=== PATIENT | female | born 1995 | race Caucasian/White ===

== ENCOUNTER 2019-12-06 18:25 | Inpatient (IN) | payer MEDICAID, SELFPAY ==
[2019-12-06 19:00] VITALS: BP 135/100; PULSE 113; RESP 19; TEMP 36.4; O2SAT 96
[2019-12-06 19:10] VITALS: BP 135/100; PULSE 113; RESP 18; TEMP 36.4; O2SAT 96
[2019-12-06] MEDS: LORazepam 1 MG TABLET 2 MG PO (19:42)
--- NOTE | 2019-12-06 19:42 | ED_ITS ---
HPI - Psych General Chief Complaint: Psychiatric Symptoms Stated Complaint: DEPRESSION,SECTION 12 Time Seen by Provider: 12/06/19 19:32 Source: patient Mode of arrival: ambulatory Limitations: no limitations History of Present Illness HPI Narrative: 24-year-old female presents via EMS on section 12 for ETOH abuse and depression. She reports that she has been using alcohol on a daily basis drinking at least 6 nips per day, possibly even more. She has been punching herself and states to have multiple bruises all over body. States that punching herself and feeling physical pain helps alleviate her motion all pain. She does not report any suicidal or homicidal ideation, and does not r eport thoughts of hurting her children or her family. She is unable to maintain her own well-being, and states to feel desperate for help at this time. She states that her fiance is really supportive, and helps her with the children. She feels like she is a bad mother. She does not report any physical complaints, denies chest pain or pressure, palpitations, shortness of breath, fevers, chills, abdominal pain, abdominal distention, dysuria, hematuria, edema, dizziness, lightheadedness, abnormal vaginal bleeding, and swelling to the hands and feet. MD complaint: feels depressed and alcohol abuse Onset (ago): month(s) Duration: constant History of same: No Relieving factors: none Exacerbating factors: alcohol Context: recent alcohol abuse Associated psychiatric symptoms: depression Associated symptoms: denies other symptoms If self harm: self-inflicted trauma Related Data Allergies Allergy/AdvReac Type Severity Reaction Status Date / Time No Known Allergies Allergy Unverified 11/02/19 16:25 Review of Systems Review of Systems: Constitutional: No Fever, No Chills ENT/Mouth: No Ear Pain, No Nasal Congestion, No sore throat Eyes: No Eye Pain, No Swelling, No Redness Cardiovascular: No Chest Pain, No SOB Respiratory: No Cough, No Sputum, No Dyspnea Gastrointestinal: No Nausea, No Vomiting, No Diarrhea, No Hematochezia, No Melena Genitourinary: No Dysuria, No Urinary Frequency, No Hematuria Musculoskeletal: No Myalgias Skin: positive bruises in various stages of healing secondary to self-harm, No Skin Lesions, No rash Neuro: No Weakness, No Numbness, No Paresthesias, No Dizziness, No Headache Psych: positive Anxiety, positive Depression, positive alcohol abuse, positive marijuana use No SI/HI Heme/Lymph: No Lymphadenopathy Endocrine: No Polyuria, No Polydipsia Yes all other systems are reviewed and are negative [facility] Past Medical History Attestation statement: The following information was validated with the patient. Medical History (Updated 12/07/19 @ 01:57 by Minda Lucia NP) Anxiety Post depression : 2 Para: 2 Total number of abortions (spontaneous and elective): 0 Date of Last Menstrual Period: 12/05/19 Social History Social History Alcohol intake: current Alcohol intake frequency: 3 or more drinks per day Alcohol type: hard liquor Smoking Status: Smoker, status unknown Smoked in Last 30 Days: No Use of substances other than those prescribed or required for medical reasons: No Advance Directives: No Advance Directives Information Provided: Yes Physical Exam Vital Signs: Vital Signs: Vital Signs Temp Pulse Resp BP Pulse Ox 12/06/19 22:17 97.7 F 96 18 139/85 98 12/06/19 19:10 97.5 F 113 H 18 135/100 H 96 12/06/19 19:00 97.5 F 113 H 19 135/100 H 96 Body Mass Index 30.0 Appearance: Alert. Oriented X3. moderate distress, depressed. Head: Normal external exam. Normocephalic. Atraumatic. No Harris signs noted. No raccoon eyes noted Eyes: PERRLA. EOMI. Conjunctiva and sclera normal. Eyelids normal. ENT: TM's Normal. Pharynx normal. Uvula midline. Moist mucous membranes. No trismus noted. No drooling noted. No muffled voice noted. Neck: Normal inspection. Neck supple. No adenopathy. Thyroid Normal. No meningeal signs. No neck mass noted. CVS: Normal heart rate and rhythm. Heart sound normal. No murmurs noted. Pulses equal to all extremities. Respiratory: No respiratory distress. Painless inspiration. Breath sounds normal. No wheezes/rales/rhonchi noted. Chest nontender. No accessory muscle usage noted or decreased air movement noted. Abdomen: Soft and nontender. Bowel sounds normal in all 4 quadrants. No distention noted. No organomegaly noted. No visible injury noted. Back: No CVA tenderness. Full range of motion noted. Skin: multiple bruises in various stages of healing from self-harm to arms and legs. Skin warm and dry. Normal skin color. Normal skin turgor. No rashes/lesions/lacerations noted. Extremities: No lower extremity edema. Extremities exhibit normal range of motion. Extremities nontender. Neuro: cranial nerves 2-12 intact, no focal neural deficits, strength 5/5 to all extremities, No motor deficit. No sensory deficit. Reflexes normal. Course Course Course Narrative: patient presents via EMS seeking help for alcohol abuse and depression. She has been drinking large amounts of alcohol on a daily basis as well as intentionally hurting herself. She is on a Section 12, we will order and consult and clear medically with CBC, Chem 7, urine pregna ncy test, and drugs of abuse screen. Reevaluation(s) Reevaluation #1: N Consult pending. Sign out to Dr. Toledo. Time: 01:56 MDM - Psych Differential Diagnosis Differential diagnosis: Likely acute psychosis, depression, acute anxiety, post- traumatic stress disorder, substance abuse, alcohol intoxication and mood disorder Restraints Face to Face Assessment: Face to Face Assessment: Current Situation: After assessment of the patient, a review of the pertinent medical record and a discussion with nursing staff, I feel the patient requires a restrain intervention. Reaction To: [] Medical Condition: [] Behavioral State: [] Continued Need: [] Medical Records Attestation: I reviewed the patient's medical records. Lab Data Attestation: I reviewed the patient's lab results. Result diagrams: 12/06/19 19:49 Labs: Lab Results 12/06/19 12/06/19 12/06/19 Range/Units 19:45 19:45 19:49 WBC 5.0 (4.8-10.8) X10*3/uL RBC 5.29 (4.20-5.50) X10*6/uL Hgb 17.2 H (12.0-16.0) g/dl Hct 49.9 H (37-47) % MCV 94.3 (80-98) fL MCH 32.5 (27.0-33.0) pg MCHC 34.5 (31.0-35.0) g/dl RDW 11.9 (11.0-16.0) % Plt Count 251 (160-400) X10*3/uL MPV 8.8 L (9.4-12.3) fL Immature Gran % (Auto) 0.2 (0.0-0.4) % Neut % (Auto) 57.9 (45-73) % Lymph % (Auto) 31.7 (20-40) % [place] % (Auto) 7.2 (2-11) % Eos % (Auto) 1.8 (0-4) % Baso % (Auto) 1.2 (0-2) % Lymph # (Auto) 1.6 (1.2-4.9) X10*3/uL [place] # (Auto) 0.4 (0.1-1.2) X10*3/uL Eos # (Auto) 0.1 (0.0-0.4) X10*3/uL Baso # (Auto) 0.1 (0.0-0.2) X10*3/uL Abs Immat Gran (auto) 0.01 (0.00-0.03) X10*3/uL Absolute Neuts (auto) 2.9 (2.0-8.3) X10*3/uL Absolute Nucleated RBC 0.000 (0.0-0.012) X10*3/uL Nucleated RBC % (auto) 0.0 (0.0-0.2) /100WBC Urine Test NEGATIVE (NEGATIVE) Urine Opiates Screen Not Detected (Not Detect) Ur Barbiturates Screen Not Detected (Not Detect) Ur Phencyclidine Scrn Not Detected (Not Detect) Ur Amphetamines Screen Not Detected (Not Detect) U Benzodiazepines Scrn Not Detected (Not Detect) Urine Cocaine Screen Not Detected (Not Detect) U Marijuana (THC) Screen POSITIVE H (Not Detect) Ethyl Alcohol mg/dL 12/06/19 Range/Units 19:49 WBC (4.8-10.8) X10*3/uL RBC (4.20-5.50) X10*6/uL Hgb (12.0-16.0) g/dl Hct (37-47) % MCV (80-98) fL MCH (27.0-33.0) pg MCHC (31.0-35.0) g/dl RDW (11.0-16.0) % Plt Count (160-400) X10*3/uL MPV (9.4-12.3) fL Immature Gran % (Auto) (0.0-0.4) % Neut % (Auto) (45-73) % Lymph % (Auto) (20-40) % [place] % (Auto) (2-11) % Eos % (Auto) (0-4) % Baso % (Auto) (0-2) % Lymph # (Auto) (1.2-4.9) X10*3/uL [place] # (Auto) (0.1-1.2) X10*3/uL Eos # (Auto) (0.0-0.4) X10*3/uL Baso # (Auto) (0.0-0.2) X10*3/uL Abs Immat Gran (auto) (0.00-0.03) X10*3/uL Absolute Neuts (auto) (2.0-8.3) X10*3/uL Absolute Nucleated RBC (0.0-0.012) X10*3/uL Nucleated RBC % (auto) (0.0-0.2) /100WBC Urine Test (NEGATIVE) Urine Opiates Screen (Not Detect) Ur Barbiturates Screen (Not Detect) Ur Phencyclidine Scrn (Not Detect) Ur Amphetamines Screen (Not Detect) U Benzodiazepines Scrn (Not Detect) Urine Cocaine Screen (Not Detect) U Marijuana (THC) Screen (Not Detect) Ethyl Alcohol 338 H* mg/dL Discharge Plan Discharge Clinical Impression: Depression, , Alcohol abuse, Self-injurious behavior
[2019-12-06 19:54] LABS: MANUAL DIFF FLAG NO
[2019-12-06 19:55] LABS: Basophils Absolute Auto 0.1 X10*3/uL (0.0-0.2); Basophils Percent Auto 1.2 % (0-2); Eosinophils Absolute Auto 0.1 X10*3/uL (0.0-0.4); Eosinophils Percent Auto 1.8 % (0-4); Hematocrit 49.9 % (37-47); Hemoglobin 17.2 g/dl (12.0-16.0); Imm Gran Abs Auto 0.01 X10*3/uL (0.00-0.03); Imm Gran Pct Auto 0.2 % (0.0-0.4); Lymphocytes Absolute Auto 1.6 X10*3/uL (1.2-4.9); Lymphocytes Percent Auto 31.7 % (20-40); Mean Corpuscular HGB Conc 34.5 g/dl (31.0-35.0); Mean Corpuscular Hemoglobin 32.5 pg (27.0-33.0); Mean Corpuscular Volume 94.3 fL (80-98); Mean Platelet Volume 8.8 fL (9.4-12.3); Monocytes Absolute Auto 0.4 X10*3/uL (0.1-1.2); Monocytes Percent Auto 7.2 % (2-11); Neutrophils Absolute Auto 2.9 X10*3/uL (2.0-8.3); Neutrophils Percent Auto 57.9 % (45-73); Platelet Count 251 X10*3/uL (160-400); Red Blood Count 5.29 X10*6/uL (4.20-5.50); Red Cell Distribution Width 11.9 % (11.0-16.0)
[2019-12-06 19:58] LABS: UPreg QC Valid YES; Urine Pregnancy NEGATIVE (NEGATIVE)
--- NOTE | 2019-12-06 20:14 | PC.NURSE ---
Pt asleep at current. No signs of distress. Respirations even and non-labored.
[2019-12-06 20:20] LABS: Ethanol 338 mg/dL
[2019-12-06 20:23] LABS: Amphetamine Screen Urine Not Detected (Not Detect); Barbiturates, Urine Not Detected (Not Detect); Benzodiazepines Screen Urine Not Detected (Not Detect); Cannabinoid Screen Urine POSITIVE (Not Detect); Cocaine Screen Urine Not Detected (Not Detect); Opiate Screen Urine Not Detected (Not Detect); Phencyclidine Screen Urine Not Detected (Not Detect)
--- NOTE | 2019-12-06 20:38 | PC.NURSE ---
ROMAINE faxed and called.
[2019-12-06 22:17] VITALS: BP 139/85; PULSE 96; RESP 18; TEMP 36.5; O2SAT 98
--- NOTE | 2019-12-07 06:35 | PC.NURSE ---
Patient notified that her pharmacy is [facility], which is closed currently, however called [facility], pharmacist notified that patient's Lexapro was increased 20 mg BID from 15 mg BID but patient never picked up was due on 11/13/19.
[2019-12-07 06:48] VITALS: BP 148/77; PULSE 93; RESP 20; TEMP 36.9; O2SAT 95
--- NOTE | 2019-12-07 07:10 | PC.NURSE ---
Report recieved. Pt currently sleeping, respirations even and unlabored, in no apparent distress. Pt waiting to be seen by N.
[2019-12-07 09:25] VITALS: BP 143/102; PULSE 119; RESP 17; TEMP 36.8; O2SAT 96
[2019-12-07] MEDS: Acetaminophen 325 MG TABLET 650 MG PO (11:36)
--- NOTE | 2019-12-07 12:43 | PC.NURSE ---
PT to move to main ED, report given to Natalee SIMMONS.
[2019-12-07] MEDS: 0.9 % Sodium Chloride 1,000 ML 999 ML IVCONT ×2 (13:05→18:10)
[2019-12-07 13:13] VITALS: BP 117/85; PULSE 111; RESP 16; TEMP 36.6; O2SAT 99
[2019-12-07] MEDS: LORazepam 2 MG/ML VIAL 1 MG IVPUSH (13:19)
[2019-12-07] MEDS: ondansetron HCL 4 MG/2 ML VIAL IVPUSH (13:19)
--- NOTE | 2019-12-07 14:43 | PC.NURSE ---
PT REPORTS JUST WAKING UP FROM [facility]. BANANA BAG JUST BROUGHT DOWN FROM PHARMACY, [facility] PER ORDER. PT REPORTS NOW WAKING UP WITH WORSE TREMORS AND NAUSEA. GOOSEBUMPS NOTED ON SKIN. PT APPEARS ANXIOUS. PA AWARE.
--- NOTE | 2019-12-07 14:59 | MHC.CARE ---
Addiction Consult Service note: This underwriter met with patient to discuss alcohol use and treatment options. Patient presented to [facility] ED due to alcohol use and self-injurious behaviors and has been cleared for discharge by N. Patient was willing to discuss treatment options and accepted information on [facility] Out[facility] Programs. Patient reports she has an upcoming outpatient therapy appointment. Patient reports that she is interested in going to detox however she is not sure if she wants to go straight from the hospital. Patient reports she is waiting to hear from her fiance however his phone is . This underwriter told patient to inform nurse if she would like us to work on securing a detox bed.
[2019-12-07] MEDS: Magnesium Oxide 400 MG TABLET PO (15:43)
[2019-12-07 16:12] VITALS: PULSE 124; O2SAT 96
--- NOTE | 2019-12-07 16:12 | PC.NURSE ---
pt provided with underwear and pads, assisted to bathroom. pa aware of hr.
[2019-12-07] MEDS: PHENobarbitaL sodium 130 MG/ML VIAL 219 MG IM (16:57)
--- NOTE | 2019-12-07 17:28 | PC.NURSE ---
[place] [facility]
--- NOTE | 2019-12-07 17:47 | PM.IMHP ---
History of Present Illness Date of Service: 12/07/19 Chief Complaint: Alcohol withdrawal 24/F with depression and alcohol dependence, drinks 8 to 10 nips of 100 proof daily and presented to the ED in crisis stating she has been punching hersel and is overwhelmed, though she denies suicidal ideation. She has progressively become increasing restless agitation with obvious signs of alcohol withdrwawal and was transfer to the main ED and started on alcohol withdrawal protocol with Phenobarbital. Review of Systems Review of Systems: Agitation, restlessness, no fever or chills, denies SI at that time. Yes all other systems are reviewed and are negative [facility] Medical History Anxiety Post depression Pertinent family history: Reports none Social History Household Members: Family and Children Housing: House Do you presently have visiting nurse or other home services: No Alcohol intake: current Alcohol intake frequency: 3 or more drinks per day Alcohol type: hard liquor Smoking Status: Smoker, status unknown Smoked in Last 30 Days: No Use of substances other than those prescribed or required for medical reasons: No Currently Displaying Signs/Symptoms of Drug Intoxication Withdrawal: No Have you been hit, kicked, punched, or otherwise hurt by someone within the past year? If so, by whom?: No Do you feel safe in your current relationship?: No Is there a partner from a previous relationship who is making you feel unsafe now?: No Are you made to feel afraid or neglected: No Advance Directives: No Advance Directives Information Provided: Yes Do you have thoughts of harming others: None Do you have a plan to hurt others: No Plan Recently lost weight without trying: No Meds Allergies Allergy/AdvReac Type Severity Reaction Status Date / Time No Known Allergies Allergy Verified 12/07/19 21:16 Home Medications Medication Instructions Recorded Confirmed Type clonidine HCl 0.1 mg PO BID PRN 12/07/19 12/07/19 History escitalopram oxalate [Lexapro] 20 mg PO BEDTIME 12/07/19 12/07/19 History Physical Exam Vital Signs and Narrative: Vital Signs: Last Vital Signs Temp 97.8 F 12/07/19 13:13 Pulse 124 H 10/22/20 16:12 Resp 16 12/07/19 13:13 BP 117/85 12/07/19 13:13 Pulse Ox 96 12/07/19 16:12 Body Mass Index 30.0 Constitutional Awake and Alert, seems anxious and somehow restless Neck Supple, No lymphadenopathy Cardiovascular RRR, No M/R/G, S1 S2, No S3 S4, No pedal edema Respiratory Lungs clear, No respiratory distress Gastrointestinal Non tender, Non-distended Skin No rash Neurological Alert & oriented x3 Psycholology Psychomotor agitation and denies SI Results Labs Labs: Laboratory Tests 12/06/19 12/06/19 12/06/19 19:45 19:45 19:49 WBC 5.0 RBC 5.29 Hgb 17.2 H Hct 49.9 H MCV 94.3 MCH 32.5 MCHC 34.5 RDW 11.9 Plt Count 251 MPV 8.8 L Immature Gran % (Auto) 0.2 Neut % (Auto) 57.9 Lymph % (Auto) 31.7 [place] % (Auto) 7.2 Eos % (Auto) 1.8 Baso % (Auto) 1.2 Lymph # (Auto) 1.6 [place] # (Auto) 0.4 Eos # (Auto) 0.1 Baso # (Auto) 0.1 Abs Immat Gran (auto) 0.01 Absolute Neuts (auto) 2.9 Absolute Nucleated RBC 0.000 Nucleated RBC % (auto) 0.0 Urine Test NEGATIVE Urine Opiates Screen Not Detected Ur Barbiturates Screen Not Detected Ur Phencyclidine Scrn Not Detected Ur Amphetamines Screen Not Detected U Benzodiazepines Scrn Not Detected Urine Cocaine Screen Not Detected U Marijuana (THC) Screen POSITIVE H Ethyl Alcohol 12/06/19 19:49 WBC RBC Hgb Hct MCV MCH MCHC RDW Plt Count MPV Immature Gran % (Auto) Neut % (Auto) Lymph % (Auto) [place] % (Auto) Eos % (Auto) Baso % (Auto) Lymph # (Auto) [place] # (Auto) Eos # (Auto) Baso # (Auto) Abs Immat Gran (auto) Absolute Neuts (auto) Absolute Nucleated RBC Nucleated RBC % (auto) Urine Test Urine Opiates Screen Ur Barbiturates Screen Ur Phencyclidine Scrn Ur Amphetamines Screen U Benzodiazepines Scrn Urine Cocaine Screen U Marijuana (THC) Screen Ethyl Alcohol 338 H* Assessment and Plan (1) Alcohol withdrawal syndrome: Status: Acute (2) Depression, : Status: Acute 24/F female with depression being admitted for alcohol withdrawal 1. Alcohol withdrawal--with active withdrawal -Phenobarbital by protocol -Vitamins replacement -CARE consult before discharge 2. Depression.. Continue meds when med rec is completed, sitterr and ROMAINE wallaceal before discharge
--- NOTE | 2019-12-07 17:50 | PC.NURSE ---
CALL PLACED AGAIN TO TRY AND GIVE REPORT TO C
[2019-12-07 17:57] VITALS: BP 158/94; PULSE 119; RESP 19; TEMP 36.6; O2SAT 95
--- NOTE | 2019-12-07 18:03 | PC.NURSE ---
THIRD ATTEMPT TO GIVE REPORT TO IM, NO ANSWER
[2019-12-07] MEDS: Metoclopramide HCl 10 MG/2 ML VIAL IVPUSH (18:10)
[2019-12-07] MEDS: diphenhydrAMINE HCL 50 MG/ML VIAL 25 MG IVPUSH (18:10)
[2019-12-07] MEDS: LORazepam 1 MG TABLET 2 MG PO (18:11)
--- NOTE | 2019-12-07 18:20 | PC.NURSE ---
[place] [facility]
[2019-12-07 18:39] VITALS: BP 132/82; PULSE 97; RESP 18; TEMP 35.8; O2SAT 96
[2019-12-07 19:34] LABS: Alanine Aminotransferase 61 U/L (0-31); Alkaline Phosphatase 68 U/L (39-117); Anion Gap 19 (12-20); Aspartate Amino Transferase 123 U/L (5-31); Bilirubin Total 2.1 mg/dL (0.0-1.0); Blood Urea Nitrogen 9 mg/dL (9-16); Calcium 7.9 mg/dL (8.4-10.2); Carbon Dioxide 19 mmol/L (22-29); Chloride 103 mmol/L (96-108); Creatinine Clr Calc Pharmacy 129.6; Estimated Glomerular Filt Rate > 60; Glucose Random 107 mg/dL (60-115); Lipase 51 U/L (8-78); Potassium 3.6 mmol/l (3.3-5.1); Sodium 137 mmol/L (135-145); Total Protein 6.4 g/dL (6.5-8.0)
[2019-12-07] MEDS: chlordiazePOXIDE HCl 25 MG CAPSULE 50 MG PO (20:00)
[2019-12-07] MEDS: Folic Acid 1 MG TABLET PO (20:06)
[2019-12-07] MEDS: PHENobarbitaL sodium 130 MG/ML VIAL 164 MG IM ×2 (20:07→23:11)
[2019-12-07] MEDS: Enoxaparin Sodium 40 MG/0.4 ML SYRINGE SUBCUT (20:08)
[2019-12-07] MEDS: Dextrose 5 % and 0.45 % NaCl 1,000 ML 100 ML IVCONT (20:13)
[2019-12-07] MEDS: Magnesium Hydrox/Alum Hydrox 30 ML ORAL.SUSP 15 ML PO (23:09)
[2019-12-07] MEDS: Flu Vacc QS2020-21(6mos up)/PF 0.5 ML SYRINGE IM (23:11)
[2019-12-07] MEDS: 0.9 % Sodium Chloride Flush 3 ML SYRINGE IVFLUSH (23:13)
[2019-12-08] VITALS (8 sets, daily range): BP systolic 121–147; BP diastolic 60–96; PULSE 80–100; RESP 18–20; TEMP 36.2–37.4; O2SAT 95–99
[2019-12-08] MEDS: Dextrose 5 % and 0.45 % NaCl 1,000 ML 100 ML IVCONT ×2 (06:03→16:04)
[2019-12-08] MEDS: Folic Acid 1 MG TABLET PO (09:02)
[2019-12-08] MEDS: PHENobarbitaL 15 MG TABLET 45 MG PO ×2 (09:03→20:39)
--- NOTE | 2019-12-08 09:13 | HO.PM.IMPN ---
Subjective Subjective Date of Service: 12/08/19 Interval History: Seen in follow up for alcohol withdrawal. She is feeling better. No agiation, no tremors and no thought of self harm Review of Systems Gen:no fever GI: no n/v Psych: no SI, no psychomotor agitations Physical Exam Vital Signs: Vital Signs: Vital Signs Temp Pulse Resp BP Pulse Ox 12/08/19 08:00 97.2 F 88 20 141/96 H 99 12/08/19 03:52 98.4 F 80 18 138/87 95 12/08/19 03:50 98.0 F 80 18 138/87 95 12/08/19 00:00 98.1 F 82 18 131/60 97 12/07/19 18:39 96.5 F L 97 18 132/82 96 12/07/19 17:57 97.9 F 119 H 19 158/94 H 95 12/07/19 16:12 124 H 96 12/07/19 13:13 97.8 F 111 H 16 117/85 99 12/07/19 09:25 98.3 F 119 H 17 143/102 H 96 Body Mass Index 30.0 Constitutional Awake and Alert, No apparent distress Neck Supple, No lymphadenopathy Cardiovascular RRR, No M/R/G, S1s2 Respiratory Lungs clear, No respiratory distress Gastrointestinal Non tender, Non-distended Skin No rash Neurological Alert & oriented x3 Psychological Appropriate affect, No SO, HI Objective Data Current Medications Generic Name Dose Route Start Last Admin Trade Name Freq PRN Reason Stop Dose Admin Clonidine HCl 0.1 mg 12/07/19 23:15 Clonidine Hcl 0.1 Mg Tablet PO BID PRN Anxiety Protocol Enoxaparin Sodium 40 mg 12/07/19 19:00 12/07/19 20:08 Enoxaparin Sodium 40 Mg/0.4 Ml Syringe SUBCUT 40 mg Q24H ESSIE Administration Escitalopram Oxalate 20 mg 12/08/19 21:00 Escitalopram Oxalate 20 Mg Tablet PO BEDTIME ESSIE Folic Acid 1 mg 12/07/19 18:58 12/08/19 09:02 Folic Acid 1 Mg Tablet PO 12/10/19 18:57 1 mg DAILY ESSIE Administration Hydroxyzine HCl 25 mg 12/07/19 18:58 Hydroxyzine Hcl 25 Mg Tablet PO Q6H PRN Anxiety Dextrose/Sodium Chloride 1,000 mls @ 100 mls/hr 12/07/19 18:58 12/08/19 06:03 D51/2ns IVCONT 100 mls/hr .Q10H ESSIE Administration Medication 1 each 12/08/19 09:00 No Benzodiazepines MISCELLANE DAILY ESSIE Phenobarbital 30 mg 12/10/19 09:00 Phenobarbital 30 Mg Tablet PO 12/11/19 21:01 BID ESSIE Phenobarbital 30 mg 12/12/19 09:00 Phenobarbital 30 Mg Tablet PO 12/13/19 09:01 DAILY ESSIE Phenobarbital 45 mg 12/08/19 09:00 12/08/19 09:03 Phenobarbital 15 Mg Tablet PO 12/09/19 21:01 45 mg BID ESSIE Administration Sodium Chloride 3 ml 12/08/19 00:00 12/08/19 09:03 0.9 % Sodium Chloride Flush 3 Ml Syringe IVFLUSH Not Given QSHIFT ESSIE Labs CBC & Chem 7: 12/06/19 19:49 12/07/19 18:53 Assessment and Plan (1) Self-injurious behavior: Status: Acute (2) Alcohol withdrawal syndrome: Status: Acute (3) Depression: Status: Acute (4) Depression, : Status: Acute Assessment and Plan: 24/F female with depression with self-injurious behavior dmitted for alcohol withdrawal 1. Alcohol withdrawal--Symptoms are better -Phenobarbital by protocol -Vitamins replacement -CARE consult before discharge -check mag level 2. Depression and self-injurious behavior Continue Escitalopram and Clonidine. BHN eval before discharge,
[2019-12-08] MEDS: Thiamine HCL 100 MG TABLET PO (09:55)
--- NOTE | 2019-12-08 12:04 | MHC.CM.PN ---
met with pt who reports when asked that she ios an open case with rafael/priscilla rojas in [place] her sw thru [facility] is [place] [phone] pt has 2 children ana born dec and artie 06/13/19 [facility] has been involved for 2 years a 49 a was filed by this workr with willie [facility]es[facility] intake rafael/priscilla rojas ..pts children are being cared for at this time by a grandmother toi rita [phone] and dasha mccain [phone] [facility] has been notifed of pts potentialdc date of sat 12/08 written 51A FAXED TO [facility] pt aware of this referral..pt has been seen by care team and coleman
[2019-12-08 12:15] LABS: Magnesium 1.4 mg/dL (1.6-2.6)
[2019-12-08] MEDS: hydrOXYzine HCL 25 MG TABLET PO (15:39)
[2019-12-08] MEDS: Magnesium Sulfate/H2O 2 GM/50 ML PIGGYBACK IV (16:52)
[2019-12-08] MEDS: cloNIDine HCL 0.1 MG TABLET PO (16:58)
[2019-12-08] MEDS: 0.9 % Sodium Chloride Flush 3 ML SYRINGE IVFLUSH (16:59)
[2019-12-08] MEDS: Enoxaparin Sodium 40 MG/0.4 ML SYRINGE SUBCUT (18:22)
[2019-12-08 18:32] LABS: Glucose Urine UA NEG (NEG); Leukocyte Esterase Urine NEG (NEG); Nitrite Urine NEG (NEG); Specific Gravity - Urine 1.015 (1.005-1.025); Urine Blood 3+ (NEG); Urine Ketones NEG (NEG); Urine Protein NEG (NEG-TRACE)
[2019-12-08 18:35] LABS: Appearance Urine CLEAR; Color Urine YELLOW
[2019-12-08 18:39] LABS: Squamous Epithelial Cell Urine 1+ /LPF; WBC Urine 0 /HPF (0-4)
[2019-12-08] MEDS: Escitalopram Oxalate 20 MG TABLET PO (20:39)
[2019-12-09] MEDS: hydrOXYzine HCL 25 MG TABLET PO (00:01)
[2019-12-09] MEDS: Dextrose 5 % and 0.45 % NaCl 1,000 ML 100 ML IVCONT (03:21)
[2019-12-09 03:34] VITALS: BP 122/72; PULSE 69; RESP 19; TEMP 36.7; O2SAT 97
[2019-12-09] MEDS: Folic Acid 1 MG TABLET PO (07:21)
[2019-12-09] MEDS: Thiamine HCL 100 MG TABLET PO (07:21)
[2019-12-09 08:00] VITALS: BP 131/74; PULSE 73; RESP 18; TEMP 36.6; O2SAT 98
[2019-12-09] MEDS: Magnesium Sulfate/H2O 2 GM/50 ML PIGGYBACK IV (08:58)
[2019-12-09] MEDS: PHENobarbitaL 15 MG TABLET 45 MG PO (08:58)
[2019-12-09 11:29] VITALS: BP 110/70; PULSE 70; RESP 18; TEMP 36.6; O2SAT 97
--- NOTE | 2019-12-09 14:28 | HO.PM.IMPN ---
Subjective Subjective Date of Service: 12/09/19 Interval History: the patient was seen and evaluated this morning Laying in bed, feels comfortable Denies any fever, chills or shortness of breath waiting to talk with the behavioral health nurse No reported other overnight events. Physical Exam Vital Signs: Vital Signs: Vital Signs Temp Pulse Resp BP Pulse Ox 12/09/19 11:29 97.9 F 70 18 110/70 97 12/09/19 08:00 97.9 F 73 18 131/74 98 12/09/19 03:34 98.0 F 69 19 122/72 97 12/08/19 23:41 98.2 F 98 18 121/80 98 12/08/19 19:11 98.3 F 100 18 139/73 97 12/08/19 15:25 99.4 F 90 18 123/71 96 Body Mass Index 30.0 Constitutional : Alert, oriented, Mildly anxious Neck : Normal inspection, Supple Cardiovascular : RRR, S1 S2, no lower extremity edema Respiratory : Good bilateral air entry, no crackles, wheezes or rhonchi Gastrointestinal: soft, lax, Normal bowel sounds, Non tender Skin : Warm/Dry, No rash Neurological : Alert & oriented x3, No focal deficit Objective Data Current Medications Generic Name Dose Route Start Last Admin Trade Name Freq PRN Reason Stop Dose Admin Clonidine HCl 0.1 mg 12/07/19 23:15 12/08/19 16:58 Clonidine Hcl 0.1 Mg Tablet PO 0.1 mg BID PRN Administration Anxiety Protocol Enoxaparin Sodium 40 mg 12/07/19 19:00 12/08/19 18:22 Enoxaparin Sodium 40 Mg/0.4 Ml Syringe SUBCUT 40 mg Q24H ESSIE Administration Escitalopram Oxalate 20 mg 12/08/19 21:00 12/08/19 20:39 Escitalopram Oxalate 20 Mg Tablet PO 20 mg BEDTIME ESSIE Administration Folic Acid 1 mg 12/07/19 18:58 12/09/19 07:21 Folic Acid 1 Mg Tablet PO 12/10/19 18:57 1 mg DAILY ESSIE Administration Hydroxyzine HCl 25 mg 12/07/19 18:58 12/09/19 00:01 Hydroxyzine Hcl 25 Mg Tablet PO 25 mg Q6H PRN Administration Anxiety Medication 1 each 12/08/19 09:00 No Benzodiazepines MISCELLANE DAILY ESSIE Phenobarbital 30 mg 12/10/19 09:00 Phenobarbital 30 Mg Tablet PO 12/11/19 21:01 BID ESSIE Phenobarbital 30 mg 12/12/19 09:00 Phenobarbital 30 Mg Tablet PO 12/13/19 09:01 DAILY ESSIE Phenobarbital 45 mg 12/08/19 09:00 12/09/19 08:58 Phenobarbital 15 Mg Tablet PO 12/09/19 21:01 45 mg BID ESSIE Administration Sodium Chloride 3 ml 12/08/19 00:00 12/09/19 07:21 0.9 % Sodium Chloride Flush 3 Ml Syringe IVFLUSH Not Given QSHIFT ESSIE Thiamine HCl 100 mg 12/08/19 09:25 12/09/19 07:21 Thiamine Hcl 100 Mg Tablet PO 12/10/19 09:01 100 mg DAILY ESSIE Administration Labs CBC & Chem 7: 12/06/19 19:49 12/07/19 18:53 Assessment and Plan (1) Self-injurious behavior: Status: Acute (2) Alcohol withdrawal syndrome: Status: Acute (3) Depression: Status: Acute (4) Depression, : Status: Acute Assessment and Plan: 24/F female with depression with self-injurious behavior dmitted for alcohol withdrawal Alcohol withdrawal Symptoms resolving, mildly anxious Phenobarbital by protocol Vitamins replacement CARE consult appreciated Hypomagnesemia Magnesium of 1.4 Magnesium replacement given Depression and self-injurious behavior Continue Escitalopram and Clonidine. pendingBHN eval before discharge for safety
[2019-12-09] MEDS: cloNIDine HCL 0.1 MG TABLET PO (15:22)
--- NOTE | 2019-12-09 15:35 | PM.DS ---
DS: Providers Provider Date of admission: 12/07/19 16:51 Primary care physician: Keesha Rodriguez NP Consults: 12/06/19 19:32 Consult to Crisis Stat Reason for consultation: depression, ETOH abuse DS: Diagnosis Discharge Diagnosis (1) Self-injurious behavior: Status: Acute (2) Alcohol withdrawal syndrome: Status: Acute (3) Depression: Status: Acute (4) Depression, : Status: Acute (5) Alcohol abuse: Status: Acute (6) Hypomagnesemia: Status: Acute DS: Summary Hospital Course Hospital Course: with depression and alcohol dependence, drinks 8 to 10 nips of 100 proof daily and presented to the ED in crisis stating she has been punching hersel and is overwhelmed, though she denies suicidal ideation. She has progressively become increasing restless agitation with obvious signs of alcohol withdrwawal and was transfer to the main ED and started on alcohol withdrawal protocol with Phenobarbital. The patient was admitted to the hospital and treated with phenobarbital and vitamin replacement with good response as her symptoms improved during the hospital stay. She feels more comfortable today and reported that she want to quit alcohol completely and follow-up with outpatient resources reported by the care team and behavioral health network who evaluated her and cleared her to be discharged from the hospital as she has no risk to herself or anyone else at this point. Status at Discharge Functional status at discharge: independent ambulation Overall status at discharge: patient is back to baseline Time Spent with Patient Time attestation: Total time spent providing and/or coordinating discharge services: Time spent: Greater than 30 minutes Physical Exam Vital Signs: Vital Signs: Vital Signs Temp Pulse Resp BP Pulse Ox 12/09/19 11:29 97.9 F 70 18 110/70 97 12/09/19 08:00 97.9 F 73 18 131/74 98 12/09/19 03:34 98.0 F 69 19 122/72 97 12/08/19 23:41 98.2 F 98 18 121/80 98 12/08/19 19:11 98.3 F 100 18 139/73 97 Body Mass Index 30.0 Constitutional : Alert, oriented, Mildly anxious Neck : Normal inspection, Supple Cardiovascular : RRR, S1 S2, no lower extremity edema Respiratory : Good bilateral air entry, no crackles, wheezes or rhonchi Gastrointestinal: soft, lax, Normal bowel sounds, Non tender Skin : Warm/Dry, No rash Neurological : Alert & oriented x3, No focal deficit DS: Data Data Completed and Pending Labs on day of discharge: Labs from last 24 hours 12/08/19 18:28 Urine Color YELLOW Urine Appearance CLEAR Urine pH 7.0 Ur Specific [place] 1.015 Urine Protein NEG Urine Glucose (UA) NEG Urine Ketones NEG Urine Blood 3+ H Urine Nitrite NEG Ur Leukocyte Esterase NEG Urine RBC 1-4 Urine WBC 0 Ur Squamous Epith Cells 1+ Urine Bacteria NONE Discharge Plan Discharge Patient Disposition: Home, Self-Care Referrals: Keesha Rodriguez, SCOURING MACHINE OPERATOR [Primary Care Provider] - Discharge Medications: New thiamine HCl (vitamin B1) 100 mg Tablet 100 mg PO DAILY Qty: 30 RF: 0 folic acid 1 mg Tablet 1 mg PO DAILY Qty: 30 RF: 0 Continued escitalopram oxalate [Lexapro] 20 mg Tablet 20 mg PO BEDTIME RF: 0 clonidine HCl 0.1 mg Tablet 0.1 mg PO BID PRN (Reason: Anxiety) RF: 0 Discharge Orders: Discharge Order (Routine); Ordered 12/09/19 Ordered By: Jose Nguyễn Diet: advance to your usual diet Activity on Discharge: As tolerated Visit Report Forms: Patient Portal Discharge page Care Plan Goals: read below Health Concerns: read below Plan of Treatment: you were admitted to the hospital for treatment of alcohol abuse and withdrawal symptoms which was controlled with using phenobarbital and vitamin replacement. You were noticed to have low magnesium level which was replaced as well. You were evaluated by the behavioral health team for depression with self injury behavior. Take clears you to be discharged from the hospital and failure to outpatient resources. Take folic acid and thiamin vitamins Avoid using alcohol Follow-up with PCP
[2019-12-09 15:41] VITALS: BP 144/89; PULSE 91; RESP 18; TEMP 37.1; O2SAT 97
== END 2019-12-09 16:00 | disposition home or self-care (01) | DRG 425 ==
LOC: HO.ED 12-07 16:34 → HO.IMC 12-07 17:16
PROVIDERS: Nurse Practitioner Family; Physician Assistant; Admitting Provider Internal Medicine; Emergency Provider Emergency Medicine; PCP Nurse Practitioner Family; Visit Provider Student in an Organized Health Care Education/Training Program
DX: E83.42 Hypomagnesemia (principal); F10.239 Alcohol dependence with withdrawal, unspecified; F53.0 Postpartum depression; Z23 Encounter for immunization; Z91.5 Personal history of self-harm; Z79.899 Other long term (current) drug therapy
CPT/HCPCS: 36415; 80048; 80076; 80184; 80307; 80320; 81001; 81025; 83690; 83735; 85025; 90686; 96361; 96365; 96372; 96375; 96376; 99285; J1200; J1650; J2060; J2405; J2560; J2765; J3411; J3475

== ENCOUNTER 2019-12-26 18:18 | Inpatient (IN) | payer MEDICAID, SELFPAY ==
[2019-12-26 19:36] VITALS: BP 155/97; PULSE 132; RESP 20; TEMP 36.1; O2SAT 97; BMI 33.3
--- NOTE | 2019-12-26 20:32 | ED_ITS ---
HPI - General Adult General Chief complaint: General Medical Stated complaint: multiple complaints Time Seen by Provider: 12/26/19 20:24 Source: patient Mode of arrival: ambulatory Limitations: no limitations History of Present Illness HPI narrative: 24-year-old female history of vomiting related to her menstruation, patient also is a daily drinker of alcohol, patient was unable to drink alcohol for the past 3 days due to vomiting, patient now is suffering from withdrawal of symptoms, symptoms started 3 days ago, as constant vomiting and upper abdominal cramps, symptom severity is moderate rated at 7/10, pain with no radiation, no other associated symptoms. Related Data Home Medications Medication Instructions Recorded Confirmed clonidine HCl 0.1 mg PO BID PRN 12/07/19 12/26/19 escitalopram oxalate [Lexapro] 20 mg PO BEDTIME 12/07/19 12/26/19 Previous Rx's Medication Instructions Recorded folic acid 1 mg PO DAILY #30 tab 12/09/19 thiamine HCl (vitamin B1) 100 mg PO DAILY #30 tab 12/09/19 Allergies Allergy/AdvReac Type Severity Reaction Status Date / Time No Known Allergies Allergy Verified 12/07/19 21:16 Review of Systems Review of Systems: All other systems are reviewed and are negative Constitutional: Reports as per HPI and Reports no additional constitutional co mplaints Eyes: Reports as per HPI and Reports no additional eye complaints Reports system reviewed and no additional complaints, except as documented Cardiovascular: Reports as per HPI and Reports no additional cardiovascular complaints Respiratory: Reports as per HPI and Reports no additional respiratory complaints Gastrointestinal: Reports as per HPI and Reports no additional gastrointestinal complaints Genitourinary: Reports no additional female genitourinary complaints Musculoskeletal: Reports no additional musculoskeletal complaints Skin/Breast: Reports system reviewed and no additional complaints, except as docu Psychiatric: Reports no additional psychiatric complaints Endocrine: Reports no additional endocrine complaints Hematologic/Lymphatic: Reports no additional hematologic/lymphatic complaints Allergic/Immunologic: Reports no additional allergic/immunologic complaints Reports system reviewed and no additional complaints, except as documented and Reports Abnormal speech present [facility] Past Medical History Medical History Alcohol abuse Anxiety Depression Post depression Social History Social History Household Members: Family and Children Housing: House Alcohol intake: current Alcohol intake frequency: 3 or more drinks per day Alcohol type: hard liquor Smoking Status: Never smoker Use of substances other than those prescribed or required for medical reasons: No Advance Directives: No Advance Directives Information Provided: No service: No Physical Exam Vital Signs: Vital Signs: Last Vital Signs Temp 97.0 F 12/26/19 19:36 Pulse 114 H 12/26/19 22:00 Resp 17 12/26/19 22:00 BP 125/70 12/26/19 22:00 Pulse Ox 98 12/26/19 22:00 Body Mass Index 33.3 Vital signs have been reviewed as normal and appeared to be correct. Hypertensive. Tachycardia l. Respiration rate normal. Temperature normal. Oxygen saturation normal. Appearance: Alert. Oriented X3, appear anxious, with involuntary tremors Head: Normal external exam. Normocephalic. Atraumatic. No Harris signs noted. Positive tongue fasciculation Eyes: PERRLA. EOMI. Conjunctiva and sclera normal. Eyelids normal. ENT: EAC normal. TM's Normal. Pharynx normal. Uvula midline. Dry mucous membranes. No trismus noted. No drooling noted. No muffled voice noted. Neck: Normal inspection. Neck supple. FROM. No adenopathy. Thyroid Normal. No meningeal signs. No neck mass noted. CVS: Normal heart rate and rhythm. Heart sound normal. No murmurs noted. Pulses normal throughout. Respiratory: No respiratory distress. Painless inspiration. Breath sounds normal. No wheezes/rales/rhonchi noted. Chest nontender. No accessory muscle usage noted or decreased air movement noted. Abdomen: Mild epigastric tenderness, no rebound tenderness, no guarding. Bowel sounds normal in all 4 quadrants. No distention noted. No organomegaly noted. No visible injury noted. Back: No CVA tenderness. Full range of motion noted. Skin: Skin warm and dry. Normal skin color. Normal skin turgor. No rashes/lesions/lacerations noted. Extremities: No lower extremity edema. Extremities exhibit normal range of motion. Extremities nontender. Neuro: Oriented X 3. No motor deficit. No sensory deficit. Reflexes normal. Involuntary tremors to both hands, with tongue fasciculation. Course Course Course Narrative: 24-year-old female daily alcoholic, unable to keep or drink alcohol for the past 3 days due to vomiting which usually related to her menstruation (patient just finished her menstruation today) patient with intract able vomiting and also sustaining alcohol withdrawal symptoms. We will start the patient on phenobarb, give banana bag, hydrate, antiemetic medication, reassess, probably inpatient admission. Medical Decision Making MDM Narrative Medical decision making narrative: Assessment and plan. 24-year-old female with chronic alcoholism problem, presented with alcohol withdrawal due to intractable vomiting, patient showing obvious sign of alcohol withdrawal patient was put on phenobarb protocol for her symptoms, patient get admitted for IV hydration/anti medics/continue with phenobarb protocol. Lab Data Lab results reviewed: Yes I reviewed the patient's lab results. Result diagrams: 12/26/19 20:41 12/26/19 20:41 Labs: Lab Results 12/26/19 12/26/19 12/26/19 Range/Units 20:41 20:41 20:41 WBC 11.1 H (4.8-10.8) X10*3/uL RBC 4.71 (4.20-5.50) X10*6/uL Hgb 15.6 (12.0-16.0) g/dl Hct 45.5 (37-47) % MCV 96.6 (80-98) fL MCH 33.1 H (27.0-33.0) pg MCHC 34.3 (31.0-35.0) g/dl RDW 12.4 (11.0-16.0) % Plt Count 207 (160-400) X10*3/uL MPV 8.9 L (9.4-12.3) fL Immature Gran % (Auto) 0.4 (0.0-0.4) % Neut % (Auto) 90.9 H (45-73) % Lymph % (Auto) 5.3 L (20-40) % [place] % (Auto) 3.0 (2-11) % Eos % (Auto) 0.0 (0-4) % Baso % (Auto) 0.4 (0-2) % Lymph # (Auto) 0.6 L (1.2-4.9) X10*3/uL [place] # (Auto) 0.3 (0.1-1.2) X10*3/uL Eos # (Auto) 0.0 (0.0-0.4) X10*3/uL Baso # (Auto) 0.1 (0.0-0.2) X10*3/uL Abs Immat Gran (auto) 0.04 H (0.00-0.03) X10*3/uL Absolute Neuts (auto) 10.1 H (2.0-8.3) X10*3/uL Absolute Nucleated RBC 0.000 (0.0-0.012) X10*3/uL Nucleated RBC % (auto) 0.0 (0.0-0.2) /100WBC Smear Tech's Comments VERIFIED Sodium 138 (135-145) mmol/L Potassium 4.4 D (3.3-5.1) mmol/l Chloride 98 (96-108) mmol/L Carbon Dioxide 14 L (22-29) mmol/L Anion Gap 30 H (12-20) BUN 8 L (9-16) mg/dL Creatinine 0.76 (0.5-1.4) mg/dL Estim Creat Clear Calc 124.8 Estimated GFR > 60 Random Glucose 109 (60-115) mg/dL Calcium 9.5 D (8.4-10.2) mg/dL Total Bilirubin 2.3 H (0.0-1.0) mg/dL Direct Bilirubin 1.2 H (0.0-0.5) mg/dL AST 146 H (5-31) U/L ALT 75 H (0-31) U/L Alkaline Phosphatase 72 (39-117) U/L Total Protein 7.9 D (6.5-8.0) g/dL Albumin 4.8 (3.5-5.0) g/dL Lipase 32 (8-78) U/L Urine Color Urine Appearance Urine pH (5.0-8.0) Ur Specific [place] (1.005-1.025) Urine Protein (NEG-TRACE) MG/DL Urine Glucose (UA) (NEG) MG/DL Urine Ketones (NEG) MG/DL Urine Blood (NEG) Urine Nitrite (NEG) Ur Leukocyte Esterase (NEG) Urine RBC (0) /HPF Urine WBC (0-4) /HPF Ur Squamous Epith Cells /LPF Urine Bacteria /LPF Hyaline Casts /LPF Urine Mucus /LPF Urine Test (NEGATIVE) Ethyl Alcohol < 10 mg/dL COVID-19 ([place]) (Negative) COVID-19 Clin Com 12/26/19 12/26/19 Range/Units 22:50 22:50 WBC (4.8-10.8) X10*3/uL RBC (4.20-5.50) X10*6/uL Hgb (12.0-16.0) g/dl Hct (37-47) % MCV (80-98) fL MCH (27.0-33.0) pg MCHC (31.0-35.0) g/dl RDW (11.0-16.0) % Plt Count (160-400) X10*3/uL MPV (9.4-12.3) fL Immature Gran % (Auto) (0.0-0.4) % Neut % (Auto) (45-73) % Lymph % (Auto) (20-40) % [place] % (Auto) (2-11) % Eos % (Auto) (0-4) % Baso % (Auto) (0-2) % Lymph # (Auto) (1.2-4.9) X10*3/uL [place] # (Auto) (0.1-1.2) X10*3/uL Eos # (Auto) (0.0-0.4) X10*3/uL Baso # (Auto) (0.0-0.2) X10*3/uL Abs Immat Gran (auto) (0.00-0.03) X10*3/uL Absolute Neuts (auto) (2.0-8.3) X10*3/uL Absolute Nucleated RBC (0.0-0.012) X10*3/uL Nucleated RBC % (auto) (0.0-0.2) /100WBC Smear Tech's Comments Sodium (135-145) mmol/L Potassium (3.3-5.1) mmol/l Chloride (96-108) mmol/L Carbon Dioxide (22-29) mmol/L Anion Gap (12-20) BUN (9-16) mg/dL Creatinine (0.5-1.4) mg/dL Estim Creat Clear Calc Estimated GFR Random Glucose (60-115) mg/dL Calcium (8.4-10.2) mg/dL Total Bilirubin (0.0-1.0) mg/dL Direct Bilirubin (0.0-0.5) mg/dL AST (5-31) U/L ALT (0-31) U/L Alkaline Phosphatase (39-117) U/L Total Protein (6.5-8.0) g/dL Albumin (3.5-5.0) g/dL Lipase (8-78) U/L Urine Color YELLOW Urine Appearance HAZY Urine pH 6.0 (5.0-8.0) Ur Specific [place] >= 1.030 H (1.005-1.025) Urine Protein 2+ H (NEG-TRACE) MG/DL Urine Glucose (UA) NEG (NEG) MG/DL Urine Ketones >=80 (NEG) MG/DL Urine Blood 3+ H (NEG) Urine Nitrite NEG (NEG) Ur Leukocyte Esterase NEG (NEG) Urine RBC 1-4 (0) /HPF Urine WBC 15-29 H (0-4) /HPF Ur Squamous Epith Cells 2+ /LPF Urine Bacteria 2+ /LPF Hyaline Casts 10-14 /LPF Urine Mucus 2+ /LPF Urine Test NEGATIVE (NEGATIVE) Ethyl Alcohol mg/dL COVID-19 ([place]) Negative (Negative) COVID-19 Clin Com See Note Discharge Plan Discharge Clinical Impression: Alcohol withdrawal Qualifiers: Complication of substance-induced condition: uncomplicated Qualified Code(s): F10.230 - Alcohol dependence with withdrawal, uncomplicated Patient Disposition: Admitted As Inpatient
[2019-12-26] MEDS: 0.9 % Sodium Chloride 500 ML 1000 ML IV ×2 (20:37→23:53)
[2019-12-26 20:48] VITALS: BP 138/85; PULSE 116; RESP 14; O2SAT 98
[2019-12-26 20:49] LABS: Basophils Absolute Auto 0.1 X10*3/uL (0.0-0.2); Basophils Percent Auto 0.4 % (0-2); Hematocrit 45.5 % (37-47); Hemoglobin 15.6 g/dl (12.0-16.0); Imm Gran Abs Auto 0.04 X10*3/uL (0.00-0.03); Imm Gran Pct Auto 0.4 % (0.0-0.4); Lymphocytes Absolute Auto 0.6 X10*3/uL (1.2-4.9); Lymphocytes Percent Auto 5.3 % (20-40); MANUAL DIFF FLAG SCAN; Mean Corpuscular HGB Conc 34.3 g/dl (31.0-35.0); Mean Corpuscular Hemoglobin 33.1 pg (27.0-33.0); Mean Corpuscular Volume 96.6 fL (80-98); Mean Platelet Volume 8.9 fL (9.4-12.3); Monocytes Absolute Auto 0.3 X10*3/uL (0.1-1.2); Neutrophils Absolute Auto 10.1 X10*3/uL (2.0-8.3); Neutrophils Percent Auto 90.9 % (45-73); Platelet Count 207 X10*3/uL (160-400); Red Blood Count 4.71 X10*6/uL (4.20-5.50); Red Cell Distribution Width 12.4 % (11.0-16.0); SCAN SMEAR FLAG 1; White Blood Count 11.1 X10*3/uL (4.8-10.8)
[2019-12-26] MEDS: Famotidine/PF 20 MG/2 ML VIAL IVPUSH ×2 (20:53→23:52)
[2019-12-26] MEDS: ondansetron HCL 4 MG/2 ML VIAL IVPUSH ×2 (20:53→23:52)
[2019-12-26] MEDS: PHENobarbitaL sodium 130 MG/ML VIAL 183 MG IM (20:53)
--- NOTE | 2019-12-26 20:59 | PC.NURSE ---
pt lined and labbed by this float rn, placed on teletypesetter monitor. pt shaking, 116 bpm sinus tachy on monitor. pt in acute withdrawal from alcohol. pt medicated with first dose of phenobarb by this rn, zofran, pepcid and fluids. pharmacy called for banana bag. reported this to primary nurse sarah kiser
[2019-12-26 21:09] LABS: Ethanol < 10 mg/dL; SLIDE REVIEW VERIFIED
[2019-12-26 21:30] LABS: Alanine Aminotransferase 75 U/L (0-31); Albumin Level 4.8 g/dL (3.5-5.0); Alkaline Phosphatase 72 U/L (39-117); Anion Gap 30 (12-20); Aspartate Amino Transferase 146 U/L (5-31); Bilirubin Direct 1.2 mg/dL (0.0-0.5); Bilirubin Total 2.3 mg/dL (0.0-1.0); Blood Urea Nitrogen 8 mg/dL (9-16); Calcium 9.5 mg/dL (8.4-10.2); Carbon Dioxide 14 mmol/L (22-29); Chloride 98 mmol/L (96-108); Creatinine Clr Calc Pharmacy 124.8; Estimated Glomerular Filt Rate > 60; Glucose Random 109 mg/dL (60-115); Lipase 32 U/L (8-78); Potassium 4.4 mmol/l (3.3-5.1); Sodium 138 mmol/L (135-145); Total Protein 7.9 g/dL (6.5-8.0)
[2019-12-26 21:31] VITALS: BP 130/82; PULSE 107; RESP 18; O2SAT 99
--- NOTE | 2019-12-26 21:45 | PC.NURSE ---
BANANA BAG HUNG BY THIS RN
[2019-12-26 22:00] VITALS: BP 125/70; PULSE 114; RESP 17; O2SAT 98
[2019-12-26 22:59] LABS: Glucose Urine UA NEG (NEG); Leukocyte Esterase Urine NEG (NEG); Nitrite Urine NEG (NEG); Specific Gravity - Urine >= 1.030 (1.005-1.025); Urine Blood 3+ (NEG); Urine Ketones >=80 MG/DL (NEG); Urine Protein 2+ MG/DL (NEG-TRACE)
[2019-12-26 23:10] LABS: Appearance Urine HAZY; Color Urine YELLOW; UACC CULT YES
[2019-12-26 23:11] LABS: Bacteria Urine 2+ /LPF; Mucus Urine 2+ /LPF; Squamous Epithelial Cell Urine 2+ /LPF
[2019-12-26 23:12] LABS: UPreg QC Valid YES; Urine Pregnancy NEGATIVE (NEGATIVE)
[2019-12-26 23:14] LABS: COVID-19 Test Negative (Negative)
[2019-12-26 23:48] VITALS: BP 148/91; PULSE 125; RESP 22; O2SAT 97
[2019-12-26] MEDS: Acetaminophen 325 MG TABLET 650 MG PO (23:53)
--- NOTE | 2019-12-27 00:29 | PC.NURSE ---
CALL TO FLOOR
[2019-12-27] MEDS: PHENobarbitaL sodium 130 MG/ML VIAL 137 MG IM ×2 (01:46→05:31)
[2019-12-27 02:02] VITALS: BP 143/76; PULSE 124; RESP 18; TEMP 36; O2SAT 98
[2019-12-27] MEDS: 0.9 % Sodium Chloride Flush 3 ML SYRINGE IVFLUSH ×2 (02:21→08:41)
[2019-12-27] MEDS: hydrOXYzine HCL 25 MG TABLET PO (03:21)
[2019-12-27 04:00] VITALS: BP 136/78; PULSE 91; RESP 16; TEMP 36.9; O2SAT 98
[2019-12-27 04:58] LABS: MANUAL DIFF FLAG NO
--- NOTE | 2019-12-27 04:58 | PM.IMHP ---
History of Present Illness Date of Service: 12/26/19 Chief Complaint: alcohol withdrawal this is a 24-year-old female with no significant past medical history except for alcohol abuse who presents to the hospital stating that she quit drinking alcohol 3 days ago and has become shaky, generalized weakness and is requesting help to stop drinking. She is also complaining of increased frequency of her menstrual cycles. Patient reports that she has been having periods every 2 weeks lasting 4-7 days, she denies having any abdominal pain, she has no dizziness, chest pain, no shortness of breath. She just feels generally weak sees she stop drinking. She also complains of diarrhea with no blood. No urinary symptoms and no lower extremity edema. On arrival to the ED hemodynamically stable except for heart rate of 132 initially, now within normal range, labs significant for WBC count of 11.1, hemoglobin of 15.6, total bili of 2.3, direct bili of 1.2, AST of 146, ALT of 75 UA positive for blood but negative for nitrites and leukocyte Estrace patient will be admitted for alcohol withdrawal past medical history: Depression, anxiety, alcohol abuse past surgical history: Denies family history: Alcohol addiction as well as polysubstance abuse present in both parents social history: Comes from home, denies tobacco use, denies any illicit drug use, drinks about 6 shots of vodka daily Review of Systems Review of Systems: Yes all other systems are reviewed and are negative [facility] Medical History Alcohol abuse Anxiety Depression Post depression Social History Household Members: Family Housing: House Do you presently have visiting nurse or other home services: No Alcohol intake: current Alcohol intake frequency: 3 or more drinks per day Alcohol type: hard liquor Smoking Status: Never smoker Use of substances other than those prescribed or required for medical reasons: No Have you been hit, kicked, punched, or otherwise hurt by someone within the past year? If so, by whom?: No Do you feel safe in your current relationship?: No Current Relationship Is there a partner from a previous relationship who is making you feel unsafe now?: No Are you made to feel afraid or neglected: No Advance Directives: No Advance Directives Information Provided: No Do you have thoughts of harming others: None Do you have a plan to hurt others: No Plan Recently lost weight without trying: No service: No Meds Allergies Allergy/AdvReac Type Severity Reaction Status Date / Time No Known Allergies Allergy Verified 12/07/19 21:16 Home Medications Medication Instructions Recorded Confirmed Type clonidine HCl 0.1 mg PO BID PRN 12/07/19 12/26/19 History escitalopram oxalate [Lexapro] 20 mg PO BEDTIME 12/07/19 12/26/19 History Physical Exam Vital Signs and Narrative: Vital Signs: Last Vital Signs Temp 98.5 F 12/27/19 04:00 Pulse 91 12/27/19 04:00 Resp 16 12/27/19 04:00 BP 136/78 12/27/19 04:00 Pulse Ox 98 12/27/19 04:00 Body Mass Index 33.3 Const: Other: appears very anxious, jittery, General: cooperative and anxious Orientation/consciousness: patient oriented x3 Eyes: General: appearance normal, both eyes and all related structures Pupils: Equal, round and reactive pupils present Resp: Effort & Inspection: normal respiratory effort and able to speak in complete sentences Auscultation: clear to auscultation bilaterally Cardio: Rate: regular rate Rhythm: regular rhythm GI: Palpation (GI): Soft to palpation Auscultation: normal bowel sounds Skin: General skin exam: no rashes or lesions noted Neuro: General: patient oriented x3 Cranial nerves: Yes Equal, round and reactive pupils present Cognition (Neuro): normal cognition Motor exam (neuro): Asterixis during motor activity present Extrem: General: Yes normal to inspection and Yes no pedal edema Results Labs CBC and Chem 7: 12/26/19 20:41 12/26/19 20:41 Labs: Laboratory Results - last 24 hr 12/26/19 12/26/19 12/26/19 20:41 20:41 20:41 MCV 96.6 MCH 33.1 H MCHC 34.3 RDW 12.4 Plt Count 207 MPV 8.9 L Immature Gran % (Auto) 0.4 Neut % (Auto) 90.9 H Lymph % (Auto) 5.3 L [place] % (Auto) 3.0 Eos % (Auto) 0.0 Baso % (Auto) 0.4 Lymph # (Auto) 0.6 L [place] # (Auto) 0.3 Eos # (Auto) 0.0 Baso # (Auto) 0.1 Abs Immat Gran (auto) 0.04 H Absolute Neuts (auto) 10.1 H Absolute Nucleated RBC 0.000 Nucleated RBC % (auto) 0.0 Smear Tech's Comments VERIFIED Anion Gap 30 H Estim Creat Clear Calc 124.8 Estimated GFR > 60 Random Glucose 109 Calcium 9.5 D Total Bilirubin 2.3 H Direct Bilirubin 1.2 H AST 146 H ALT 75 H Alkaline Phosphatase 72 Total Protein 7.9 D Albumin 4.8 Lipase 32 Urine Color Urine Appearance Urine pH Ur Specific [place] Urine Protein Urine Glucose (UA) Urine Ketones Urine Blood Urine Nitrite Ur Leukocyte Esterase Urine RBC Urine WBC Ur Squamous Epith Cells Urine Bacteria Hyaline Casts Urine Mucus Urine Test Ethyl Alcohol < 10 COVID-19 ([place]) COVID-[place] [employer] 12/26/19 12/26/19 22:50 22:50 MCV MCH MCHC RDW Plt Count MPV Immature Gran % (Auto) Neut % (Auto) Lymph % (Auto) [place] % (Auto) Eos % (Auto) Baso % (Auto) Lymph # (Auto) [place] # (Auto) Eos # (Auto) Baso # (Auto) Abs Immat Gran (auto) Absolute Neuts (auto) Absolute Nucleated RBC Nucleated RBC % (auto) Smear Tech's Comments Anion Gap Estim Creat Clear Calc Estimated GFR Random Glucose Calcium Total Bilirubin Direct Bilirubin AST ALT Alkaline Phosphatase Total Protein Albumin Lipase Urine Color YELLOW Urine Appearance HAZY Urine pH 6.0 Ur Specific [place] >= 1.030 H Urine Protein 2+ H Urine Glucose (UA) NEG Urine Ketones >=80 Urine Blood 3+ H Urine Nitrite NEG Ur Leukocyte Esterase NEG Urine RBC 1-4 Urine WBC 15-29 H Ur Squamous Epith Cells 2+ Urine Bacteria 2+ Hyaline Casts 10-14 Urine Mucus 2+ Urine Test NEGATIVE Ethyl Alcohol COVID-19 ([place]) Negative COVID-19 Exitround See Note Assessment and Plan (1) Alcohol withdrawal: Qualifiers: Complication of substance-induced condition: uncomplicated Qualified Code(s): F10.230 - Alcohol dependence with withdrawal, uncomplicated Status: Acute (2) Leukocytosis: Status: Acute (3) Menorrhagia: Status: Acute (4) Hypomagnesemia: Status: Acute (5) Anxiety: Status: Acute (6) Depression: Status: Acute this is a 24-year-old female with past medical history of alcohol abuse who presents to the hospital with alcohol withdrawal and intention to stop drinking # alcohol abuse with alcohol withdrawal - patient reports that she has this is her 2nd admission for the same within the past month - stop drinking 3 days ago, usually drinks about 6 shots of vodka every day to every other day - appears anxious, jittery, has asterixis, otherwise hemodynamically stable Plan: - Started on the phenobarb protocol in the ED, will continue - continue thiamine and folic acid supplement - IV fluid # menorrhagia - patient reports that she has been getting her menstrual cycle Twice a month lasting 5-7 day - Has no symptoms of anemia - hemoglobin stable within normal range plan - will obtain pelvic ultrasound # leukocytosis - most likely reactive - UA negative, no evidence of infection Plan: - IV fluid - follow CBC # history of anxiety and depression - will continue clonidine, Lexapro, and will add hydroxyzine for anxiety DVT prophylaxis: Lovenox
[2019-12-27 05:08] LABS: Basophils Absolute Auto 0.1 X10*3/uL (0.0-0.2); Basophils Percent Auto 0.6 % (0-2); Eosinophils Percent Auto 0.1 % (0-4); Hematocrit 39.5 % (37-47); Hemoglobin 13.2 g/dl (12.0-16.0); Imm Gran Abs Auto 0.04 X10*3/uL (0.00-0.03); Imm Gran Pct Auto 0.4 % (0.0-0.4); Lymphocytes Absolute Auto 0.9 X10*3/uL (1.2-4.9); Lymphocytes Percent Auto 9.2 % (20-40); Mean Corpuscular HGB Conc 33.4 g/dl (31.0-35.0); Mean Corpuscular Hemoglobin 33.1 pg (27.0-33.0); Mean Platelet Volume 9.5 fL (9.4-12.3); Monocytes Absolute Auto 0.4 X10*3/uL (0.1-1.2); Monocytes Percent Auto 4.3 % (2-11); Neutrophils Absolute Auto 8.2 X10*3/uL (2.0-8.3); Neutrophils Percent Auto 85.4 % (45-73); Platelet Count 169 X10*3/uL (160-400); Red Blood Count 3.99 X10*6/uL (4.20-5.50); Red Cell Distribution Width 12.3 % (11.0-16.0); White Blood Count 9.6 X10*3/uL (4.8-10.8)
[2019-12-27] MEDS: Enoxaparin Sodium 40 MG/0.4 ML SYRINGE SUBCUT (05:33)
[2019-12-27 05:44] LABS: Anion Gap 19 (12-20); Blood Urea Nitrogen 4 mg/dL (9-16); Calcium 7.6 mg/dL (8.4-10.2); Carbon Dioxide 16 mmol/L (22-29); Chloride 102 mmol/L (96-108); Creatinine Clr Calc Pharmacy 129.9; Estimated Glomerular Filt Rate > 60; Glucose Random 85 mg/dL (60-115); Potassium 3.3 mmol/l (3.3-5.1); Sodium 134 mmol/L (135-145)
[2019-12-27 07:31] VITALS: BP 157/86; PULSE 99; RESP 18; TEMP 36.2; O2SAT 98
[2019-12-27 07:51] LABS: Magnesium 1.4 mg/dL (1.6-2.6)
--- NOTE | 2019-12-27 08:10 | HO.PM.IMPN ---
Subjective Subjective Date of Service: 12/27/19 Interval History: feeling better, no feeling of withdrawl, wants to eat Cardiovascular Cardiovascular: Reports no additional cardiovascular complaints Respiratory Respiratory: Reports no additional respiratory complaints Physical Exam Vital Signs: Vital Signs: Last Vital Signs Temp 97.2 F 12/27/19 07:31 Pulse 99 12/27/19 07:31 Resp 18 12/27/19 07:31 BP 157/86 H 12/27/19 07:31 Pulse Ox 98 12/27/19 07:31 Body Mass Index 33.3 General: AO X 3, no acute distress Resp: CTA bilateral CVS: S1,S2,RRR GI: soft, non tender, non distended Neuro: motor grossly intact Psych: appropriate affect Objective Data Current Medications Generic Name Dose Route Start Last Admin Trade Name Freq PRN Reason Stop Dose Admin Acetaminophen 650 mg 12/27/19 01:32 Acetaminophen 325 Mg Tablet PO Q6H PRN Pain, Mild (Pain Scale 1-3) Clonidine HCl 0.1 mg 12/27/19 01:32 Clonidine Hcl 0.1 Mg Tablet PO BID PRN Anxiety Protocol Enoxaparin Sodium 40 mg 12/27/19 06:00 12/27/19 05:33 Enoxaparin Sodium 40 Mg/0.4 Ml Syringe SUBCUT 40 mg Q24H ESSIE Administration Escitalopram Oxalate 20 mg 12/27/19 21:00 Escitalopram Oxalate 20 Mg Tablet PO BEDTIME ESSIE Folic Acid 1 mg 12/27/19 09:00 Folic Acid 1 Mg Tablet PO DAILY ESSIE Hydroxyzine HCl 25 mg 12/27/19 01:32 12/27/19 03:21 Hydroxyzine Hcl 25 Mg Tablet PO 25 mg Q6H PRN Administration anxiety/restlessness Magnesium Oxide 800 mg 12/27/19 08:07 Magnesium Oxide 400 Mg Tablet PO 12/27/19 08:08 ONCE ONE Medication 1 each 12/27/19 09:00 No Benzodiazepines MISCELLANE DAILY ESSIE Ondansetron HCl 4 mg 12/27/19 01:32 Ondansetron Hcl 4 Mg/2 Ml Vial IVPUSH Q8H PRN Nausea and Vomiting Phenobarbital 45 mg 12/27/19 09:00 Phenobarbital 15 Mg Tablet PO 12/28/19 21:01 BID ESSIE Phenobarbital 30 mg 12/29/19 09:00 Phenobarbital 30 Mg Tablet PO 11/14/20 21:01 BID ESSIE Phenobarbital 15 mg 12/31/19 09:00 Phenobarbital 15 Mg Tablet PO 01/01/20 09:01 DAILY ESSIE Sodium Chloride 3 ml 12/27/19 01:32 12/27/19 02:21 0.9 % Sodium Chloride Flush 3 Ml Syringe IVFLUSH 3 ml QSHIFT ESSIE Administration Thiamine HCl 100 mg 12/27/19 09:00 Thiamine Hcl 100 Mg Tablet PO DAILY [facility] Labs CBC & Chem 7: 12/27/19 04:38 12/27/19 04:38 Assessment and Plan (1) Alcohol withdrawal: Status: Acute (2) Hypomagnesemia: Status: Acute (3) Menorrhagia: Status: Acute Assessment and Plan: 24F presented with N/v alcohol dependence with withdrawl and fatty alcoholic liver withdrawl improved after phenobarb abstinence encouraged N/V improved, plan for solid food challenge hypomagnesemia replace menorrhagia/irregular periods not anemic only 2 months , would hold of on US for now and follow up with [employer] as outpatient
[2019-12-27] MEDS: Acetaminophen 325 MG TABLET 650 MG PO (08:40)
[2019-12-27] MEDS: Magnesium Oxide 400 MG TABLET 800 MG PO (08:41)
[2019-12-27] MEDS: Folic Acid 1 MG TABLET PO (08:41)
[2019-12-27] MEDS: PHENobarbitaL 15 MG TABLET 45 MG PO (08:41)
[2019-12-27] MEDS: Thiamine HCL 100 MG TABLET PO (08:41)
--- NOTE | 2019-12-27 08:56 | MHC.CM.PN ---
MESSAGE LEFT FOR SHADY/GIANFRANCO BARRERA FOOD PRESERVATION SCIENTIST, LEANDRA @ [phone] TO CALL THIS MANAGER [facility] BACK. CASE TO BE DISCUSSED PRIOR TO FILING 51A, PATIENT IS REPORTED TO BE ACTIVE WITH THE DEPARTMENT SINCE 2018.
--- NOTE | 2019-12-27 09:18 | MHC.CM.PN ---
PATIENT REPORTS BEING INDEPENDENT WITH ALL OF HER ADLS, INCLUDING WORK. NO DME OR VNA SERVICES. SHE WAS DROPPED OFF HERE, AND CAN ARRANGE FOR TRANSPORT HOME. SHE REPORTS FEELING BETTER AND HOPES TO DC HOME TODAY. RN STATES THAT PATIENT IS INTERESTED IN A CARE TEAM CONSULT FOR CONTINUED SOBRIETY PHYSICIAN MADE AWARE.
[2019-12-27] MEDS: Omeprazole 40 MG CAPSULE.DR PO (09:44)
--- NOTE | 2019-12-27 10:14 | MHC.CARE ---
Recovery Support note: Patient is a 24 year old Scottish speaking female who is known to this ghost writer from a previous consultation. Patient reports the last time she discharged from the hospital she was able to maintain sobriety for a couple of days but that she relapsed when she started to feel depressed due to certain things not working out in her life. Patient reports that she has too many responsibilities to go back to drinking and that she is motivated to get treatment. Patient reports DCF is requesting she completes a PHP program. Patient states that due to her responsibilities, she is unsure if she would be able to manage the time commitment of PHP. Discussed IOP with patient, which is a half day program as opposed to the full day PHP. Patient is interested in the evening IOP at [facility] and reports she will speak with DCF to see if this program will suffice. This ghost writer also discussed virtual AA meetings with patient and provided patient with information on how to get connected with this support. Patient reports she already has a therapist and has attended one session and found it helpful. Discussed case with patient's RN, Tami.
[2019-12-27 11:47] VITALS: BP 147/87; PULSE 93; RESP 19; TEMP 36.2; O2SAT 99
--- NOTE | 2019-12-27 12:41 | P.DS_ITS ---
DS: Providers Provider Date of admission: 12/26/19 23:51 Primary care physician: Keesha Rodriguez NP Consults: 12/27/19 09:25 Consult to Care Team Stat Comment: Reason for consultation: ETOH; REQUESTING CONSULT DS: Diagnosis Discharge Diagnosis (1) Alcohol withdrawal: Status: Acute (2) Hypomagnesemia: Status: Acute (3) Menorrhagia: Status: Acute DS: Medications Discharge Medications Home Medications: Home Medications Medication Instructions Recorded Confirmed clonidine HCl 0.1 mg PO BID PRN 12/07/19 12/26/19 escitalopram oxalate [Lexapro] 20 mg PO BEDTIME 12/07/19 12/26/19 Previous Rx's Medication Instructions Recorded folic acid 1 mg PO DAILY #30 tab 12/09/19 thiamine HCl (vitamin B1) 100 mg PO DAILY #30 tab 12/09/19 ondansetron HCl [Zofran] 4 mg PO Q8H PRN #20 tab 12/27/19 DS: Summary Hospital Course Hospital Course: patient was admitted for alcohol dependence with withdrawal, hypomagnesemia, nausea and vomiting. She was also noted to have elevated LFTs consistent with alcoholic fatty liver/mild alcoholic hepatitis. patient was given phenobarbital, antiemetics, IV fluids. Symptoms resolved. She is no longer in withdrawal and is able to tolerate solid diet. She will be discharged home with Zofran. She was given counseling on alcohol cessation. Patient was also complaining of abnormal menstruation, however, she is only 2 months . She is instructed to monitor this and to follow-up with her OBGYN. Time Spent with Patient Time attestation: Total time spent providing and/or coordinating discharge services: Physical Exam Vital Signs: Vital Signs: Last Vital Signs Temp 97.2 F 12/27/19 11:47 Pulse 93 12/27/19 11:47 Resp 19 12/27/19 11:47 BP 147/87 H 12/27/19 11:47 Pulse Ox 99 12/27/19 11:47 Body Mass Index 33.3 General: AO X 3, no acute distress Resp: CTA bilateral CVS: S1,S2,RRR GI: soft, non tender, non distended Neuro: motor grossly intact Psych: appropriate affect DS: Data Data Completed and Pending Completed studies during hospitalization [Text1]: Procedures Detoxification Services for Substance Abuse Treatment (12/07/19) Labs on day of discharge: 12/26/19 20:24 Consult Rx EtOH Phenob Dosing 8 each MISCELLANE ONCE ONE 12/26/19 20:39 Famotidine/PF [Pepcid/PF] 20 mg IVPUSH ONCE ONE ondansetron HCL [Zofran] 4 mg IVPUSH ONCE ONE 12/26/19 20:41 Basic Metabolic Panel Stat Complete Blood Count Auto Diff Stat Ethanol Stat Lipase Stat Liver Panel Stat SLIDE REVIEW Stat 12/26/19 20:45 0.9 % Sodium Chloride [Ns] 1,000 ml Folic Acid 1 mg Thiamine HCL 100 mg MVI, Adult [Infuvite Adult] 10 ml IV 999 mls/hr 0.9 % Sodium Chloride [Ns] 500 ml IV 1,000 mls/hr PHENobarbitaL sodium 183 mg IM ONCE ONE 12/26/19 21:00 Famotidine/PF [Pepcid/PF] 20 mg IVPUSH ONCE ONE ondansetron HCL [Zofran] 4 mg IVPUSH ONCE ONE 12/26/19 22:50 COVID-19 ID NOW ([place]) Stat Ur Preg Test Stat 12/26/19 23:32 Acetaminophen [Tylenol] 650 mg PO ONCE ONE ondansetron HCL [Zofran] 4 mg IVPUSH ONCE ONE 12/26/19 23:34 Famotidine/PF [Pepcid/PF] 20 mg IVPUSH ONCE ONE 12/26/19 23:45 0.9 % Sodium Chloride [Ns] 500 ml IV 1,000 mls/hr Transfer Order Routine 12/27/19 01:00 PHENobarbitaL sodium 137 mg IM 0100,0400 12/27/19 04:38 Basic Metabolic Panel Routine Complete Blood Count Auto Diff Routine 12/27/19 06:11 Magnesium Routine 12/27/19 08:07 Magnesium Oxide [Mag-Ox] 800 mg PO ONCE ONE 12/27/19 09:15 Omeprazole [PriLOSEC] 40 mg PO ONCE ONE Laboratory Last Values WBC 9.6 X10*3/uL (4.8-10.8) 12/27/19 04:38 RBC 3.99 X10*6/uL (4.20-5.50) L 12/27/19 04:38 Hgb 13.2 g/dl (12.0-16.0) 12/27/19 04:38 Hct 39.5 % (37-47) 12/27/19 04:38 MCV 99.0 fL (80-98) H 12/27/19 04:38 MCH 33.1 pg (27.0-33.0) H 12/27/19 04:38 MCHC 33.4 g/dl (31.0-35.0) 12/27/19 04:38 RDW 12.3 % (11.0-16.0) 12/27/19 04:38 Plt Count 169 X10*3/uL (160-400) 12/27/19 04:38 MPV 9.5 fL (9.4-12.3) 12/27/19 04:38 Immature Gran % (Auto) 0.4 % (0.0-0.4) 12/27/19 04:38 Neut % (Auto) 85.4 % (45-73) H 12/27/19 04:38 Lymph % (Auto) 9.2 % (20-40) L 12/27/19 04:38 [place] % (Auto) 4.3 % (2-11) 12/27/19 04:38 Eos % (Auto) 0.1 % (0-4) 12/27/19 04:38 Baso % (Auto) 0.6 % (0-2) 12/27/19 04:38 Lymph # (Auto) 0.9 X10*3/uL (1.2-4.9) L 12/27/19 04:38 [place] # (Auto) 0.4 X10*3/uL (0.1-1.2) 12/27/19 04:38 Eos # (Auto) 0.0 X10*3/uL (0.0-0.4) 12/27/19 04:38 Baso # (Auto) 0.1 X10*3/uL (0.0-0.2) 12/27/19 04:38 Abs Immat Gran (auto) 0.04 X10*3/uL (0.00-0.03) H 12/27/19 04:38 Absolute Neuts (auto) 8.2 X10*3/uL (2.0-8.3) 12/27/19 04:38 Absolute Nucleated RBC 0.000 X10*3/uL (0.0-0.012) 12/27/19 04:38 Nucleated RBC % (auto) 0.0 /100WBC (0.0-0.2) 12/27/19 04:38 Smear Tech's Comments VERIFIED 12/26/19 20:41 Sodium 134 mmol/L (135-145) L 12/27/19 04:38 Potassium 3.3 mmol/l (3.3-5.1) D 12/27/19 04:38 Chloride 102 mmol/L (96-108) 12/27/19 04:38 Carbon Dioxide 16 mmol/L (22-29) L 12/27/19 04:38 Anion Gap 19 (12-20) 12/27/19 04:38 BUN 4 mg/dL (9-16) L 12/27/19 04:38 Creatinine 0.73 mg/dL (0.5-1.4) 12/27/19 04:38 Estim Creat Clear Calc 129.9 12/27/19 04:38 Estimated GFR > 60 12/27/19 04:38 Random Glucose 85 mg/dL (60-115) 12/27/19 04:38 Calcium 7.6 mg/dL (8.4-10.2) L D 12/27/19 04:38 Magnesium 1.4 mg/dL (1.6-2.6) L* 12/27/19 06:11 Total Bilirubin 2.3 mg/dL (0.0-1.0) H 12/26/19 20:41 Direct Bilirubin 1.2 mg/dL (0.0-0.5) H 12/26/19 20:41 AST 146 U/L (5-31) H 12/26/19 20:41 ALT 75 U/L (0-31) H 12/26/19 20:41 Alkaline Phosphatase 72 U/L (39-117) 12/26/19 20:41 Total Protein 7.9 g/dL (6.5-8.0) D 12/26/19 20:41 Albumin 4.8 g/dL (3.5-5.0) 12/26/19 20:41 Lipase 32 U/L (8-78) 12/26/19 20:41 Urine Color YELLOW 12/26/19 22:50 Urine Appearance HAZY 12/26/19 22:50 Urine pH 6.0 (5.0-8.0) 12/26/19 22:50 Ur Specific [place] >= 1.030 (1.005-1.025) H 12/26/19 22:50 Urine Protein 2+ MG/DL (NEG-TRACE) H 12/26/19 22:50 Urine Glucose (UA) NEG MG/DL (NEG) 12/26/19 22:50 Urine Ketones >=80 MG/DL (NEG) 12/26/19 22:50 Urine Blood 3+ (NEG) H 12/26/19 22:50 Urine Nitrite NEG (NEG) 12/26/19 22:50 Ur Leukocyte Esterase NEG (NEG) 12/26/19 22:50 Urine RBC 1-4 /HPF (0) 12/26/19 22:50 Urine WBC 15-29 /HPF (0-4) H 12/26/19 22:50 Ur Squamous Epith Cells 2+ /LPF 12/26/19 22:50 Urine Bacteria 2+ /LPF 12/26/19 22:50 Hyaline Casts 10-14 /LPF 12/26/19 22:50 Urine Mucus 2+ /LPF 12/26/19 22:50 Urine Test NEGATIVE (NEGATIVE) 12/26/19 22:50 Ethyl Alcohol < 10 mg/dL 12/26/19 20:41 COVID-19 ([place]) Negative (Negative) 12/26/19 22:50 COVID-19 Clin Com See Note 12/26/19 22:50 Discharge Plan Discharge Patient Disposition: Home, Self-Care Referrals: Keesha Rodriguez STRAP MAKING MACHINE OPERATOR [Primary Care Provider] - 1 Week (Please call and schedule a follow up appointment.) Discharge Medications: New ondansetron HCl [Zofran] 4 mg tablet 4 mg PO Q8H PRN (Reason: nausea) Qty: 20 RF: 0 Continued escitalopram oxalate [Lexapro] 20 mg Tablet 20 mg PO BEDTIME RF: 0 clonidine HCl 0.1 mg Tablet 0.1 mg PO BID PRN (Reason: Anxiety) RF: 0 thiamine HCl (vitamin B1) 100 mg Tablet 100 mg PO DAILY Qty: 30 RF: 0 folic acid 1 mg Tablet 1 mg PO DAILY Qty: 30 RF: 0 Discharge Orders: Discharge Order (Routine); Ordered 12/27/19 Ordered By: Terell Smith Activity on Discharge: As tolerated Visit Report Forms: Patient Portal Discharge page Care Plan Goals: recovery Health Concerns: nasuea, abnormal periods Plan of Treatment: zofran as needed, follow up with METAL RIVETING MACHINE OPERATOR
--- NOTE | 2019-12-27 12:48 | MHC.CM.PN ---
PATIENT IS DISCHARGED HOME WITH NO SERVICES. RN AWARE OF PLAN.
== END 2019-12-27 13:26 | disposition home or self-care (01) | DRG 561 ==
LOC: HO.ED 22:27 → HO.S3 12-27 00:08
PROVIDERS: Admitting Provider Internal Medicine; Emergency Provider Emergency Medicine; PCP Nurse Practitioner Family; Visit Provider Internal Medicine
DX: O26.63 Liver and biliary tract disorders in the puerperium (principal); K70.10 Alcoholic hepatitis without ascites; E83.42 Hypomagnesemia; K70.0 Alcoholic fatty liver; O99.315 Alcohol use complicating the puerperium; F10.239 Alcohol dependence with withdrawal, unspecified; O99.345 Other mental disorders complicating the puerperium; N92.1 Excessive and frequent menstruation with irregular cycle; Z20.828 Contact with and (suspected) exposure to other viral communicable diseases; D72.829 Elevated white blood cell count, unspecified; F53.0 Postpartum depression; O90.89 Other complications of the puerperium, not elsewhere classified; O99.285 Endocrine, nutritional and metabolic diseases complicating the puerperium; Z79.899 Other long term (current) drug therapy
CPT/HCPCS: 36415; 80048; 80076; 80320; 81001; 81025; 83690; 83735; 85025; 85027; 87086; 87635; 96365; 96372; 96375; 96376; 99285; J1650; J2405; J2560; J3411

== ENCOUNTER 2020-01-05 09:00 | Outpatient (RCR) | payer OTHER, SELFPAY ==
[2020-01-03 12:23] VITALS: BMI 33.3
--- NOTE | 2020-01-03 12:23 | PC.ADMIT ---
Patient is a 24 year old female who is attending the [facility] on the advise of DCF d/t patient increase in depression secondary to Post- depression, increased anxiety with panic attacks and recent self harming behaviors, last cutting 2 weeks ago. Pt has a hx of punching herself and scratching herself which she stated started one month ago. Pt has been drinking ETOH to cope with how she is feeling. She most recently was hospitalized and treated for acute ETOH withdrawal, hypomagnesemia, and increased LFT's. Pt reports drinking up to 6 shots daily last drink on 12/30/19. Pt stated she attended her first AA group on Wednesday and plans on attending one on . Encouraged pt to continue to attend substance use groups while in the program for more support and to obtain a sponsor. Pt also aware that she will be getting a package sent to her from [facility] which includes information about various online Substance use groups to choose from. Patient's children whom are 6 months and 2 years old are currently staying with their grandparents as pt stated she can not be alone with them in her home per [facility]. Patient stated she is at [facility] as she is, trying to stay away from substance use and get my kids back home . Denied any medical issues. [facility] and pt appears to be taking medications as prescribed. Patient is alert and oriended x4, calm and cooperative. Denied SI, HI, or thoughts to harm herself. Gave verbal permission to email her a copy of her safety plan and agrees to utilize if feeling unsafe.
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
--- NOTE | 2020-01-08 09:35 | PC.NURSE ---
Pt was not present for 9am community meeting and did not call out or contact the clinicians. TW called pt and phone went straight to voicemail. Message left to check in with pt and to make sure she is safe and will be in attendance for Wednesday.
--- NOTE | 2020-01-08 12:14 | PC.ADMIT ---
Pt did not attend the morning meeting. Left message for pt to call back. Did not hear from pt. Attempted to call her emergency contact but could not leave a message due to voicemail not being set up. Will try again.
--- NOTE | 2020-01-08 14:18 | PC.NURSE ---
Spoke with pt's emergency contact who reported she was in detox. Case to close.
== END 2020-01-05 23:55 | disposition admitted as inpatient to this hospital (09) ==
LOC: HO.PHPA 09:00
PROVIDERS: Visit Provider Psychiatry & Neurology Psychiatry
DX: F32.9 Major depressive disorder, single episode, unspecified (principal)
CPT/HCPCS: 90792; 90853

== ENCOUNTER 2020-01-29 10:30 | Outpatient (RCR) | payer OTHER, SELFPAY ==
[2020-01-16 10:50] VITALS: BMI 33.3
--- NOTE | 2020-01-16 11:56 | PC.ADMIT ---
Patient is a 24 year old female who initally started the PHP program recently however left [facility] to attend detox for ETOH withdrawal. Patient intially came to the program on the advise of DCF d/t an increase in depression, self-harming behaviors, and severe ETOH use for the past 7 months. In addition, pt is struggling with depression for the past 7 months. Pt's children are currently staying with their grandparents including her 7 month old baby as patient is not allowed to be alone with her children in her home. Patient is alert and oriented x4. Calm and cooperative. Denied SI at present. Pt has recent hx of self harm reports this started over a month ago, last episode was 3 weeks ago. Reports hx of punching and superficially cutting herself. Patient gave verbal permission to email her a copy of her safety plan and agrees to utilize it if feeling unsafe. Patient also has the crisis number if needed and is aware that she can talk to staff if feeling unsafe. Pt is attending the [facility] program d/t feelings of depression and anxiety and stated she wants to stay sober and is here for her children and DCF. Pt is working towards getting her children back. Stated she has been sober x 1 week and is attending AA 2 x a week and is currently on medication assisted treatment with Naltrexone HCL and has an appointment tomorrow with [facility] for Vivitrol injection. Medications reconciled with patient and patients phamacy. Pt reports taking medication as prescribed however reports she ran out of Risperdal as she forgot the script at detox. Derek Gardner APRN is aware.
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
--- NOTE | 2020-01-23 09:08 | HO.PHPPROGNO ---
Subjective Subjective Date of Service: 01/23/20 Reason For Visit: depression Interim History: Xiomara reports she is sober. Medications are effective. She has decreased her use of prn clonidine. Risperdal assists with sleep, quiets her thoughts, assists with anxiety mgt. Lexapro she believes is working. She is still using Naltrexone and is scheduled for her first Vivitrol injection on 01/25/20. Medication Compliance: Yes Side effects from medications: No Attending Groups: Yes Review of Systems Psychiatric: Reports as per HPI Comments: Reports medication regime is addressing symptoms without breakthrough. Mental Status Exam Mental Status Exam Patient Orientation: Person, Place, Time and Situation Level of Consciousness: Awake, Appropriate and Alert Patient Behavior: Appropriate and Cooperative Mood Description: Calm and Appropriate Affect Description: Calm and Appropriate Patient Cognition Impaired: No Ability to Follow Directions: Excellent Speech Pattern: Clear, Appropriate, Spontaneous Speech and Coherent Memory Description: Intact Hallucinations: None Delusions: Not Present Thought Process: Intact Thought Content: positive for Intact Judgement: Good Diagnostics Vital Signs (24Hr): Body Mass Index 33.3 Assessment & Plan Assessment & Plan (1) Depression: Status: Acute Code(s): F32.9 - Major depressive disorder, single episode, unspecified Assessment and Plan: Continue current regime and PHP plan of care. Certification I certify that partial hospital treatment is medically necessary due to the symptoms and problems resulting from the patient's mental illness and the failure to treat the patient at the partial hospital level of care would likely result in the patient requiring inpatient psychiatric care which could not be prevented at a less intensive level of care. Greater than 50% of the session was spent on counseling and/or coordination of care Discharge Plan Discharge Attending provider: Rome Devries Medications: Continued risperidone [Risperdal] 0.5 mg tablet 0.5 mg PO BEDTIME Qty: 30 RF: 0 No Action escitalopram oxalate [Lexapro] 20 mg Tablet 20 mg PO BEDTIME RF: 0 thiamine HCl (vitamin B1) 100 mg Tablet 100 mg PO DAILY Qty: 30 RF: 0 folic acid 1 mg Tablet 1 mg PO DAILY Qty: 30 RF: 0 clonidine HCl 0.1 mg Tablet 0.1 mg PO TID PRN (Reason: Anxiety) RF: 0 norgestimate-ethinyl estradiol [Tri-Sprintec (28)] 0.18/0.215/0.25 mg-35 mcg (28) Tablet 1 tab PO DAILY RF: 0 ondansetron HCl [Zofran] 4 mg tablet 4 mg PO Q8H PRN (Reason: nausea) Qty: 20 RF: 0 naltrexone 50 mg Tablet 50 mg PO DAILY RF: 0
--- NOTE | 2020-01-24 08:47 | PC.NURSE ---
Pt called out sick today
--- NOTE | 2020-02-12 14:30 | PC.NURSE ---
Pt called the hospital in search of a refill for a medication. I called and spoke with her. She said it's no problem to call her PCP and get the med filled, as she is discharged from [facility]. She said her therapist was in the process of getting her a med management appt at [facility], but that he has fallen ill, delaying the process. She agreed to call her PCP. She sounded bright, and said she is doing well.
== END 2020-01-29 23:55 | disposition home or self-care (01) ==
LOC: HO.PHPA 10:30
PROVIDERS: Visit Provider Psychiatry & Neurology Psychiatry
DX: F32.9 Major depressive disorder, single episode, unspecified (principal); F10.10 Alcohol abuse, uncomplicated
CPT/HCPCS: 90853; 99203; 99213

== ENCOUNTER 2020-02-12 10:38 | Outpatient (REF) | payer MEDICAID, SELFPAY | END 2020-02-12 10:39 | disposition home or self-care (01) | LOC: HO.LAB 10:38 | PROVIDERS: PCP Nurse Practitioner Family; Visit Provider Internal Medicine | DX: Z20.828 Contact with and (suspected) exposure to other viral communicable diseases (principal) | CPT/HCPCS: C9803; U0003 ==

== ENCOUNTER 2020-03-01 13:37 | Inpatient (IN) | payer MEDICAID, SELFPAY ==
[2020-03-01 13:53] VITALS: BP 149/105; PULSE 130; RESP 20; TEMP 36.8; O2SAT 98; BMI 33.3
[2020-03-01 15:15] LABS: Glucose Urine UA NEG (NEG); Leukocyte Esterase Urine NEG (NEG); Nitrite Urine NEG (NEG); Specific Gravity - Urine 1.025 (1.005-1.025); Urine Blood 2+ (NEG); Urine Ketones 5 MG/DL (NEG); Urine Protein 2+ MG/DL (NEG-TRACE)
[2020-03-01 15:44] LABS: Amphetamine Screen Urine Not Detected (Not Detect); Appearance Urine CLEAR; Barbiturates, Urine Not Detected (Not Detect); Benzodiazepines Screen Urine Not Detected (Not Detect); Cannabinoid Screen Urine Not Detected (Not Detect); Cocaine Screen Urine Not Detected (Not Detect); Color Urine YELLOW; Opiate Screen Urine Not Detected (Not Detect); Phencyclidine Screen Urine Not Detected (Not Detect)
[2020-03-01 15:46] LABS: Bacteria Urine TRACE /LPF; Mucus Urine 2+ /LPF; Squamous Epithelial Cell Urine 2+ /LPF
[2020-03-01 15:47] LABS: UPreg QC Valid YES; Urine Pregnancy NEGATIVE (NEGATIVE)
[2020-03-01 17:09] VITALS: BP 146/98; PULSE 127; RESP 22; TEMP 36.3; O2SAT 96
--- NOTE | 2020-03-01 17:31 | ED_ITS ---
HPI - Abdominal Pain General Chief Complaint: Abdominal Pain Stated Complaint: detoxing alcohol Time Seen by Provider: 03/01/20 18:35 Source: patient Mode of arrival: ambulatory Limitations: no limitations History of Present Illness HPI narrative: 25-year-old female with past medical history of depression, anxiety, menorrhagia, and ETOH abuse with withdrawal. She presents with abdominal pain, nausea, vomiting, and requesting detox for alcohol. She has been nauseous and vomiting and very poor p.o. intake over the past 3 days. She only ate an apple over the past 3 days, is unable to keep any fluids down becau se of vomiting. She does report drinking at least 8 nips per day. She is not suicidal at this time, denies homicidal ideation, states to have diffuse abdominal pain but denies chest pain and pressure, palpitations, shortness of breath, dysuria, hematuria, and edema. She is denying auditory and visual hallucinations but states to be withdrawing from alcohol at this time. MD elicited complaint: abdominal pain Onset (ago): day(s) (3) Pain Consistency: constant Location: diffuse Severity: severe Pain scale (0-10): 10 Quality: aching Exacerbating factors: eating, vomiting and movement Relieving factors: nothing Context: history of similar episodes Associated symptoms: nausea, vomiting and anorexia Related Data Patient : No Home Medications Medication Instructions Recorded Confirmed escitalopram oxalate [Lexapro] 20 mg PO BEDTIME 12/07/19 03/01/20 clonidine HCl 0.1 mg PO TID PRN 01/03/20 03/01/20 norgestimate-ethinyl estradiol 1 tab PO DAILY 01/03/20 03/01/20 [Tri-Sprintec (28)] Allergies Allergy/AdvReac Type Severity Reaction Status Date / Time No Known Allergies Allergy Verified 12/07/19 21:16 Review of Systems Review of Systems Constitutional: No Weight loss, No Fever, No Chills, No Night Sweats, No F atigue, No Malaise ENT/Mouth: No Hearing loss, No Ear Pain, No Nasal Congestion, No Sinus Pain, No Hoarseness, No sore throat, No Rhinorrhea, No Swallowing Difficulty Eyes: No Eye Pain, No Swelling, No Redness, No Vision Changes Cardiovascular: No Chest Pain, No SOB, No Dyspnea on Exertion, No Orthopnea, No Edema, No Palpitations Respiratory: No Cough, No Sputum, No Wheezing, No Smoke Exposure, No Dyspnea Gastrointestinal: Positive Nausea, Positive Vomiting, no Diarrhea, positive abdominal Pain, No Hematochezia, No Melena Genitourinary: no irregular bleeding, No Dysuria, No Urinary Frequency, No Hematuria, No Urinary Incontinence, No Urgency, No Flank Pain, No Urinary Flow Changes, No Hesitancy Musculoskeletal: No joint pain, No Myalgias, No Joint Swelling Skin: No Skin Lesions, No rash Neuro: No Weakness, No Numbness, No Paresthesias, No Loss of Consciousness, No Dizziness, No Headache Psych: Positive Anxiety, positive Depression, positive ETOH abuse and withdrawal, No SI/HI/AH/VH Heme/Lymph: No Bruising, No Bleeding,No Lymphadenopathy Endocrine: No Polyuria, No Polydipsia, No Temperature Intolerance Yes all other systems are reviewed and are negative Physical Exam Vital Signs: Vital Signs: Last Vital Signs Temp 99.1 F 03/01/20 23:07 Pulse 114 H 03/02/20 00:30 Resp 16 03/01/20 23:07 BP 129/80 03/02/20 00:30 Pulse Ox 100 03/01/20 23:07 Body Mass Index 33.3 Appearance: Alert. Oriented X3. Moderate distress. Eyes: Pupils equal, round and reactive to light. ENT: Pharynx normal. Neck: Normal inspection. Neck supple. CVS: Tachycardic heart rate and rhythm. Pulses equal to all extremities Respiratory: No respiratory distress. Breath sounds normal. Abdomen: Soft and diffusely tender palpation. Skin: Skin warm and dry. Normal skin color. Normal skin turgor. Extremities: No lower extremity edema. Neuro: No motor deficit. No sensory deficit. Hands and mouth are tremulous consistent with EtOH withdrawal. Course Course Course Narrative: 25-year-old female presents for nausea, vomiting, anorexia, and alcohol abuse requesting detox. Patient does have diffuse abdominal pain. Plan is for CBC, Chem 7, urinalysis, CT scan of abdomen. Will give Dilaudid for pain management as her presentation is highly suspicious for pancreatitis. Give Ativan 0.5 mg for withdrawal symptoms. Banana bag and 1 L of normal saline. CT scan negative for acute findings, AST 146, ALT 104, at this time we will start phenobarbital protocol. Blood alcohol level 288. Discussion with hospitalist regarding admission for EtOH withdrawal at 8:54 p.m.. Consultations Consultation #1: tyler Time: 20:54 MDM - Abdominal Pain Differential Diagnosis Differential diagnosis: Likely abdominal pain, acute appendicitis, bowel perforation, calculus of kidney, diverticulitis, gastroenteritis, gastritis and pancreatitis Medical Records Attestation: I reviewed the patient's medical records. Lab Data Attestation: I reviewed the patient's lab results. Result diagrams: 03/01/20 17:59 03/01/20 19:33 Labs: Lab Results 03/01/20 03/01/20 03/01/20 Range/Units 14:58 14:58 17:59 WBC 5.7 (4.8-10.8) X10*3/uL RBC 4.87 D (4.20-5.50) X10*6/uL Hgb 16.1 H D (12.0-16.0) g/dl Hct 46.8 (37-47) % MCV 96.1 (80-98) fL MCH 33.1 H (27.0-33.0) pg MCHC 34.4 (31.0-35.0) g/dl RDW 13.2 (11.0-16.0) % Plt Count 208 (160-400) X10*3/uL MPV 8.8 L (9.4-12.3) fL Immature Gran % (Auto) 0.2 (0.0-0.4) % Neut % (Auto) 57.3 (45-73) % Lymph % (Auto) 32.1 (20-40) % [place] % (Auto) 9.1 (2-11) % Eos % (Auto) 0.3 (0-4) % Baso % (Auto) 1.0 (0-2) % Lymph # (Auto) 1.8 (1.2-4.9) X10*3/uL [place] # (Auto) 0.5 (0.1-1.2) X10*3/uL Eos # (Auto) 0.0 (0.0-0.4) X10*3/uL Baso # (Auto) 0.1 (0.0-0.2) X10*3/uL Abs Immat Gran (auto) 0.01 (0.00-0.03) X10*3/uL Absolute Neuts (auto) 3.3 (2.0-8.3) X10*3/uL Absolute Nucleated RBC 0.000 (0.0-0.012) X10*3/uL Nucleated RBC % (auto) 0.0 (0.0-0.2) /100WBC PT (10.8-13.0) SEC INR (0.9-1.1) APTT (24.1-38.0) SEC Sodium Potassium Chloride Carbon Dioxide Anion Gap BUN (9-16) mg/dL Creatinine (0.5-1.4) mg/dL Estim Creat Clear Calc Estimated GFR Random Glucose (60-115) mg/dL Calcium (8.4-10.2) mg/dL Magnesium (1.6-2.6) mg/dL Total Bilirubin Direct Bilirubin (0.0-0.5) mg/dL AST ALT (0-31) U/L Alkaline Phosphatase (39-117) U/L Troponin I High Sens (<3.5-17.0) ng/L Total Protein (6.5-8.0) g/dL Albumin (3.5-5.0) g/dL Lipase (8-78) U/L Urine Color YELLOW Urine Appearance CLEAR Urine pH 6.0 (5.0-8.0) Ur Specific Ransom 1.025 (1.005-1.025) Urine Protein 2+ H (NEG-TRACE) MG/DL Urine Glucose (UA) NEG (NEG) MG/DL Urine Ketones 5 (NEG) MG/DL Urine Blood 2+ H (NEG) Urine Nitrite NEG (NEG) Ur Leukocyte Esterase NEG (NEG) Urine RBC 5-9 H (0) /HPF Urine WBC 1-4 (0-4) /HPF Ur Squamous Epith Cells 2+ /LPF Urine Bacteria TRACE /LPF Urine Mucus 2+ /LPF Urine Test NEGATIVE (NEGATIVE) Urine Opiates Screen Not Detected (Not Detect) Ur Barbiturates Screen Not Detected (Not Detect) Ur Phencyclidine Scrn Not Detected (Not Detect) Ur Amphetamines Screen Not Detected (Not Detect) U Benzodiazepines Scrn Not Detected (Not Detect) Urine Cocaine Screen Not Detected (Not Detect) U Marijuana (THC) Screen Not Detected (Not Detect) Ethyl Alcohol mg/dL COVID-19 ([place]) (Negative) COVID-19 Clin Com 03/01/20 03/01/20 03/01/20 Range/Units 17:59 17:59 17:59 WBC (4.8-10.8) X10*3/uL RBC (4.20-5.50) X10*6/uL Hgb (12.0-16.0) g/dl Hct (37-47) % MCV (80-98) fL MCH (27.0-33.0) pg MCHC (31.0-35.0) g/dl RDW (11.0-16.0) % Plt Count (160-400) X10*3/uL MPV (9.4-12.3) fL Immature Gran % (Auto) (0.0-0.4) % Neut % (Auto) (45-73) % Lymph % (Auto) (20-40) % [place] % (Auto) (2-11) % Eos % (Auto) (0-4) % Baso % (Auto) (0-2) % Lymph # (Auto) (1.2-4.9) X10*3/uL [place] # (Auto) (0.1-1.2) X10*3/uL Eos # (Auto) (0.0-0.4) X10*3/uL Baso # (Auto) (0.0-0.2) X10*3/uL Abs Immat Gran (auto) (0.00-0.03) X10*3/uL Absolute Neuts (auto) (2.0-8.3) X10*3/uL Absolute Nucleated RBC (0.0-0.012) X10*3/uL Nucleated RBC % (auto) (0.0-0.2) /100WBC PT 13.5 H (10.8-13.0) SEC INR 1.1 (0.9-1.1) APTT 32.3 (24.1-38.0) SEC Sodium TNP Potassium TNP Chloride TNP Carbon Dioxide TNP Anion Gap TNP BUN 8 L D (9-16) mg/dL Creatinine 0.72 (0.5-1.4) mg/dL Estim Creat Clear Calc 130.6 Estimated GFR > 60 Random Glucose 99 (60-115) mg/dL Calcium 8.5 D (8.4-10.2) mg/dL Magnesium 2.2 (1.6-2.6) mg/dL Total Bilirubin TNP Direct Bilirubin 0.3 (0.0-0.5) mg/dL AST TNP ALT 123 H (0-31) U/L Alkaline Phosphatase 79 (39-117) U/L Troponin I High Sens < 3.5 (<3.5-17.0) ng/L Total Protein 8.2 H (6.5-8.0) g/dL Albumin 4.6 (3.5-5.0) g/dL Lipase 54 (8-78) U/L Urine Color Urine Appearance Urine pH (5.0-8.0) Ur Specific Ransom (1.005-1.025) Urine Protein (NEG-TRACE) MG/DL Urine Glucose (UA) (NEG) MG/DL Urine Ketones (NEG) MG/DL Urine Blood (NEG) Urine Nitrite (NEG) Ur Leukocyte Esterase (NEG) Urine RBC (0) /HPF Urine WBC (0-4) /HPF Ur Squamous Epith Cells /LPF Urine Bacteria /LPF Urine Mucus /LPF Urine Test (NEGATIVE) Urine Opiates Screen (Not Detect) Ur Barbiturates Screen (Not Detect) Ur Phencyclidine Scrn (Not Detect) Ur Amphetamines Screen (Not Detect) U Benzodiazepines Scrn (Not Detect) Urine Cocaine Screen (Not Detect) U Marijuana (THC) Screen (Not Detect) Ethyl Alcohol mg/dL COVID-19 ([place]) (Negative) COVID-19 Clin Com 03/01/20 03/01/20 03/01/20 Range/Units 17:59 19:33 19:33 WBC (4.8-10.8) X10*3/uL RBC (4.20-5.50) X10*6/uL Hgb (12.0-16.0) g/dl Hct (37-47) % MCV (80-98) fL MCH (27.0-33.0) pg MCHC (31.0-35.0) g/dl RDW (11.0-16.0) % Plt Count (160-400) X10*3/uL MPV (9.4-12.3) fL Immature Gran % (Auto) (0.0-0.4) % Neut % (Auto) (45-73) % Lymph % (Auto) (20-40) % [place] % (Auto) (2-11) % Eos % (Auto) (0-4) % Baso % (Auto) (0-2) % Lymph # (Auto) (1.2-4.9) X10*3/uL [place] # (Auto) (0.1-1.2) X10*3/uL Eos # (Auto) (0.0-0.4) X10*3/uL Baso # (Auto) (0.0-0.2) X10*3/uL Abs Immat Gran (auto) (0.00-0.03) X10*3/uL Absolute Neuts (auto) (2.0-8.3) X10*3/uL Absolute Nucleated RBC (0.0-0.012) X10*3/uL Nucleated RBC % (auto) (0.0-0.2) /100WBC PT (10.8-13.0) SEC INR (0.9-1.1) APTT (24.1-38.0) SEC Sodium Cancelled 142 Potassium Cancelled 3.5 Chloride Cancelled 104 Carbon Dioxide Cancelled 22 Anion Gap Cancelled 20 BUN Cancelled 8 L (9-16) mg/dL Creatinine Cancelled 0.58 (0.5-1.4) mg/dL Estim Creat Clear Calc Cancelled 162.1 Estimated GFR Cancelled > 60 Random Glucose Cancelled 108 (60-115) mg/dL Calcium Cancelled 7.5 L D (8.4-10.2) mg/dL Magnesium (1.6-2.6) mg/dL Total Bilirubin 0.9 Direct Bilirubin 0.5 (0.0-0.5) mg/dL AST 146 H ALT 104 H (0-31) U/L Alkaline Phosphatase 71 (39-117) U/L Troponin I High Sens (<3.5-17.0) ng/L Total Protein 6.4 L D (6.5-8.0) g/dL Albumin 4.0 (3.5-5.0) g/dL Lipase (8-78) U/L Urine Color Urine Appearance Urine pH (5.0-8.0) Ur Specific Ransom (1.005-1.025) Urine Protein (NEG-TRACE) MG/DL Urine Glucose (UA) (NEG) MG/DL Urine Ketones (NEG) MG/DL Urine Blood (NEG) Urine Nitrite (NEG) Ur Leukocyte Esterase (NEG) Urine RBC (0) /HPF Urine WBC (0-4) /HPF Ur Squamous Epith Cells /LPF Urine Bacteria /LPF Urine Mucus /LPF Urine Test (NEGATIVE) Urine Opiates Screen (Not Detect) Ur Barbiturates Screen (Not Detect) Ur Phencyclidine Scrn (Not Detect) Ur Amphetamines Screen (Not Detect) U Benzodiazepines Scrn (Not Detect) Urine Cocaine Screen (Not Detect) U Marijuana (THC) Screen (Not Detect) Ethyl Alcohol 288 mg/dL COVID-19 ([place]) (Negative) COVID-19 Clin Com 03/01/20 Range/Units 21:53 WBC (4.8-10.8) X10*3/uL RBC (4.20-5.50) X10*6/uL Hgb (12.0-16.0) g/dl Hct (37-47) % MCV (80-98) fL MCH (27.0-33.0) pg MCHC (31.0-35.0) g/dl RDW (11.0-16.0) % Plt Count (160-400) X10*3/uL MPV (9.4-12.3) fL Immature Gran % (Auto) (0.0-0.4) % Neut % (Auto) (45-73) % Lymph % (Auto) (20-40) % [place] % (Auto) (2-11) % Eos % (Auto) (0-4) % Baso % (Auto) (0-2) % Lymph # (Auto) (1.2-4.9) X10*3/uL [place] # (Auto) (0.1-1.2) X10*3/uL Eos # (Auto) (0.0-0.4) X10*3/uL Baso # (Auto) (0.0-0.2) X10*3/uL Abs Immat Gran (auto) (0.00-0.03) X10*3/uL Absolute Neuts (auto) (2.0-8.3) X10*3/uL Absolute Nucleated RBC (0.0-0.012) X10*3/uL Nucleated RBC % (auto) (0.0-0.2) /100WBC PT (10.8-13.0) SEC INR (0.9-1.1) APTT (24.1-38.0) SEC Sodium Potassium Chloride Carbon Dioxide Anion Gap BUN (9-16) mg/dL Creatinine (0.5-1.4) mg/dL Estim Creat Clear Calc Estimated GFR Random Glucose (60-115) mg/dL Calcium (8.4-10.2) mg/dL Magnesium (1.6-2.6) mg/dL Total Bilirubin Direct Bilirubin (0.0-0.5) mg/dL AST ALT (0-31) U/L Alkaline Phosphatase (39-117) U/L Troponin I High Sens (<3.5-17.0) ng/L Total Protein (6.5-8.0) g/dL Albumin (3.5-5.0) g/dL Lipase (8-78) U/L Urine Color Urine Appearance Urine pH (5.0-8.0) Ur Specific Ransom (1.005-1.025) Urine Protein (NEG-TRACE) MG/DL Urine Glucose (UA) (NEG) MG/DL Urine Ketones (NEG) MG/DL Urine Blood (NEG) Urine Nitrite (NEG) Ur Leukocyte Esterase (NEG) Urine RBC (0) /HPF Urine WBC (0-4) /HPF Ur Squamous Epith Cells /LPF Urine Bacteria /LPF Urine Mucus /LPF Urine Test (NEGATIVE) Urine Opiates Screen (Not Detect) Ur Barbiturates Screen (Not Detect) Ur Phencyclidine Scrn (Not Detect) Ur Amphetamines Screen (Not Detect) U Benzodiazepines Scrn (Not Detect) Urine Cocaine Screen (Not Detect) U Marijuana (THC) Screen (Not Detect) Ethyl Alcohol mg/dL COVID-19 ([place]) Negative (Negative) COVID-19 Clin Com See Note Imaging Data CT scan - abdomen: Attestation: I personally reviewed and interpreted this imaging study as follows: Radiologist's impression: EXAMINATION: CT ABDOMEN AND PELVIS WITHOUT CONTRAST CLINICAL INFORMATION: Nausea and vomiting with suspected pancreatitis COMPARISON: CT abdomen pelvis 11/07/2019 TECHNIQUE: Multidetector volumetric imaging was performed from the superior aspect of the liver through the pubic symphysis. Sagittal and coronal reformatted images were obtained on the technologist's workstation. This CT examination was performed using dose optimization techniques as appropriate, variously including the following: *Automated exposure control *Adjustment of mA and/or kV according to patient size (this includes techniques or standardized protocols for targeted exams where dose is matched to indication/reason for exam; i.e. extremities or head) *Use of iterative reconstruction technique DLP: 769 mGy-cm FINDINGS: LUNG BASES: The visualized lung bases are unremarkable. LIVER, GALLBLADDER, AND BILIARY TREE: The liver is enlarged measuring 20 cm in length and demonstrates marked hepatic steatosis. No focal liver lesion or bile duct dilatation is seen. The lesions seen previously is not identified on this study and may be a hemangioma is now isointense. The gallbladder is unremarkable with no evidence of radiopaque gallstones, gallbladder wall thickening, or obvious pericholecystic inflammatory changes. PANCREAS: Unremarkable. SPLEEN: Unremarkable. ADRENAL GLANDS: Unremarkable. KIDNEYS AND URETERS: The kidneys are normal in size, shape, and attenuation. No hydronephrosis, hydroureter, or calculi seen. No perinephric stranding. BLADDER: Unremarkable. GASTROINTESTINAL TRACT: The small and large bowel are unremarkable. The appendix is unremarkable. ABDOMINAL WALL: No significant hernia is appreciated. LYMPH NODES: Normal. VASCULAR: Unremarkable. PELVIC VISCERA: Unremarkable. OSSEOUS STRUCTURES: Unremarkable. CT/CT abdomen pelvis wo con IMPRESSION: Enlarged fatty liver. The pancreas appears normal and there is no evidence to suggest pancreatitis Chest x-ray: Attestation: I personally reviewed and interpreted this imaging study as follows: Radiologist's impression: EXAMINATION: XR CHEST CLINICAL INFORMATION: Alcohol withdrawal. Vomiting COMPARISON: None TECHNIQUE: Frontal view of the chest was obtained. FINDINGS: No significant abnormality is noted involving the heart, lungs, mediastinum, bony thorax or soft tissues. XR/XR chest 1V IMPRESSION: No acute pulmonary disease ECG Data Attestation: I personally reviewed and interpreted this ECG as follows: ECG interpretation date: 03/01/20 ECG interpretation time: 18:30 Prior ECG tracings: available for review Interpretation: Vent. Rate : 119 BPM Atrial Rate : 119 BPM P-R Int : 146 ms QRS Dur : 074 ms QT Int : 320 ms P-R-T Axes : 016 009 -05 degrees QTc Int : 450 ms Sinus tachycardia Otherwise normal ECG When compared with ECG of 07-NOV-2019 06:13, No significant change was found Critical Care Time Critical Care Time Critical Care Time: Yes Total Critical Care Time: 65 Attestation: I have personally provided critical care time exclusive of time spent on separately billable procedures. Time includes review of laboratory data, radiology results, discussion with consultants, and monitoring for potential decompensation. Interventions were performed as documented. Discharge Plan Discharge Clinical Impression: Dehydration Alcohol withdrawal Qualifiers: Complication of substance-induced condition: uncomplicated Qualified Code(s): F10.230 - Alcohol dependence with withdrawal, uncomplicated Patient Disposition: Admitted As Inpatient [facility] Past Medical History Attestation statement: The following information was validated with the patient. Medical History Alcohol abuse Anxiety Depression Post depression Tonsillectomy planned Social History Social History (Updated 03/01/20 @ 22:53 by Ned Simms MD) Household Members: Significant Other and Children Housing: House Alcohol intake: current Alcohol intake frequency: 3 or more drinks per day [place] type: hard liquor Smoking Status: Former smoker Use of substances other than those prescribed or required for medical reasons: Yes Substance Use Type: Marijuana Advance Directives: No Advance Directives Information Provided: Yes service: No
--- NOTE | 2020-03-01 17:31 | XR_ITS ---
EXAMINATION: XR CHEST CLINICAL INFORMATION: Alcohol withdrawal. Vomiting COMPARISON: None TECHNIQUE: Frontal view of the chest was obtained. FINDINGS: No significant abnormality is noted involving the heart, lungs, mediastinum, bony thorax or soft tissues. XR/XR chest 1V IMPRESSION: No acute pulmonary disease.
--- NOTE | 2020-03-01 17:50 | PC.NURSE ---
Report given to Alec SIMMONS, pt moved to main ED.
[2020-03-01 18:04] LABS: MANUAL DIFF FLAG NO
[2020-03-01] MEDS: HYDROmorphone HCl 1 MG/ML SYRINGE IVPUSH (18:12)
[2020-03-01] MEDS: LORazepam 2 MG/ML VIAL 0.5 MG IVPUSH (18:12)
[2020-03-01] MEDS: 0.9 % Sodium Chloride 1,000 ML 999 ML IVCONT (18:12)
[2020-03-01 18:15] LABS: Basophils Absolute Auto 0.1 X10*3/uL (0.0-0.2); Eosinophils Percent Auto 0.3 % (0-4); Hematocrit 46.8 % (37-47); Hemoglobin 16.1 g/dl (12.0-16.0); Imm Gran Abs Auto 0.01 X10*3/uL (0.00-0.03); Imm Gran Pct Auto 0.2 % (0.0-0.4); Lymphocytes Absolute Auto 1.8 X10*3/uL (1.2-4.9); Lymphocytes Percent Auto 32.1 % (20-40); Mean Corpuscular HGB Conc 34.4 g/dl (31.0-35.0); Mean Corpuscular Hemoglobin 33.1 pg (27.0-33.0); Mean Corpuscular Volume 96.1 fL (80-98); Mean Platelet Volume 8.8 fL (9.4-12.3); Monocytes Absolute Auto 0.5 X10*3/uL (0.1-1.2); Monocytes Percent Auto 9.1 % (2-11); Neutrophils Absolute Auto 3.3 X10*3/uL (2.0-8.3); Neutrophils Percent Auto 57.3 % (45-73); Platelet Count 208 X10*3/uL (160-400); Red Blood Count 4.87 X10*6/uL (4.20-5.50); Red Cell Distribution Width 13.2 % (11.0-16.0); White Blood Count 5.7 X10*3/uL (4.8-10.8)
[2020-03-01 18:16] LABS: INTERNATIONAL NORM RATIO 1.1 (0.9-1.1); Prothrombin Time 13.5 SEC (10.8-13.0)
[2020-03-01 18:18] LABS: Partial Thromboplastin Time 32.3 SEC (24.1-38.0)
[2020-03-01 18:29] LABS: Ethanol 288 mg/dL
[2020-03-01 18:34] LABS: Troponin-I High Sensitivity < 3.5 ng/L (<3.5-17.0)
[2020-03-01 18:38] LABS: Alanine Aminotransferase 123 U/L (0-31); Albumin Level 4.6 g/dL (3.5-5.0); Alkaline Phosphatase 79 U/L (39-117); Bilirubin Direct 0.3 mg/dL (0.0-0.5); Blood Urea Nitrogen 8 mg/dL (9-16); Calcium 8.5 mg/dL (8.4-10.2); Creatinine Clr Calc Pharmacy 130.6; Estimated Glomerular Filt Rate > 60; Glucose Random 99 mg/dL (60-115); Lipase 54 U/L (8-78); Magnesium 2.2 mg/dL (1.6-2.6); Total Protein 8.2 g/dL (6.5-8.0)
[2020-03-01] MEDS: ondansetron HCL 4 MG/2 ML VIAL IVPUSH (18:42)
--- NOTE | 2020-03-01 18:47 | PC.NURSE ---
medicated per emar, calm and cooperative, pleasant w this rn. this rn comfortable w giving pt her cell phone. contracted for safety. iv fluids infusing, wctm.
--- NOTE | 2020-03-01 19:25 | CT_ITS ---
EXAMINATION: CT ABDOMEN AND PELVIS WITHOUT CONTRAST CLINICAL INFORMATION: Nausea and vomiting with suspected pancreatitis COMPARISON: CT abdomen pelvis 11/07/2019 TECHNIQUE: Multidetector volumetric imaging was performed from the superior aspect of the liver through the pubic symphysis. Sagittal and coronal reformatted images were obtained on the technologist's workstation. This CT examination was performed using dose optimization techniques as appropriate, variously including the following: *Automated exposure control *Adjustment of mA and/or kV according to patient size (this includes techniques or standardized protocols for targeted exams where dose is matched to indication/reason for exam; i.e. extremities or head) *Use of iterative reconstruction technique DLP: 769 mGy-cm FINDINGS: LUNG BASES: The visualized lung bases are unremarkable. LIVER, GALLBLADDER, AND BILIARY TREE: The liver is enlarged measuring 20 cm in length and demonstrates marked hepatic steatosis. No focal liver lesion or bile duct dilatation is seen. The lesions seen previously is not identified on this study and may be a hemangioma is now isointense. The gallbladder is unremarkable with no evidence of radiopaque gallstones, gallbladder wall thickening, or obvious pericholecystic inflammatory changes. PANCREAS: Unremarkable. SPLEEN: Unremarkable. ADRENAL GLANDS: Unremarkable. KIDNEYS AND URETERS: The kidneys are normal in size, shape, and attenuation. No hydronephrosis, hydroureter, or calculi seen. No perinephric stranding. BLADDER: Unremarkable. GASTROINTESTINAL TRACT: The small and large bowel are unremarkable. The appendix is unremarkable. ABDOMINAL WALL: No significant hernia is appreciated. LYMPH NODES: Normal. VASCULAR: Unremarkable. PELVIC VISCERA: Unremarkable. OSSEOUS STRUCTURES: Unremarkable. CT/CT abdomen pelvis wo con IMPRESSION: Enlarged fatty liver. The pancreas appears normal and there is no evidence to suggest pancreatitis
[2020-03-01 20:14] LABS: Alanine Aminotransferase 104 U/L (0-31); Alkaline Phosphatase 71 U/L (39-117); Anion Gap 20 (12-20); Aspartate Amino Transferase 146 U/L (5-31); Bilirubin Direct 0.5 mg/dL (0.0-0.5); Bilirubin Total 0.9 mg/dL (0.0-1.0); Blood Urea Nitrogen 8 mg/dL (9-16); Calcium 7.5 mg/dL (8.4-10.2); Carbon Dioxide 22 mmol/L (22-29); Chloride 104 mmol/L (96-108); Creatinine Clr Calc Pharmacy 162.1; Estimated Glomerular Filt Rate > 60; Glucose Random 108 mg/dL (60-115); Potassium 3.5 mmol/l (3.3-5.1); Sodium 142 mmol/L (135-145); Total Protein 6.4 g/dL (6.5-8.0)
[2020-03-01] MEDS: PHENobarbitaL sodium 130 MG/ML VIAL 182 MG IM (20:17)
[2020-03-01 22:20] LABS: COVID-19 Test Negative (Negative); IDNOW Serial# 9DD0AD1C
--- NOTE | 2020-03-01 22:47 | PM.IMHP ---
History of Present Illness Date of Service: 03/01/20 Chief Complaint: Abdominal pain, diarrhea, vomiting 25 year old woman with history of ETOH abuse presented with symptoms including nausea, diarrhea, and epigastric pain. She has been using alcohol daily and was last hospitalized in December with similar symptoms. No fevers but does have chills. Poor PO intake last few days and has frequent diarrhea. No chest pain or dyspnea/chough. 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 She appears tremulous. For ETOH history , no prior seizures or hallucinations but does get very tremulous with her withdrawal. Did go to treatment after Jan 04 hospitalization. Review of Systems Review of Systems: Yes all other systems are reviewed and are negative Constitutional: Constitutional: Reports as per HPI ENT: Comments: No trouble swallowing Cardiovascular: Comments: No chest pain Respiratory: Respiratory: Reports as per HPI Gastrointestinal: Gastrointestinal: Reports as per HPI Musculoskeletal: Musculoskeletal: Reports no additional musculoskeletal complaints Psychiatric: Comments: anxious, depressed Hematologic/Lymphatic: Comments: No bruising PMFSH Medical History Alcohol abuse Anxiety Depression Post depression Tonsillectomy planned Functional capacity: independent ambulation Pertinent family history: Alcoholism Social History (Updated 03/01/20 @ 22:53 by Ned Simms MD) Household Members: Significant Other and Children Housing: House Alcohol intake: current Alcohol intake frequency: 3 or more drinks per day Alcohol type: hard liquor Smoking Status: Former smoker Use of substances other than those prescribed or required for medical reasons: Yes Substance Use Type: Marijuana Advance Directives: No Advance Directives Information Provided: Yes service: No Meds Allergies Allergy/AdvReac Type Severity Reaction Status Date / Time No Known Allergies Allergy Verified 12/07/19 21:16 Home Medications Medication Instructions Recorded Confirmed Type escitalopram oxalate [Lexapro] 20 mg PO BEDTIME 12/07/19 03/01/20 History clonidine HCl 0.1 mg PO TID PRN 01/03/20 03/01/20 History norgestimate-ethinyl estradiol 1 tab PO DAILY 01/03/20 03/01/20 History [Tri-Sprintec (28)] Physical Exam Vital Signs and Narrative: Vital Signs: Last Vital Signs Temp 97.3 F 03/01/20 17:09 Pulse 127 H 03/01/20 17:09 Resp 22 H 03/01/20 17:09 BP 146/98 H 03/01/20 17:09 Pulse Ox 96 03/01/20 17:09 Body Mass Index 33.3 Const: Other: tremulous General: cooperative HENMT: Head: Yes normal to inspection Eyes: Other: No scleral icterus Neck: Other: Supple, no adenopathy Chest: Chest palpation & inspection: normal inspection of the chest Resp: Other: Normal expansion, no insp crackles or exp wheezing. Effort & Inspection: normal respiratory effort Cardio: Other: Regular tacycardia, no murmur GI: Other: Soft, bowel sounds hypoactive, no guarding. Tender to palpation in epigastrum and LUQ. Inspection: Yes normal to inspection Skin: Other: No jaundice or bruising General skin exam: no rashes or lesions noted Extrem: Other: No leg edema seen Psych: Other: Anxious appearing Results Labs CBC and Chem 7: 03/01/20 17:59 03/01/20 19:33 Labs: Laboratory Results - last 24 hr 03/01/20 03/01/20 03/01/20 14:58 14:58 17:59 MCV 96.1 MCH 33.1 H MCHC 34.4 RDW 13.2 Plt Count 208 MPV 8.8 L Immature Gran % (Auto) 0.2 Neut % (Auto) 57.3 Lymph % (Auto) 32.1 [place] % (Auto) 9.1 Eos % (Auto) 0.3 Baso % (Auto) 1.0 Lymph # (Auto) 1.8 [place] # (Auto) 0.5 Eos # (Auto) 0.0 Baso # (Auto) 0.1 Abs Immat Gran (auto) 0.01 Absolute Neuts (auto) 3.3 Absolute Nucleated RBC 0.000 Nucleated RBC % (auto) 0.0 PT INR APTT Anion Gap Estim Creat Clear Calc Estimated GFR Random Glucose Calcium Magnesium Total Bilirubin Direct Bilirubin AST ALT Alkaline Phosphatase Troponin I High Sens Total Protein Albumin Lipase Urine Color YELLOW Urine Appearance CLEAR Urine pH 6.0 Ur Specific [place] 1.025 Urine Protein 2+ H Urine Glucose (UA) NEG Urine Ketones 5 Urine Blood 2+ H Urine Nitrite NEG Ur Leukocyte Esterase NEG Urine RBC 5-9 H Urine WBC 1-4 Ur Squamous Epith Cells 2+ Urine Bacteria TRACE Urine Mucus 2+ Urine Test NEGATIVE Urine Opiates Screen Not Detected Ur Barbiturates Screen Not Detected Ur Phencyclidine Scrn Not Detected Ur Amphetamines Screen Not Detected U Benzodiazepines Scrn Not Detected Urine Cocaine Screen Not Detected U Marijuana (THC) Screen Not Detected Ethyl Alcohol COVID-19 ([place]) COVID-19 [place] [employer] 03/01/20 03/01/20 03/01/20 17:59 17:59 17:59 MCV MCH MCHC RDW Plt Count MPV Immature Gran % (Auto) Neut % (Auto) Lymph % (Auto) [place] % (Auto) Eos % (Auto) Baso % (Auto) Lymph # (Auto) [place] # (Auto) Eos # (Auto) Baso # (Auto) Abs Immat Gran (auto) Absolute Neuts (auto) Absolute Nucleated RBC Nucleated RBC % (auto) PT 13.5 H INR 1.1 APTT 32.3 Anion Gap TNP Estim Creat Clear Calc 130.6 Estimated GFR > 60 Random Glucose 99 Calcium 8.5 D Magnesium 2.2 Total Bilirubin TNP Direct Bilirubin 0.3 AST TNP ALT 123 H Alkaline Phosphatase 79 Troponin I High Sens < 3.5 Total Protein 8.2 H Albumin 4.6 Lipase 54 Urine Color Urine Appearance Urine pH Ur Specific [place] Urine Protein Urine Glucose (UA) Urine Ketones Urine Blood Urine Nitrite Ur Leukocyte Esterase Urine RBC Urine WBC Ur Squamous Epith Cells Urine Bacteria Urine Mucus Urine Test Urine Opiates Screen Ur Barbiturates Screen Ur Phencyclidine Scrn Ur Amphetamines Screen U Benzodiazepines Scrn Urine Cocaine Screen U Marijuana (THC) Screen Ethyl Alcohol COVID-19 ([place]) COVID-19 [place] [employer] 03/01/20 03/01/20 03/01/20 17:59 19:33 19:33 MCV MCH MCHC RDW Plt Count MPV Immature Gran % (Auto) Neut % (Auto) Lymph % (Auto) [place] % (Auto) Eos % (Auto) Baso % (Auto) Lymph # (Auto) [place] # (Auto) Eos # (Auto) Baso # (Auto) Abs Immat Gran (auto) Absolute Neuts (auto) Absolute Nucleated RBC Nucleated RBC % (auto) PT INR APTT Anion Gap Cancelled 20 Estim Creat Clear Calc Cancelled 162.1 Estimated GFR Cancelled > 60 Random Glucose Cancelled 108 Calcium Cancelled 7.5 L D Magnesium Total Bilirubin 0.9 Direct Bilirubin 0.5 AST 146 H ALT 104 H Alkaline Phosphatase 71 Troponin I High Sens Total Protein 6.4 L D Albumin 4.0 Lipase Urine Color Urine Appearance Urine pH Ur Specific [place] Urine Protein Urine Glucose (UA) Urine Ketones Urine Blood Urine Nitrite Ur Leukocyte Esterase Urine RBC Urine WBC Ur Squamous Epith Cells Urine Bacteria Urine Mucus Urine Test Urine Opiates Screen Ur Barbiturates Screen Ur Phencyclidine Scrn Ur Amphetamines Screen U Benzodiazepines Scrn Urine Cocaine Screen U Marijuana (THC) Screen Ethyl Alcohol 288 COVID-19 ([place]) COVID-19 Clin Com 03/01/20 21:53 MCV MCH MCHC RDW Plt Count MPV Immature Gran % (Auto) Neut % (Auto) Lymph % (Auto) [place] % (Auto) Eos % (Auto) Baso % (Auto) Lymph # (Auto) [place] # (Auto) Eos # (Auto) Baso # (Auto) Abs Immat Gran (auto) Absolute Neuts (auto) Absolute Nucleated RBC Nucleated RBC % (auto) PT INR APTT Anion Gap Estim Creat Clear Calc Estimated GFR Random Glucose Calcium Magnesium Total Bilirubin Direct Bilirubin AST ALT Alkaline Phosphatase Troponin I High Sens Total Protein Albumin Lipase Urine Color Urine Appearance Urine pH Ur Specific [place] Urine Protein Urine Glucose (UA) Urine Ketones Urine Blood Urine Nitrite Ur Leukocyte Esterase Urine RBC Urine WBC Ur Squamous Epith Cells Urine Bacteria Urine Mucus Urine Test Urine Opiates Screen Ur Barbiturates Screen Ur Phencyclidine Scrn Ur Amphetamines Screen U Benzodiazepines Scrn Urine Cocaine Screen U Marijuana (THC) Screen Ethyl Alcohol COVID-19 ([place]) Negative COVID-19 Clin Com See Note Imaging Radiologist's Impressions: Impressions Chest X-Ray 03/01/20 17:31 IMPRESSION: No acute pulmonary disease. Abdomen/Pelvis CT 03/01/20 19:25 IMPRESSION: Enlarged fatty liver. The pancreas appears normal and there is no evidence to suggest pancreatitis Assessment and Plan (1) Alcohol withdrawal: Qualifiers: Complication of substance-induced condition: uncomplicated Qualified Code(s): F10.230 - Alcohol dependence with withdrawal, uncomplicated Status: Acute 25 year old woman presenting with alcohol dependence and withdrawal ETOH withdrawal Started on phenobarb protocol. Will also start folate/thiamine. Supportive care. Depression/Anxiety Continue Clonidine, Escitalopram. Abd pain No pancreatitis seen on CT and lipase normal. Likely has gastritits. Clear liquid diet and IVF ordered, Start empirin Protonix IV. Diarrhea Likely due to ETOH withdrawal. No respiratory symptoms and COVID test is negative. DVT proph SC Heparin ordered.
[2020-03-01 23:07] VITALS: BP 128/83; PULSE 106; RESP 16; TEMP 37.3; O2SAT 100
[2020-03-02] VITALS (10 sets, daily range): BP systolic 118–156; BP diastolic 69–103; PULSE 80–114; RESP 16–20; TEMP 36–36.8; O2SAT 95–99
--- NOTE | 2020-03-02 | ECG_ITS ---
Test Reason : RHYTHM CHANGE Blood Pressure : / mmHG Vent. Rate : 087 BPM Atrial Rate : 087 BPM P-R Int : 138 ms QRS Dur : 072 ms QT Int : 374 ms P-R-T Axes : 013 020 008 degrees QTc Int : 450 ms Sinus rhythm with sinus arrhythmia with Accelerated idioventricular rhythm Abnormal ECG When compared to the previous EKG of Accelerated idioventricular rhythm is now present Referred By: Ghanshyam Aleman Electronically Signed By:BRANT RICHTER MD
--- NOTE | 2020-03-02 | ECG_ITS ---
Test Reason : abnormal rhythm Blood Pressure : / mmHG Vent. Rate : 088 BPM Atrial Rate : 089 BPM P-R Int : 118 ms QRS Dur : 118 ms QT Int : 402 ms P-R-T Axes : 072 023 206 degrees QTc Int : 486 ms Sinus rhythm with Accelerated idioventricular rhythm with fusion complex Abnormal ECG When compared to the previous EKG of No significant changes seen Referred By: Per Shah Electronically Signed By:BRANT RICHTER MD
[2020-03-02] MEDS: cloNIDine HCL 0.1 MG TABLET PO ×2 (00:30→08:38)
[2020-03-02] MEDS: Pantoprazole Sodium 40 MG/10 ML VIAL IVPUSH ×3 (00:33→21:26)
[2020-03-02] MEDS: Heparin Sodium,Porcine 5,000 UNIT/ML VIAL 5000 UNIT SUBCUT ×3 (00:33→16:47)
[2020-03-02] MEDS: 0.9 % Sodium Chloride 1,000 ML 100 ML IVCONT ×3 (00:37→21:24)
[2020-03-02] MEDS: Escitalopram Oxalate 20 MG TABLET PO ×2 (00:38→21:25)
[2020-03-02] MEDS: Folic Acid 1 MG TABLET PO ×2 (00:38→08:38)
[2020-03-02] MEDS: 0.9 % Sodium Chloride Flush 3 ML SYRINGE IVFLUSH ×3 (00:39→16:48)
[2020-03-02] MEDS: HYDROmorphone HCl 1 MG/ML SYRINGE IVPUSH (01:59)
[2020-03-02] MEDS: PHENobarbitaL sodium 130 MG/ML VIAL 137 MG IM ×2 (02:00→05:41)
--- NOTE | 2020-03-02 05:00 | PC.NURSE ---
2300 dose of phenobarb did not cross over until after 0100 buts dose was given @ 0200, and RN receiving pt made aware.
[2020-03-02] MEDS: PHENobarbitaL 15 MG TABLET 45 MG PO ×2 (08:38→21:25)
--- NOTE | 2020-03-02 09:48 | MHC.CM.PN ---
Patient is here with ETOH Withdrawal; CM has attempted to speak with Patient but she appears sound asleep/ not easily aroused. CM spoke with Patient's S.O./Bret . Patient lives with Bret and her 2 children ages 9 months & 2 years. Bret informed CM that there is an active DCF Case going on r/t Patient's ETOH and Post Depression (Patient is seeing a Therapist).The goal for dc is home vs possible Care Team Recommendations/Interventions. CM has initiated and will follow for dc planning.
--- NOTE | 2020-03-02 10:15 | MHC.CM.PN ---
SHANNON informed DCF via lengthy call to Hot line at that Patient, who has an active DCF Case has been admitted to the Hospital with ETOH Withdrawal and Abdominal Pain.Hot Line indicated that she will relay this information to the appropriate License Registration Examiner already involved with this case bit she would not reveal the Social Workers name to SHANNON. SHANNON will follow.
[2020-03-02] MEDS: Acetaminophen 325 MG TABLET 650 MG PO ×2 (13:18→19:48)
[2020-03-02] MEDS: PHENobarbitaL sodium 65 MG/ML VIAL 120 MG IM (13:18)
--- NOTE | 2020-03-02 15:45 | P.PNIM_ITS ---
Subjective Subjective Date of Service: 03/02/20 Interval History: alcohol withdrwal Review of Systems Patient denies any chest pain or shortness of breath or abdominal pain or fever chills She is very anxious and having significant tremors, In addition having headaches Also complaining of some epigastric discomfort. She said that the she was having lot of stress and was drinking alcohol probably due to that. Physical Exam Vital Signs: Vital Signs: Last Vital Signs Temp 96.8 F 03/02/20 15:32 Pulse 100 03/02/20 15:32 Resp 19 03/02/20 15:32 BP 118/69 03/02/20 15:32 Pulse Ox 97 03/02/20 15:32 Body Mass Index 33.3 Physical exam: Cvs: [id number], [id number] , no murmur res: clear to auscultation ,no rhonchii or wheezing abd: no rebound or guarding ,nt, bs present. ext pulses present , no cyanosis neuro: axo3 , nonfocal. Objective Data Current Medications Generic Name Dose Route Start Last Admin Trade Name Ban PRN Reason Stop Dose Admin Acetaminophen 650 mg 03/02/20 12:02 03/02/20 13:18 Acetaminophen 325 Mg Tablet PO 650 mg Q6H PRN Administration Headache Clonidine HCl 0.1 mg 03/01/20 23:07 03/02/20 08:38 Clonidine Hcl 0.1 Mg Tablet PO 0.1 mg TID PRN Administration Anxiety Protocol Escitalopram Oxalate 20 mg 03/02/20 21:00 03/02/20 00:38 Escitalopram Oxalate 20 Mg Tablet PO 20 mg BEDTIME ESSIE Administration Folic Acid 1 mg 03/01/20 23:10 03/02/20 08:38 Folic Acid 1 Mg Tablet PO 1 mg DAILY ESSIE Administration Heparin Sodium (Porcine) 5,000 unit 03/01/20 23:07 03/02/20 08:37 Heparin Sodium,Porcine 5,000 Unit/Ml Vial SUBCUT 5,000 unit Q8H ESSIE Administration Hydromorphone HCl 0.5 mg 03/02/20 02:43 Hydromorphone Hcl 0.5 Mg/0.5 Ml Syringe IVPUSH Q4H PRN Pain, Moderate (Pain Scale 4-6 Sodium Chloride 1,000 mls @ 100 mls/hr 03/01/20 23:07 03/02/20 11:23 Ns IVCONT 100 mls/hr .Q10H ESSIE Administration Magnesium Oxide 400 mg 03/02/20 17:30 Magnesium Oxide 400 Mg Tablet PO BIDPC ESSIE Medication 1 each 03/01/20 19:45 No Benzodiazepines MISCELLANE DAILY [facility] Ondansetron HCl 4 mg 03/02/20 12:01 Ondansetron Hcl 4 Mg/2 Ml Vial IVPUSH Q6H PRN Nausea Pantoprazole Sodium 40 mg 03/01/20 23:07 03/02/20 08:38 Pantoprazole Sodium 40 Mg/10 Ml Vial IVPUSH 40 mg BID [facility] Administration Pharmacy Consult 1 each 03/01/20 17:37 Consult Rx Perform Med Rec MISCELLANE ONCE PRN Consult order Phenobarbital 45 mg 03/02/20 09:00 03/02/20 08:38 Phenobarbital 15 Mg Tablet PO 03/03/20 21:01 45 mg BID ESSIE Administration Phenobarbital 15 mg 03/04/20 09:00 Phenobarbital 15 Mg Tablet PO 03/05/20 21:01 BID [facility] Phenobarbital 15 mg 03/06/20 09:00 Phenobarbital 15 Mg Tablet PO 03/07/20 09:01 DAILY [facility] Potassium Chloride 40 meq 03/02/20 15:38 Potassium Chloride Packet 20 Meq Packet PO 03/02/20 15:39 ONCE ONE Sodium Chloride 3 ml 03/02/20 00:00 03/02/20 08:38 0.9 % Sodium Chloride Flush 3 Ml Syringe IVFLUSH 3 ml QSHIFT [facility] Administration Labs CBC & Chem 7: 03/01/20 17:59 03/01/20 19:33 Assessment and Plan (1) Alcohol withdrawal: Status: Acute (2) Hypomagnesemia: Status: Acute (3) Menorrhagia: Status: Acute Assessment and Plan: 24F presented with N/v 1.alcohol dependence with withdrawl and fatty alcoholic liver Still seems in significant withdrawal Will continue current phenobarb protocol, added an additional dose of phenobarb IM. abstinence encouraged Elevated LFT probably due to alcohol EKG reviewed and seems similar to prior-? Few pvc's nted Patient asymptomatic-denies any chest pain or shortness of breath or any new symptoms. Potassium is borderline-we will replete potassium and also added p.o. magnesium. 2.N/V/epigastric discomfort improved, plan for solid food challenge Ppi 3.hypomagnesemia replaced and improved 4.menorrhagia/irregular periods not anemic only 2 months , would hold of on US for now and follow up with [facility] as outpatient
[2020-03-02] MEDS: Magnesium Oxide 400 MG TABLET PO (16:48)
[2020-03-02] MEDS: Potassium Chloride Packet 20 MEQ PACKET 40 MEQ PO (16:48)
[2020-03-02 20:08] LABS: Anion Gap 18 (12-20); Blood Urea Nitrogen 2 mg/dL (9-16); Calcium 7.7 mg/dL (8.4-10.2); Carbon Dioxide 21 mmol/L (22-29); Chloride 97 mmol/L (96-108); Creatinine Clr Calc Pharmacy 146.9; Estimated Glomerular Filt Rate > 60; Glucose Random 82 mg/dL (60-115); Magnesium 1.5 mg/dL (1.6-2.6); Potassium 4.2 mmol/l (3.3-5.1); Sodium 132 mmol/L (135-145)
[2020-03-02] MEDS: Magnesium Sulfate/D5W 1 GM/100 ML PIGGYBACK IV (21:25)
[2020-03-03 01:04] VITALS: PULSE 86
[2020-03-03] MEDS: Heparin Sodium,Porcine 5,000 UNIT/ML VIAL 5000 UNIT SUBCUT ×3 (01:04→14:15)
[2020-03-03] MEDS: cloNIDine HCL 0.1 MG TABLET PO ×2 (01:04→20:46)
[2020-03-03] MEDS: 0.9 % Sodium Chloride Flush 3 ML SYRINGE IVFLUSH ×2 (01:04→07:48)
[2020-03-03 04:00] VITALS: BP 120/71; PULSE 73; RESP 18; TEMP 37.1; O2SAT 98
[2020-03-03] MEDS: ondansetron HCL 4 MG/2 ML VIAL IVPUSH (05:39)
[2020-03-03 06:53] LABS: Anion Gap 16 (12-20); Blood Urea Nitrogen 2 mg/dL (9-16); Calcium 7.6 mg/dL (8.4-10.2); Carbon Dioxide 24 mmol/L (22-29); Chloride 97 mmol/L (96-108); Creatinine Clr Calc Pharmacy 164.9; Estimated Glomerular Filt Rate > 60; Glucose Random 64 mg/dL (60-115); Potassium 3.4 mmol/l (3.3-5.1); Sodium 134 mmol/L (135-145)
[2020-03-03 08:00] VITALS: BP 124/83; PULSE 81; RESP 20; TEMP 36.9; O2SAT 96
[2020-03-03 08:26] LABS: Magnesium 1.8 mg/dL (1.6-2.6)
--- NOTE | 2020-03-03 08:49 | MHC.CARE ---
CARE Team met with Pt secondary to consult placed for Alcohol Withdrawal . Pt was pleasant and engaged with t/w. Pt currently has support through [facility]. Pt reported being interested in CSS . CARE Team provided Pt with CSS information, multiple pathways to recovery and [facility]. Pt declined a coach mechanic referral at this time.
[2020-03-03] MEDS: 0.9 % Sodium Chloride 1,000 ML 100 ML IVCONT ×2 (09:00→18:19)
[2020-03-03] MEDS: PHENobarbitaL 15 MG TABLET 45 MG PO ×2 (09:01→20:40)
[2020-03-03] MEDS: Pantoprazole Sodium 40 MG/10 ML VIAL IVPUSH ×2 (09:01→20:40)
[2020-03-03] MEDS: Folic Acid 1 MG TABLET PO (09:01)
[2020-03-03] MEDS: Magnesium Oxide 400 MG TABLET PO ×2 (09:01→15:58)
[2020-03-03 11:56] VITALS: BP 121/70; PULSE 84; RESP 20; TEMP 37.2; O2SAT 98
[2020-03-03] MEDS: Potassium Chloride Packet 20 MEQ PACKET 40 MEQ PO (12:58)
[2020-03-03] MEDS: Magnesium Oxide 400 MG TABLET 800 MG PO (12:59)
--- NOTE | 2020-03-03 13:51 | HO.PM.IMPN ---
Subjective Subjective Date of Service: 03/03/20 Interval History: nsvt vs pvc's with fusion beat?, alcohol withdrawal Review of Systems Tremors and the shakiness ramos seems significantly better, Abdominal pain is also improving Denies any chest pain or shortness of breath or fever or chills or nausea or vomiting. Physical Exam Vital Signs: Vital Signs: Last Vital Signs Temp 98.9 F 03/03/20 11:56 Pulse 84 03/03/20 11:56 Resp 20 03/03/20 11:56 BP 121/70 03/03/20 11:56 Pulse Ox 98 03/03/20 11:56 Body Mass Index 33.3 Physical exam: Constitutional: Not in acute distress Cvs: [id number], [id number] , no murmur res: clear to auscultation ,no rhonchii or wheezing abd: no rebound or guarding ,nt, bs present. ext pulses present , no cyanosis neuro: axo3 , nonfocal. Objective Data Current Medications Generic Name Dose Route Start Last Admin Trade Name Gregoryq PRN Reason Stop Dose Admin Acetaminophen 650 mg 03/02/20 12:02 03/02/20 19:48 Acetaminophen 325 Mg Tablet PO 650 mg Q6H PRN Administration Headache Calcium Carbonate 500 mg 03/02/20 21:00 03/03/20 09:01 Calcium Carbonate 500 Mg Tablet PO 500 mg TID ESSIE Administration Clonidine HCl 0.1 mg 03/01/20 23:07 03/03/20 01:04 Clonidine Hcl 0.1 Mg Tablet PO 0.1 mg TID PRN Administration Anxiety Protocol Escitalopram Oxalate 20 mg 03/02/20 21:00 03/02/20 21:25 Escitalopram Oxalate 20 Mg Tablet PO 20 mg BEDTIME ESSIE Administration Folic Acid 1 mg 03/01/20 23:10 03/03/20 09:01 Folic Acid 1 Mg Tablet PO 1 mg DAILY ESSIE Administration Heparin Sodium (Porcine) 5,000 unit 03/01/20 23:07 03/03/20 07:48 Heparin Sodium,Porcine 5,000 Unit/Ml Vial SUBCUT 5,000 unit Q8H ESSIE Administration Hydromorphone HCl 0.5 mg 03/02/20 02:43 Hydromorphone Hcl 0.5 Mg/0.5 Ml Syringe IVPUSH Q4H PRN Pain, Moderate (Pain Scale 4-6 Sodium Chloride 1,000 mls @ 100 mls/hr 03/01/20 23:07 03/03/20 09:00 Ns IVCONT 100 mls/hr .Q10H ESSIE Administration Magnesium Oxide 400 mg 03/02/20 17:30 03/03/20 09:01 Magnesium Oxide 400 Mg Tablet PO 400 mg BIDPC ESSIE Administration Medication 1 each 03/01/20 19:45 No Benzodiazepines MISCELLANE DAILY ESSIE Ondansetron HCl 4 mg 03/02/20 12:01 03/03/20 05:39 Ondansetron Hcl 4 Mg/2 Ml Vial IVPUSH 4 mg Q6H PRN Administration Nausea Pantoprazole Sodium 40 mg 03/01/20 23:07 03/03/20 09:01 Pantoprazole Sodium 40 Mg/10 Ml Vial IVPUSH 40 mg BID ESSIE Administration Pharmacy Consult 1 each 03/01/20 17:37 Consult Rx Perform Med Rec MISCELLANE ONCE PRN Consult order Phenobarbital 45 mg 03/02/20 09:00 03/03/20 09:01 Phenobarbital 15 Mg Tablet PO 03/03/20 21:01 45 mg BID ESSIE Administration Phenobarbital 15 mg 03/04/20 09:00 Phenobarbital 15 Mg Tablet PO 03/05/20 21:01 BID ESSIE Phenobarbital 15 mg 03/06/20 09:00 Phenobarbital 15 Mg Tablet PO 03/07/20 09:01 DAILY ESSIE Sodium Chloride 3 ml 03/02/20 00:00 03/03/20 07:48 0.9 % Sodium Chloride Flush 3 Ml Syringe IVFLUSH 3 ml QSHIFT [facility]IE Administration Labs CBC & Chem 7: 03/01/20 17:59 03/03/20 05:03 Assessment and Plan (1) Dehydration: Status: Acute (2) Alcohol withdrawal: Status: Acute (3) Hypomagnesemia: Status: Acute (4) Menorrhagia: Status: Acute Assessment and Plan: 24F presented with N/v 1.alcohol dependence with withdrawl and fatty alcoholic liver Still seems in significant withdrawal Will continue current phenobarb protocol, added an additional dose of phenobarb IM. abstinence encouraged Elevated LFT probably due to alcohol 2.EKG yesterday and seems similar to prior- today n tele ? nsvt vs Frequent pvc's nted Patient asymptomatic-denies any chest pain or shortness of breath or any new symptoms. Potassium still borderline-we will replete potassium and continue p.o. magnesium. added cardio eval 2.N/V/epigastric discomfort improved, plan for solid food challenge Ppi 3.hypomagnesemia replaced and improved 4.menorrhagia/irregular periods not anemic only 2 months , would hold of on US for now and follow up with [facility] as outpatient
[2020-03-03 16:00] VITALS: BP 148/88; PULSE 85; RESP 20; TEMP 36; O2SAT 98
[2020-03-03] MEDS: Potassium Chloride Packet 20 MEQ PACKET PO (17:39)
[2020-03-03 19:12] VITALS: BP 147/76; PULSE 105; RESP 218; TEMP 36.2; O2SAT 100
[2020-03-03] MEDS: Escitalopram Oxalate 20 MG TABLET PO (20:40)
[2020-03-04] VITALS: BP 127/66; PULSE 92; RESP 18; TEMP 36.8; O2SAT 96
[2020-03-04] MEDS: Heparin Sodium,Porcine 5,000 UNIT/ML VIAL 5000 UNIT SUBCUT ×2 (00:44→08:16)
[2020-03-04] MEDS: 0.9 % Sodium Chloride Flush 3 ML SYRINGE IVFLUSH (00:44)
[2020-03-04 04:00] VITALS: BP 109/65; PULSE 69; RESP 18; TEMP 37.2; O2SAT 97
[2020-03-04] MEDS: 0.9 % Sodium Chloride 1,000 ML 100 ML IVCONT (04:19)
[2020-03-04 05:35] LABS: Anion Gap 11 (12-20); Blood Urea Nitrogen 2 mg/dL (9-16); Carbon Dioxide 27 mmol/L (22-29); Chloride 103 mmol/L (96-108); Creatinine Clr Calc Pharmacy 177.4; Estimated Glomerular Filt Rate > 60; Glucose Random 105 mg/dL (60-115); Potassium 3.5 mmol/l (3.3-5.1); Sodium 137 mmol/L (135-145)
[2020-03-04 08:00] VITALS: BP 117/76; PULSE 75; RESP 16; TEMP 36.5; O2SAT 98
[2020-03-04] MEDS: Magnesium Oxide 400 MG TABLET PO (08:15)
[2020-03-04] MEDS: Folic Acid 1 MG TABLET PO (08:16)
[2020-03-04] MEDS: Pantoprazole Sodium 40 MG/10 ML VIAL IVPUSH (08:16)
[2020-03-04] MEDS: PHENobarbitaL 15 MG TABLET PO (08:22)
--- NOTE | 2020-03-04 10:03 | PM.CNCAR ---
History of Present Illness History of Present Illness Date of Service: 03/04/20 Consult reason: other (abnormal EKG) Chief complaint: ABD PAIN, ALCOHOL WITHDRAWAL Narrative: This is a cardiology consultation regarding abnormal EKG showing idioventricular rhythm. Patient does not have any known cardiac problems. She does not have any history of coronary disease or myocardial infarction or cardiomyopathy or in fact any other cardiac issues. She also denies any significant family history of the same. She states that she drinks daily and has been having this problem for years. She is presenting with symptoms including nausea, diarrhea and epigastric pain. She does not have any chest pain or shortness of breath or palpitations or dizzy spells or syncopal episodes. EKG and telemetry had shown idioventricular rhythm and hence we have been consulted. Review of Systems Review of Systems: Yes all other systems are reviewed and are negative Cardiovascular: Cardiovascular: Reports as per HPI, Reports no additional cardiovascular complaints, Denies acrocyanosis, Denies cool extremities, Denies painful fingertips, Denies chest pain, Denies chest pain at rest, Denies diaphoresis, Denies syncope, Denies irregular heart rhythm, Denies claudication, Denies leg edema, Denies lightheadedness, Denies palpitations and Denies dyspnea Respiratory: Respiratory: Denies dyspnea Neurologic: Denies syncope Endocrine: Endocrine: Denies palpitations [facility] Past Medical History Medical History (Updated 03/04/20 @ 10:06 by Pradip Corral MD) Alcohol abuse Anxiety Depression Post depression Tonsillectomy planned Functional capacity: independent ambulation Social History Social History Household Members: Spouse and Children Housing: House Do you presently have visiting nurse or other home services: No Alcohol intake: current Alcohol intake frequency: 3 or more drinks per day Alcohol type: hard liquor Smoking Status: Former smoker Use of substances other than those prescribed or required for medical reasons: Yes Substance Use Type: Marijuana Substance Use Frequency: Weekly Last Used Substance: Days (ago) Last Used Substance Other:: 3 Currently Displaying Signs/Symptoms of Drug Intoxication Withdrawal: No Any prior treatment program specific to substance use: No Have you been hit, kicked, punched, or otherwise hurt by someone within the past year? If so, by whom?: No Do you feel safe in your current relationship?: Yes Is there a partner from a previous relationship who is making you feel unsafe now?: No Are you made to feel afraid or neglected: No Advance Directives: No Advance Directives Information Provided: Yes Advance Directives on File: Yes Do you have thoughts of harming others: None Do you have a plan to hurt others: No Plan Recently lost weight without trying: No service: No Current occupational status: unemployed Meds Allergies Allergy/AdvReac Type Severity Reaction Status Date / Time No Known Allergies Allergy Verified 12/07/19 21:16 Home Medications Medication Instructions Recorded Confirmed Type escitalopram oxalate [Lexapro] 20 mg PO BEDTIME 12/07/19 03/01/20 History clonidine HCl 0.1 mg PO TID PRN 01/03/20 03/01/20 History norgestimate-ethinyl estradiol 1 tab PO DAILY 01/03/20 03/01/20 History [Tri-Sprintec (28)] Physical Exam Vital Signs: Vital Signs: Last Vital Signs Temp 97.7 F 03/04/20 08:00 Pulse 75 03/04/20 08:00 Resp 16 03/04/20 08:00 BP 117/76 03/04/20 08:00 Pulse Ox 98 03/04/20 08:00 Body Mass Index 33.3 Const: General: cooperative, comfortable and no acute distress Orientation/consciousness: patient oriented x3 HENMT: Other: Unremarkable Neck: Neck: Yes normal visual inspection Chest: Chest palpation & inspection: normal inspection of the chest Resp: Auscultation: clear to auscultation bilaterally, no crackles and no wheezes Cardio: Jugular venous distension: no JVD Palpation: normal PMI Heart sounds: S1 normal heart sound present, S2 normal heart sound present, no gallops, no murmurs and no rubs GI: Palpation (GI): Soft to palpation Back/Spine/Pelvis: Other: unremarkable Skin: General skin exam: no rashes or lesions noted Neuro: General: patient oriented x3 Extrem: General: Yes no clubbing, cyanosis or edema Psych: Mental Status: mental status grossly normal Results Labs and Meds Result diagrams: 03/01/20 17:59 03/04/20 04:29 Lab results: Laboratory Results - last 24 hr 03/04/20 04:29 Sodium 137 Potassium 3.5 Chloride 103 Carbon Dioxide 27 Anion Gap 11 L BUN 2 L Creatinine 0.53 Estim Creat Clear Calc 177.4 Estimated GFR > 60 Random Glucose 105 D Calcium 8.0 L Assessment and Plan (1) Idioventricular rhythm: Status: Acute (2) Alcohol abuse: Status: Inactive (3) Hypomagnesemia: Status: Acute EKGs were reviewed. Underlying rhythm appears to be sinus but there is evidence of a broad complex rhythm at about 85/Min that appears to be idioventricular. This could be related to alcohol abuse as well as low magnesium. Correct the magnesium to >2. Keep potassium > 4. Strongly counseled about dangers of alcohol abuse with specifically effects on the heart. She states she understands. Otherwise, we will get an echocardiogram for cardiac function assessment to ensure there is no alcoholic cardiomyopathy.
[2020-03-04 11:56] VITALS: BP 139/95; PULSE 89; RESP 18; TEMP 36.2; O2SAT 98
[2020-03-04 12:00] VITALS: BMI 33.3
--- NOTE | 2020-03-04 12:49 | P.DS_ITS ---
DS: Providers Provider Date of Service: 03/04/20 Date of admission: 03/01/20 23:07 Primary care physician: Keesha Rodriguez NP Consults: 03/02/20 16:47 Consult to Care Team Routine Comment: Reason for consultation: Alcohol withdrawal 03/03/20 11:56 Consult to Cardiology Routine Consulting Provider: Sergio Vaca Reason for consultation: NSVT vs pvc with fusion beats very frequesnt Has provider been notified: No DS: Diagnosis Discharge Diagnosis (1) Idioventricular rhythm: Status: Acute (2) Alcohol abuse: Status: Inactive (3) Hypomagnesemia: Status: Acute DS: Medications Discharge Medications Home Medications: Home Medications Medication Instructions Recorded Confirmed escitalopram oxalate [Lexapro] 20 mg PO BEDTIME 12/07/19 03/01/20 clonidine HCl 0.1 mg PO TID PRN 01/03/20 03/01/20 norgestimate-ethinyl estradiol 1 tab PO DAILY 01/03/20 03/01/20 [Tri-Sprintec (28)] Previous Rx's Medication Instructions Recorded magnesium oxide 400 mg PO BIDPC #10 tab 03/04/20 omeprazole 20 mg PO DAILY #30 cap 03/04/20 potassium chloride 10 meq PO DAILY #5 cap 03/04/20 DS: Summary Hospital Course Hospital Course: 25 year old woman with history of ETOH abuse presented with symptoms including nausea, diarrhea, and epigastric pain. She has been using alcohol daily and was last hospitalized in December with similar symptoms. No fevers but does have chills. Poor PO intake last few days and has frequent diarrhea. No chest pain or dyspnea/chough. 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 She appears tremulous. For ETOH history , no prior seizures or hallucinations but does get very tremulous with her withdrawal. Did go to treatment after Jan 04 hospitalization. Hospital Course problem ramos section. Patient came to the hospital because of alcohol withdrawal, also has some gastritis probably related to alcohol. Patient was started on phenobarb and subsequently patient improved also given omeprazole for gastritis issue. Her LFTs are slightly elevated which probably related to alcohol use. In addition patient had mild borderline potassium at and hypomagnesemia: Which were repleted and seems normal and additional limited supply was given upon discharge. Patient is to follow-up with BMP, liver panel, magnesium level with PCP in within 1 week, further management outpatient as per PCP. Patient had episode idioventricular rhythm on tele which was thought to be related to electrolyte(hypomagnesemia, borderline potassium which is repleted)- seems fine on the telemetry currently. Further workup outpatient with PCP. Above management discussed with the patient in detail length she understand and in agreement with the above plan, time spent 50 minutes and 50% time spent on counseling. Significant findings: As above. Procedures performed: None. Treatment and response: As above. Complications: None. Time Spent with Patient Time attestation: Total time spent providing and/or coordinating discharge services: Discharge coordination time: Greater than 30 minutes Physical Exam Vital Signs: Vital Signs: Last Vital Signs Temp 97.2 F 03/04/20 11:56 Pulse 89 03/04/20 11:56 Resp 18 03/04/20 11:56 BP 139/95 H 03/04/20 11:56 Pulse Ox 98 03/04/20 11:56 Body Mass Index 33.3 Physical exam Constitutional: Not in acute distress. Cvs: rrr, [id number] , no murmur res: clear to auscultation ,no rhonchii or wheezing abd: no rebound or guarding ,nt, bs present. ext pulses present , no cyanosis neuro: axo3 , nonfocal. DS: Data Data Completed and Pending Completed studies during hospitalization [Text1]: Procedures Detoxification Services for Substance Abuse Treatment (12/26/19) Labs on day of discharge: Laboratory Tests 03/01/20 03/01/20 03/01/20 14:58 14:58 17:59 WBC 5.7 RBC 4.87 D Hgb 16.1 H D Hct 46.8 MCV 96.1 MCH 33.1 H MCHC 34.4 RDW 13.2 Plt Count 208 MPV 8.8 L Immature Gran % (Auto) 0.2 Neut % (Auto) 57.3 Lymph % (Auto) 32.1 Spalding % (Auto) 9.1 Eos % (Auto) 0.3 Baso % (Auto) 1.0 Lymph # (Auto) 1.8 Spalding # (Auto) 0.5 Eos # (Auto) 0.0 Baso # (Auto) 0.1 Abs Immat Gran (auto) 0.01 Absolute Neuts (auto) 3.3 Absolute Nucleated RBC 0.000 Nucleated RBC % (auto) 0.0 PT INR APTT Sodium Potassium Chloride Carbon Dioxide Anion Gap BUN Creatinine Estim Creat Clear Calc Estimated GFR Random Glucose Calcium Magnesium Total Bilirubin Direct Bilirubin AST ALT Alkaline Phosphatase Troponin I High Sens Total Protein Albumin Lipase Urine Color YELLOW Urine Appearance CLEAR Urine pH 6.0 Ur Specific Dawson 1.025 Urine Protein 2+ H Urine Glucose (UA) NEG Urine Ketones 5 Urine Blood 2+ H Urine Nitrite NEG Ur Leukocyte Esterase NEG Urine RBC 5-9 H Urine WBC 1-4 Ur Squamous Epith Cells 2+ Urine Bacteria TRACE Urine Mucus 2+ Urine Test NEGATIVE Urine Opiates Screen Not Detected Ur Barbiturates Screen Not Detected Ur Phencyclidine Scrn Not Detected Ur Amphetamines Screen Not Detected U Benzodiazepines Scrn Not Detected Urine Cocaine Screen Not Detected U Marijuana (THC) Screen Not Detected Ethyl Alcohol COVID-19 ([place]) [employer] 03/01/20 03/01/20 03/01/20 17:59 17:59 17:59 WBC RBC Hgb Hct MCV MCH MCHC RDW Plt Count MPV Immature Gran % (Auto) Neut % (Auto) Lymph % (Auto) Spalding % (Auto) Eos % (Auto) Baso % (Auto) Lymph # (Auto) Spalding # (Auto) Eos # (Auto) Baso # (Auto) Abs Immat Gran (auto) Absolute Neuts (auto) Absolute Nucleated RBC Nucleated RBC % (auto) PT 13.5 H INR 1.1 APTT 32.3 Sodium TNP Potassium TNP Chloride TNP Carbon Dioxide TNP Anion Gap TNP BUN 8 L D Creatinine 0.72 Estim Creat Clear Calc 130.6 Estimated GFR > 60 Random Glucose 99 Calcium 8.5 D Magnesium 2.2 Total Bilirubin TNP Direct Bilirubin 0.3 AST TNP ALT 123 H Alkaline Phosphatase 79 Troponin I High Sens < 3.5 Total Protein 8.2 H Albumin 4.6 Lipase 54 Urine Color Urine Appearance Urine pH Ur Specific Dawson Urine Protein Urine Glucose (UA) Urine Ketones Urine Blood Urine Nitrite Ur Leukocyte Esterase Urine RBC Urine WBC Ur Squamous Epith Cells Urine Bacteria Urine Mucus Urine Test Urine Opiates Screen Ur Barbiturates Screen Ur Phencyclidine Scrn Ur Amphetamines Screen U Benzodiazepines Scrn Urine Cocaine Screen U Marijuana (THC) Screen Ethyl Alcohol COVID-19 ([place]) COVID-19 [employer] 0103/01/20 03/01/20 17:59 19:33 19:33 WBC RBC Hgb Hct MCV MCH MCHC RDW Plt Count MPV Immature Gran % (Auto) Neut % (Auto) Lymph % (Auto) Spalding % (Auto) Eos % (Auto) Baso % (Auto) Lymph # (Auto) Spalding # (Auto) Eos # (Auto) Baso # (Auto) Abs Immat Gran (auto) Absolute Neuts (auto) Absolute Nucleated RBC Nucleated RBC % (auto) PT INR APTT Sodium Cancelled 142 Potassium Cancelled 3.5 Chloride Cancelled 104 Carbon Dioxide Cancelled 22 Anion Gap Cancelled 20 BUN Cancelled 8 L Creatinine Cancelled 0.58 Estim Creat Clear Calc Cancelled 162.1 Estimated GFR Cancelled > 60 Random Glucose Cancelled 108 Calcium Cancelled 7.5 L D Magnesium Total Bilirubin 0.9 Direct Bilirubin 0.5 AST 146 H ALT 104 H Alkaline Phosphatase 71 Troponin I High Sens Total Protein 6.4 L D Albumin 4.0 Lipase Urine Color Urine Appearance Urine pH Ur Specific Dawson Urine Protein Urine Glucose (UA) Urine Ketones Urine Blood Urine Nitrite Ur Leukocyte Esterase Urine RBC Urine WBC Ur Squamous Epith Cells Urine Bacteria Urine Mucus Urine Test Urine Opiates Screen Ur Barbiturates Screen Ur Phencyclidine Scrn Ur Amphetamines Screen U Benzodiazepines Scrn Urine Cocaine Screen U Marijuana (THC) Screen Ethyl Alcohol 288 COVID-19 ([place]) COVID-19 Clin Com 03/01/20 03/02/20 03/03/20 21:53 19:16 05:03 WBC RBC Hgb Hct MCV MCH MCHC RDW Plt Count MPV Immature Gran % (Auto) Neut % (Auto) Lymph % (Auto) Spalding % (Auto) Eos % (Auto) Baso % (Auto) Lymph # (Auto) Spalding # (Auto) Eos # (Auto) Baso # (Auto) Abs Immat Gran (auto) Absolute Neuts (auto) Absolute Nucleated RBC Nucleated RBC % (auto) PT INR APTT Sodium 132 L 134 L Potassium 4.2 3.4 Chloride 97 97 Carbon Dioxide 21 L 24 Anion Gap 18 16 BUN 2 L D 2 L Creatinine 0.64 0.57 Estim Creat Clear Calc 146.9 164.9 Estimated GFR > 60 > 60 Random Glucose 82 64 Calcium 7.7 L 7.6 L Magnesium 1.5 L Total Bilirubin Direct Bilirubin AST ALT Alkaline Phosphatase Troponin I High Sens Total Protein Albumin Lipase Urine Color Urine Appearance Urine pH Ur Specific Dawson Urine Protein Urine Glucose (UA) Urine Ketones Urine Blood Urine Nitrite Ur Leukocyte Esterase Urine RBC Urine WBC Ur Squamous Epith Cells Urine Bacteria Urine Mucus Urine Test Urine Opiates Screen Ur Barbiturates Screen Ur Phencyclidine Scrn Ur Amphetamines Screen U Benzodiazepines Scrn Urine Cocaine Screen U Marijuana (THC) Screen Ethyl Alcohol COVID-19 ([place]) Negative COVID-19 Clin Com See Note 03/03/20 03/04/20 07:39 04:29 WBC RBC Hgb Hct MCV MCH MCHC RDW Plt Count MPV Immature Gran % (Auto) Neut % (Auto) Lymph % (Auto) Spalding % (Auto) Eos % (Auto) Baso % (Auto) Lymph # (Auto) Sp[place]ding # (Auto) Eos # (Auto) Baso # (Auto) Abs Immat Gran (auto) Absolute Neuts (auto) Absolute Nucleated RBC Nucleated RBC % (auto) PT INR APTT Sodium 137 Potassium 3.5 Chloride 103 Carbon Dioxide 27 Anion Gap 11 L BUN 2 L Creatinine 0.53 Estim Creat Clear Calc 177.4 Estimated GFR > 60 Random Glucose 105 D Calcium 8.0 L Magnesium 1.8 Total Bilirubin Direct Bilirubin AST ALT Alkaline Phosphatase Troponin I High Sens Total Protein Albumin Lipase Urine Color Urine Appearance Urine pH Ur Specific Dawson Urine Protein Urine Glucose (UA) Urine Ketones Urine Blood Urine Nitrite Ur Leukocyte Esterase Urine RBC Urine WBC Ur Squamous Epith Cells Urine Bacteria Urine Mucus Urine Test Urine Opiates Screen Ur Barbiturates Screen Ur Phencyclidine Scrn Ur Amphetamines Screen U Benzodiazepines Scrn Urine Cocaine Screen U Marijuana (THC) Screen Ethyl Alcohol COVID-19 ([place]) COVID-19 Clin Com Discharge Plan Discharge Patient Disposition: Home, Self-Care Referrals: Keesha Rodriguez NP [Primary Care Provider] - Discharge Medications: New magnesium oxide 400 mg (241.3 mg magnesium) Tablet 400 mg PO BIDPC Qty: 10 RF: 0 omeprazole 20 mg capsule,delayed release(DR/EC) 20 mg PO DAILY Qty: 30 RF: 0 potassium chloride 10 mEq capsule, extended release 10 meq PO DAILY Qty: 5 RF: 0 Continued escitalopram oxalate [Lexapro] 20 mg Tablet 20 mg PO BEDTIME RF: 0 clonidine HCl 0.1 mg Tablet 0.1 mg PO TID PRN (Reason: Anxiety) RF: 0 norgestimate-ethinyl estradiol [Tri-Sprintec (28)] 0.18/0.215/0.25 mg-35 mcg (28) Tablet 1 tab PO DAILY RF: 0 Discharge Orders: Discharge Order (Routine); Ordered 03/04/20 Ordered By: Ghanshyam Aleman Diet: advance to usual diet Activity on Discharge: As tolerated Other Ambulatory Orders: Basic Metabolic Panel Fasting (Routine) Timeframe: 3 Days Facility: [facility] - Location: Laboratory Ordered By: Ghanshyma Aleman Liver Panel (Routine) Timeframe: 3 Days Facility: [facility] - Location: Laboratory Ordered By: Ghanshyam Aleman Visit Report Forms: Patient Portal Discharge page Care Plan Goals: Patient came to the hospital because of alcohol withdrawal, also has some gastritis probably related to alcohol. Patient was started on phenobarb and subsequently patient improved also given omeprazole for gastritis issue. Her LFTs are slightly elevated which probably related to alcohol use. In addition patient had mild borderline potassium at and hypomagnesemia: Which were repleted and seems normal and additional limited supply was given upon discharge. Patient is to follow-up with BMP, liver panel, magnesium level with PCP in within 1 week, further management outpatient as per PCP. Patient had episode idioventricular rhythm on tele which was thought to be related to electrolyte(hypomagnesemia, borderline potassium which is repleted)- seems fine on the telemetry currently. Further workup outpatient with PCP. Health Concerns: As above. Plan of Treatment: As above.
--- NOTE | 2020-03-04 12:49 | MHC.RECOVRN ---
Recovery Support Note: 25 year old female presented to [facility], ambulatory, on 03/01/20 due to abdominal pain and alcohol withdrawal. Pt admitted to [facility] due to alcohol withdrawal. T/w met with pt to discuss alcohol use. Pt reports ?7-8 100 proof nips a day? x ?about 9 months, since I had my baby.? Last drink 03/01/20. Pt currently denies cravings, denies withdrawal symptoms. Pt reports depression is what lead to use alcohol, states ?I was never like this.? Pt states ?Right now I feel good.? Pt states ?I?ve tried to stop drinking a couple times but then I get so depressed and drink again.? Pt reports in the past 9 months treatment included [facility], attending PHP/IOP, AA meetings, utilizing naltrexone through [facility], and therapy at [facility] with Ming Teague. Pt reports some avenues were helpful and would like to continue therapy, obtain [facility], and attend AA meetings on and Wednesday near home in [place]. Pt currently lives with catarina and attends weekly therapy. 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 Pt states ?my best friend Chloe is supportive. So is my sister. She is a pharmacist at [employer].? Pt states ?They only drink occasionally. They don?t use anything else.? Pt was provided with resources regarding depression and support groups as well as encouraged to attend AA meetings. Pt will see therapist, Ming, on 03/07/19. Referred to Kiana Samano NP for addiction medication consult.
[2020-03-04] MEDS: Potassium Chloride Packet 20 MEQ PACKET 40 MEQ PO (13:20)
--- NOTE | 2020-03-04 13:34 | MHC.RECOVRN ---
Pt has appointment on 03/05/20 at 1:00PM at the [facility]. Pt given information regarding the [facility]. CM and RN aware.
--- NOTE | 2020-03-04 13:39 | MHC.CM.PN ---
Pt will DC home today with resources provided by the Care Team including information of [facility] and an appt at the [facility] for tomorrow at 1300 hours.
--- NOTE | 2020-03-04 13:39 | HO.ADDICTCON ---
History of Present Illness Date of Service: 03/04/2020 Chief Complaint: ABD PAIN, ALCOHOL WITHDRAWAL Reason for Consult: med consult for AUD Requesting physician: Ghanshyam Aleman Discussed with referring provider: Yes Sources of Information: patient interviewed and chart reviewed HPI Narrative: Patient is a 25 year old female with history of depression and AUD. Currently medically admitted with alcohol withdrawal. Consult requested to assess for MAT. Pt seen in room 462, she was awake, alert, pleasant and engaged in interview. Somehwat guarded as she provided minimal responses, and required some encouragement to recall recent treatment encounters, medications, etc. She was reports she is currently drinking about 7 nips of 100 proof vodka daily. She starts in the morning before work and continues through the day. She identifies consistent anxiety as a trigger for drinking. She states her alcohol consumption became an issue about 9 months ago following the of her second child. Past Psychiatric History: Inpt: unclear if she had psychiatric admission as she says her filed for Section 12 and she was admitted here, but there are no [facility] admission records found Respite: 5 days, 2019 with N OP: [facility]- Ming Teague. PCP prescribes medications Trials: Lexapro, Clonidine (current medications) [place] [place] Medical Evaluation Reviewed: Yes Personal & Social History: Lives with her fiancee and 2 young children Reports she has DCF involvement Review of Systems Constitutional: Reports difficulty sleeping and Reports lethargy Cardiovascular: Denies syncope Denies syncope Psychiatric: Reports anxiety, Reports depression, Reports difficulty concentrating and Reports anhedonia Diagnostics Vital Signs (24Hr): Vital Signs - 24 hr 03/03/20 16:00 03/03/20 19:12 03/04/20 00:00 Temperature 96.8 F 97.2 F 98.2 F Pulse Rate 85 105 H 92 Respiratory Rate 20 218 H 18 Blood Pressure 148/88 H 147/76 H 127/66 Pulse Oximetry 98 100 96 03/04/20 04:00 03/04/20 08:00 03/04/20 11:56 Temperature 98.9 F 97.7 F 97.2 F Pulse Rate 69 75 89 Respiratory Rate 18 16 18 Blood Pressure 109/65 117/76 139/95 H Pulse Oximetry 97 98 98 Body Mass Index 33.3 Labs Results: 03/01/20 17:59 03/04/20 04:29 Labs: Laboratory Results - last 48 hr 03/02/20 03/03/20 03/03/20 19:16 05:03 07:39 Sodium 132 L 134 L Potassium 4.2 3.4 Chloride 97 97 Carbon Dioxide 21 L 24 Anion Gap 18 16 BUN 2 L D 2 L Creatinine 0.64 0.57 Estim Creat Clear Calc 146.9 164.9 Estimated GFR > 60 > 60 Random Glucose 82 64 Calcium 7.7 L 7.6 L Magnesium 1.5 L 1.8 03/04/20 04:29 Sodium 137 Potassium 3.5 Chloride 103 Carbon Dioxide 27 Anion Gap 11 L BUN 2 L Creatinine 0.53 Estim Creat Clear Calc 177.4 Estimated GFR > 60 Random Glucose 105 D Calcium 8.0 L Magnesium Imaging Radiology Impressions: ITS Impressions Chest X-Ray 03/01/20 17:31 IMPRESSION: No acute pulmonary disease. Abdomen/Pelvis CT 03/01/20 19:25 IMPRESSION: Enlarged fatty liver. The pancreas appears normal and there is no evidence to suggest pancreatitis Mental Status Exam Mental Status Exam Patient Appearance: Well Grooomed and Appropriate Patient Orientation: Person, Place, Time and Situation Level of Consciousness: Awake, Appropriate and Alert Patient Behavior: Appropriate Mood Description: Blunted Affect Description: Blunted Ability to Follow Directions: Excellent Speech Pattern: Clear Hallucinations: None Thought Process: Rumination Thought Content: positive for [place] Depressive Symptoms: Increased Anxiety, Difficulty Sleeping, Feelings of Guilt, Unhappiness, Increased Fatigue, Low Self Esteem and Difficulty Concentrating Judgement: Fair (limited insight ) Medications Medications Current Medications Generic Name Dose Route Start Last Admin Trade Name Ban PRN Reason Stop Dose Admin Acetaminophen 650 mg 03/02/20 12:02 03/02/20 19:48 Acetaminophen 325 Mg Tablet PO 650 mg Q6H PRN Administration Headache Calcium Carbonate 500 mg 03/02/20 21:00 03/04/20 08:15 Calcium Carbonate 500 Mg Tablet PO 500 mg TID ESSIE Administration Clonidine HCl 0.1 mg 03/01/20 23:07 03/03/20 20:46 Clonidine Hcl 0.1 Mg Tablet PO 0.1 mg TID PRN Administration Anxiety Protocol Escitalopram Oxalate 20 mg 03/02/20 21:00 03/03/20 20:40 Escitalopram Oxalate 20 Mg Tablet PO 20 mg BEDTIME ESSIE Administration Folic Acid 1 mg 03/01/20 23:10 03/04/20 08:16 Folic Acid 1 Mg Tablet PO 1 mg DAILY ESSIE Administration Heparin Sodium (Porcine) 5,000 unit 03/01/20 23:07 03/04/20 08:16 Heparin Sodium,Porcine 5,000 Unit/Ml Vial SUBCUT 5,000 unit Q8H ESSIE Administration Hydromorphone HCl 0.5 mg 03/02/20 02:43 Hydromorphone Hcl 0.5 Mg/0.5 Ml Syringe IVPUSH Q4H PRN Pain, Moderate (Pain Scale 4-6 Sodium Chloride 1,000 mls @ 100 mls/hr 03/01/20 23:07 03/04/20 11:08 Ns IVCONT 0 mls/hr .Q10H ESSIE Infusion Magnesium Oxide 400 mg 03/02/20 17:30 03/04/20 08:15 Magnesium Oxide 400 Mg Tablet PO 400 mg BIDPC ESSIE Administration Medication 1 each 03/01/20 19:45 No Benzodiazepines MISCELLANE DAILY ESSIE Ondansetron HCl 4 mg 03/02/20 12:01 03/03/20 05:39 Ondansetron Hcl 4 Mg/2 Ml Vial IVPUSH 4 mg Q6H PRN Administration Nausea Pantoprazole Sodium 40 mg 03/01/20 23:07 03/04/20 08:16 Pantoprazole Sodium 40 Mg/10 Ml Vial IVPUSH 40 mg BID ESSIE Administration Pharmacy Consult 1 each 03/01/20 17:37 Consult Rx Perform Med Rec MISCELLANE ONCE PRN Consult order Phenobarbital 15 mg 03/04/20 09:00 03/04/20 08:22 Phenobarbital 15 Mg Tablet PO 03/05/20 21:01 15 mg BID ESSIE Administration Phenobarbital 15 mg 03/06/20 09:00 Phenobarbital 15 Mg Tablet PO 03/07/20 09:01 DAILY ESSIE Sodium Chloride 3 ml 03/02/20 00:00 03/04/20 08:21 0.9 % Sodium Chloride Flush 3 Ml Syringe IVFLUSH Not Given QSHIFT [facility] Allergies Allergies Allergy/AdvReac Type Severity Reaction Status Date / Time No Known Allergies Allergy Verified 12/07/19 21:16 Assessment & Plan Assessment & Plan (1) Alcohol use disorder, severe, dependence: Status: Acute Code(s): F10.20 - Alcohol dependence, uncomplicated Recommendations: restart naltrexone 50mg PO recheck LFTs within a week as they were elevated at time of admission declines additional supports at this time (2) Depression: Status: Acute Code(s): F32.9 - Major depressive disorder, single episode, unspecified Recommendations: Engaged [facility] outpatient therapist PCP managing her medications for depression, hoping to see psychiatrist soon at outpt office Greater than 50% of the session was spent on counseling and/or coordination of care [facility] Past Medical History Medical History (Updated 03/04/20 @ 15:03 by Kiana Samano CNP) Alcohol abuse Anxiety Depression Post depression Tonsillectomy planned Psychiatric History: Substance Abuse History Family History Pertinent family history: Strong family history of addiction Social History Social History (Updated 03/04/20 @ 13:59 by Kiana Samano CNP) Household Members: Spouse and Children Housing: House Alcohol intake: current Alcohol intake frequency: 3 or more drinks per day Alcohol type: hard liquor Smoking Status: Former smoker Substance Use Type: Marijuana Substance Use Type Other:: denies any history of illicit substance use Within the last 12 months, any problems due to past substance use: Feeling out of control and Harm to relationships Any prior treatment program specific to substance use: Yes (PHP/IOP Naltrexone ) service: No Current occupational status: unemployed
== END 2020-03-04 14:05 | disposition home or self-care (01) | DRG 241 ==
LOC: HO.ED 20:55 → HO.EDOVER 03-02 01:34 → HO.IMC 03-02 03:12
PROVIDERS: Internal Medicine; Nurse Practitioner Family; Admitting Provider Internal Medicine; Emergency Provider Student in an Organized Health Care Education/Training Program; PCP Nurse Practitioner Family; Visit Provider Internal Medicine
DX: K29.20 Alcoholic gastritis without bleeding (principal); E83.42 Hypomagnesemia; F10.230 Alcohol dependence with withdrawal, uncomplicated; E86.0 Dehydration; I49.8 Other specified cardiac arrhythmias; K70.0 Alcoholic fatty liver; N92.1 Excessive and frequent menstruation with irregular cycle; F32.9 Major depressive disorder, single episode, unspecified; Z20.822 Contact with and (suspected) exposure to COVID-19; Z79.899 Other long term (current) drug therapy
CPT/HCPCS: 36415; 71045; 74176; 80048; 80076; 80307; 80320; 81001; 81025; 83690; 83735; 84484; 85025; 85610; 85730; 87635; 93005; 96361; 96372; 96374; 96375; 96376; 99285; 99291; J1170; J2060; J2405; J2560; J3411; J3475

== ENCOUNTER → 2020-03-07 15:12 | Outpatient (BNVA) | payer MEDICAID, SELFPAY | PROVIDERS: PCP Nurse Practitioner Family; Visit Provider Nurse Practitioner Psychiatric/Mental Health | DX: F10.20 Alcohol dependence, uncomplicated (principal); F33.1 Major depressive disorder, recurrent, moderate | CPT/HCPCS: 99212 ==

== ENCOUNTER 2020-03-09 10:54 | Outpatient (REF) | payer MEDICAID, SELFPAY ==
[2020-03-09 12:19] LABS: Alanine Aminotransferase 165 U/L (0-31); Albumin Level 4.2 g/dL (3.5-5.0); Alkaline Phosphatase 58 U/L (39-117); Anion Gap 11 (12-20); Aspartate Amino Transferase 187 U/L (5-31); Bilirubin Direct 0.3 mg/dL (0.0-0.5); Bilirubin Total 0.6 mg/dL (0.0-1.0); Blood Urea Nitrogen 7 mg/dL (9-16); Calcium 9.3 mg/dL (8.4-10.2); Carbon Dioxide 30 mmol/L (22-29); Chloride 102 mmol/L (96-108); Estimated Glomerular Filt Rate > 60; Glucose Fasting 90 mg/dL (60-99); Potassium 4.3 mmol/l (3.3-5.1); Sodium 139 mmol/L (135-145); Total Protein 6.6 g/dL (6.5-8.0)
== END 2020-03-09 10:55 | disposition home or self-care (01) ==
LOC: HO.LAB 10:54
PROVIDERS: PCP Nurse Practitioner Family; Visit Provider Internal Medicine
DX: E83.42 Hypomagnesemia (principal); F10.239 Alcohol dependence with withdrawal, unspecified
CPT/HCPCS: 36415; 80048; 80076

== ENCOUNTER → 2020-03-12 09:14 | Outpatient (REF) | payer MEDICAID, SELFPAY ==
--- NOTE | 2020-03-12 09:18 | CA_ITS ---
Transthoracic Echocardiogram Patient (Last, First, Middle): Xiomara Chilel, Gender: Female Date of : 1995 Age: 25 Procedure Date: 03/12/2020 Procedure Type: Transthoracic Echocardiogram Location: OP Height: 165.1 cm Weight: 90.72 kg BSA: 1.98 m2 Heart Rate: bpm BP: 98 / 60 mmHg Tip Printer: DSPlacido Referring MD: Pradip Corral MD Symptoms: I44.2 - Atrioventricular block, complete Study Quality: Good ECG Rhythm: Sinus Conclusions: - The left ventricular systolic function is normal. The visually estimated ejection fraction is between 60-65%. - No obvious valvular pathology seen on this study. Findings Left Ventricle Normal left ventricular cavity size. There is normal left ventricular wall thickness. The left ventricular systolic function is normal. The visually estimated ejection fraction is between 60-65%. There is no evidence of regional wall motion abnormalities. Diastolic function is normal for age. Right Ventricle Normal right ventricular cavity size and systolic function. Atria Both atria are normal in size. Aortic Valve There is a normal trileaflet aortic valve. There is no aortic valve stenosis. There is no aortic valve regurgitation. Mitral Valve The mitral valve appears normal. There is trace mitral valve regurgitation. There is no mitral valve stenosis. Pulmonic Valve The pulmonic valve was not well visualized. Tricuspid Valve Normal tricuspid valve structure. There is trace tricuspid valve regurgitation. The pulmonary artery systolic pressure is normal. Great Vessels The aortic annulus, sinuses of valsalva, and asc aorta are normal in size. Venous The inferior vena cava was not well visualized. Pericardium/Pleural There is no evidence of pericardial effusion. Prior Study Comparison No prior study available for comparison. Recommendations, Care & Conclusions No obvious valvular pathology seen on this study. Measurements 2D Linear Measurements IVSd: 1.04 0.6-0.9/0.6-1.0 cm LVIDd: 4.97 3.9-5.3/4.2-5.9 cm LVIDd Index: 2.51 2.4-3.2/2.2-3.1 cm/m2 LVIDs: 3.45 2.0-3.6 cm LVPWd: 0.91 0.7-1.1 cm Ao Root: 2.10 2.1-3.5 cm LA Diam: 3.60 2.7-3.8/3.0-4.0 cm LAIDs Index: 1.82 1.5-2.3 cm/m2 LV Mass: 216.51 67-162/88-224 g LV Mass Index: 109.35 43-95/49-115 g/m2 LVOT Diam: 1.80 3.0+(-)1.3 cm 2D Systolic Function EF 4C: 54.80 >55% Mitral Valve MV Pk E: 0.94 MV PK A: 0.38 MV Decel Time: 229.00 E/A: 2.50 E'Lateral: 14.60 E'Medial: 11.20 E/E' Med: 8.40 E/E' Lat: 6.40 PHT: 67.00 MVA PHT: 3.28 Decel Cuming: 4.11 Aortic Valve AoV Pk Joe: 1.32 AoV Pk Grad: 7.00 LVOT LVOT Pk Joe: 1.09 LVOT Mn Joe: 0.71 LVOT VTI: 0.24 LVOT Pk Grad: 5.00 LVOT Mn Grad: 3.00 LVOT Diam: 1.80 LVOT Area: 2.54 Diastolic Function MV Pk E: 0.94 MV Pk A: 0.38 E/A: 2.50 E'Medial: 11.20 E/E' Med: 8.40 E' Laterial: 14.60 E/E' Lat: 6.40 Tricuspid Valve TR Pk Joe: 2.38 TR Pk Grad: 23.00 Great Vessels Aorta Ao Root-2D: 2.10 2.0-3.7 cm Ao Asc: 2.50 2.1-3.4 cm Updated in Other Vendor System with Status of Final Pradip Corral MD electronically signed on 03/12/2020 5:33:13 PM with status of Final
== END ==
LOC: HO.CARD 09:14
PROVIDERS: Visit Provider Internal Medicine
DX: I44.2 Atrioventricular block, complete (principal)
CPT/HCPCS: 93306

== ENCOUNTER → 2020-03-14 15:55 | Outpatient (BNVA) | payer MEDICAID, SELFPAY | PROVIDERS: Visit Provider Nurse Practitioner Psychiatric/Mental Health | DX: Z13.89 Encounter for screening for other disorder (principal) | CPT/HCPCS: 99212 ==

== ENCOUNTER 2020-03-16 09:14 | Outpatient (REF) | payer MEDICAID, SELFPAY ==
[2020-03-16 10:11] LABS: Alanine Aminotransferase 108 U/L (0-31); Albumin Level 4.6 g/dL (3.5-5.0); Alkaline Phosphatase 67 U/L (39-117); Anion Gap 14 (12-20); Aspartate Amino Transferase 116 U/L (5-31); Bilirubin Direct 0.2 mg/dL (0.0-0.5); Bilirubin Total 0.5 mg/dL (0.0-1.0); Carbon Dioxide 25 mmol/L (22-29); Chloride 105 mmol/L (96-108); Potassium 4.4 mmol/L (3.3-5.1); Sodium 140 mmol/L (135-145); Total Protein 7.1 g/dL (6.5-8.0)
[2020-03-16 10:31] LABS: Ferritin 183 ng/mL (10-122)
[2020-03-18 08:09] LABS: HBS Num1 0.19 mIU/mL (0-7.99); HBc Num1 0.08 S/CO (0.00-0.79); Hepatitis B Core Antibody Nonreactive (Nonreactive); ~HepC Num1 0.06 S/CO (0.00-0.79); ~Hepatitis B Surface Antibody NONREACTIVE (Nonreactive); ~Hepatitis C Antibody Nonreactive (Nonreactive)
[2020-03-18 08:21] LABS: Hepatitis B Surface Antigen Negative (Negative)
[2020-03-18 14:33] LABS: Alpha 1 Anti-trypsin 173 mg/dL (83-199); Ceruloplasmin 40 mg/dL (18-53); Immunoglobulin G 682 mg/dL (600-1640)
[2020-03-18 14:57] LABS: Anti Nuclear Antibody Screen NEGATIVE (NEGATIVE); Transglutaminase Ab IgG 2 U/mL; Transglutaminase IgA 1 U/mL
[2020-03-20 05:35] LABS: Hepatitis A Antibody IgM 0.08 Index (0-0.79); ~Hepatitis A Antibody IgM Nonreactive (Nonreactive)
[2020-03-20 07:28] LABS: HBsAGNum1 0.13 S/CO (0.00-0.99)
[2020-03-20 20:37] LABS: Aldolase 9.5 U/L (<=8.1)
[2020-03-21 12:47] LABS: Smooth Muscle Antibody <20 U (<20)
== END 2020-03-16 09:15 | disposition home or self-care (01) ==
LOC: HO.LAB 09:14
PROVIDERS: PCP Nurse Practitioner Family; Referring Provider Nurse Practitioner Psychiatric/Mental Health; Visit Provider Internal Medicine Gastroenterology
DX: Z79.899 Other long term (current) drug therapy (principal); R79.82 Elevated C-reactive protein (CRP); K52.839 Microscopic colitis, unspecified; R79.89 Other specified abnormal findings of blood chemistry
CPT/HCPCS: 36415; 80051; 80076; 82085; 82103; 82390; 82550; 82728; 82784; 83516; 86038; 86039; 86255; 86704; 86706; 86709; 86803; 87340

== ENCOUNTER → 2020-03-21 13:24 | Outpatient (BNVA) | payer MEDICAID, SELFPAY | PROVIDERS: Visit Provider Nurse Practitioner Psychiatric/Mental Health | DX: F10.20 Alcohol dependence, uncomplicated (principal); Z79.891 Long term (current) use of opiate analgesic | CPT/HCPCS: 99212 ==

== ENCOUNTER 2020-04-06 07:13 | Emergency (ER) | payer MEDICAID, SELFPAY ==
[2020-04-06 07:26] VITALS: BP 145/103; PULSE 140; RESP 22; TEMP 36.7; O2SAT 96; BMI 27.4
--- NOTE | 2020-04-06 07:36 | ED_ITS ---
HPI - Alcohol General Chief Complaint: ETOH/Substance Use Stated Complaint: DETOX Time Seen by Provider: 04/06/20 07:36 Source: patient Mode of arrival: ambulatory Limitations: no limitations History of Present Illness HPI narrative: 25 yo female with alcoholism has been drinking heavily recently - last drink last evening now c/o vomiting and anxiety, looking for detox, no prior seizures, went to [place] about a month ago MD complaint: alcohol withdrawal Last drink: Hours (ago) (13 hours ago ) Amount of alcohol consumed: a lot Chronic alcohol use: Yes Previous visits for alcohol intoxication: Yes Recent trauma: No Associated symptoms: nausea, vomiting and tremors Treatments prior to arrival: none Related Data Home Medications Medication Instructions Recorded Confirmed clonidine HCl 0.1 mg PO TID PRN 01/03/20 03/07/20 norgestimate-ethinyl estradiol 1 tab PO DAILY 01/03/20 03/01/20 [Tri-Sprintec (28)] Previous Rx's Medication Instructions Recorded magnesium oxide 400 mg PO BIDPC #10 tab 03/04/20 naltrexone 50 mg PO DAILY #30 tab 03/04/20 omeprazole 20 mg PO DAILY #30 cap 03/04/20 potassium chloride 10 meq PO DAILY #5 cap 03/04/20 naltrexone microspheres 380 mg 380 mg IM Q4W #1 ea 03/07/20 intramuscular suspension,extended release sertraline 50 mg tablet 50 mg PO DAILY #30 tab 03/07/20 chlordiazepoxide HCl 50 mg PO Q4H PRN #20 cap 04/06/20 magnesium oxide 400 mg PO DAILY 7 Days #7 tab 04/06/20 ondansetron 4 mg PO Q8H PRN #20 tab 04/06/20 Allergies Allergy/AdvReac Type Severity Reaction Status Date / Time No Known Allergies Allergy Verified 12/07/19 21:16 Review of Systems Review of Systems: Constitutional : No Weight loss, No Fever, No Chills ENT/Mouth : No sore throat, No Rhinorrhea Eyes: No Swelling, No Redness Cardiovascular : No Chest Pain, No SOB, NoEdema Respiratory : No Cough, No Sputum, No Wheezing Gastrointestinal : Positive Nausea, Positive Vomiting, no Diarrhea, positive abdominal Pain, No Hematochezia, No Melena Genitourinary : No Dysuria, No Urinary Frequency, No Hematuria, No Urgency Musculoskeletal : No joint pain, No Myalgias, No Joint Swelling Skin : No Skin Lesions, No rash Neuro : pos Weakness, No Numbness, No Dizziness, No Headache Psych : pos Anxiety/Panic, No Depression Heme/Lymph: No Bruising, No Lymphadenopathy Endocrine : No Polyuria, No Polydipsia All other systems reviewed and are negative. [facility] Past Medical History Attestation statement: The following information was validated with the patient. Medical History Alcohol abuse Anxiety Depression Post depression Tonsillectomy planned Social History Social History Household Members: Spouse and Children Housing: House Alcohol intake: current Alcohol intake frequency: 3 or more drinks per day Alcohol type: hard liquor Smoking Status: Never smoker Use of substances other than those prescribed or required for medical reasons: No Substance Use Type: Marijuana Advance Directives: No Advance Directives Information Provided: No service: No Current occupational status: unemployed Physical Exam Vital Signs: Vital Signs: Last Vital Signs Temp 98.1 F 04/06/20 07:26 Pulse 130 H 04/06/20 10:47 Resp 18 04/06/20 10:47 BP 122/74 04/06/20 10:47 Pulse Ox 96 04/06/20 10:47 Body Mass Index 27.4 Appearance: Alert. Oriented X3. Anxious active vomiting - (clear watery) mild acute distress. Eyes: Pupils equal, round and reactive to light. ENT: Pharynx dry MM Neck: Normal inspection. Neck supple. CVS: tachycardicheart rate and rhythm. Pulses normal. Respiratory: No respiratory distress. Breath sounds normal. Abdomen: Soft and nontender. Skin: Skin warm and dry. Normal skin color. Normal skin turgor. Extremities: No lower extremity edema. No calf ttp Neuro: Oriented X 3. No motor deficit. No sensory deficit. tremors, steady gait Course Course Course Narrative: patient feeling better at this time HR 96, BP was 120 tolerating PO, CARE team involved to help with detox patient plans to go home, feels she can manage getting detox at home will start on zofran, librium and magnesium MDM - Alcohol MDM Narrative Medical decision making narrative: 25 yo female with alcoholism here with anxiety, tremors, n/v last drink yesterday 6pm - at this time will need labs, IVF x 2L, ativan 2mg IV - if she can be medically cleared in ED will refer to [facility] for detox. Lab Data Result diagrams: 04/06/20 07:57 04/06/20 07:57 Labs: Lab Results 04/06/20 04/06/20 04/06/20 Range/Units 07:57 07:57 07:57 WBC 9.7 (4.8-10.8) X10*3/uL RBC 5.27 (4.20-5.50) X10*6/uL Hgb 16.9 H (12.0-16.0) g/dl Hct 49.3 H (37-47) % MCV 93.5 (80-98) fL MCH 32.1 (27.0-33.0) pg MCHC 34.3 (31.0-35.0) g/dl RDW 12.6 (11.0-16.0) % Plt Count 321 D (160-400) X10*3/uL MPV 8.7 L (9.4-12.3) fL Immature Gran % (Auto) 0.4 (0.0-0.4) % Neut % (Auto) 78.3 H (45-73) % Lymph % (Auto) 14.7 L (20-40) % Stanton % (Auto) 5.7 (2-11) % Eos % (Auto) 0.4 (0-4) % Baso % (Auto) 0.5 (0-2) % Lymph # (Auto) 1.4 (1.2-4.9) X10*3/uL Stanton # (Auto) 0.6 (0.1-1.2) X10*3/uL Eos # (Auto) 0.0 (0.0-0.4) X10*3/uL Baso # (Auto) 0.1 (0.0-0.2) X10*3/uL Abs Immat Gran (auto) 0.04 H (0.00-0.03) X10*3/uL Absolute Neuts (auto) 7.6 (2.0-8.3) X10*3/uL Absolute Nucleated RBC 0.000 (0.0-0.012) X10*3/uL Nucleated RBC % (auto) 0.0 (0.0-0.2) /100WBC PT 14.2 H (10.8-13.0) SEC INR 1.2 H (0.9-1.1) APTT 29.2 (24.1-38.0) SEC Sodium 141 (135-145) mmol/L Potassium 4.0 (3.3-5.1) mmol/L Chloride 103 (96-108) mmol/L Carbon Dioxide 18 L (22-29) mmol/L Anion Gap 24 H (12-20) BUN 8 L (9-16) mg/dL Creatinine 0.76 (0.5-1.4) mg/dL Estim Creat Clear Calc 112.5 Estimated GFR > 60 Random Glucose 129 H (60-115) mg/dL Calcium 9.4 (8.4-10.2) mg/dL Magnesium 1.4 L* (1.6-2.6) mg/dL Total Bilirubin 1.1 H (0.0-1.0) mg/dL Direct Bilirubin 0.4 (0.0-0.5) mg/dL AST 49 H D (5-31) U/L ALT 46 H (0-31) U/L Alkaline Phosphatase 79 (39-117) U/L Total Protein 8.0 (6.5-8.0) g/dL Albumin 4.9 (3.5-5.0) g/dL Lipase 16 (8-78) U/L Beta HCG, Quant < 2 mIU/mL Ethyl Alcohol mg/dL COVID-19 ([place]) (Negative) COVID-19 Clin Com 04/06/20 04/06/20 Range/Units 07:57 07:57 WBC (4.8-10.8) X10*3/uL RBC (4.20-5.50) X10*6/uL Hgb (12.0-16.0) g/dl Hct (37-47) % MCV (80-98) fL MCH (27.0-33.0) pg MCHC (31.0-35.0) g/dl RDW (11.0-16.0) % Plt Count (160-400) X10*3/uL MPV (9.4-12.3) fL Immature Gran % (Auto) (0.0-0.4) % Neut % (Auto) (45-73) % Lymph % (Auto) (20-40) % Stanton % (Auto) (2-11) % Eos % (Auto) (0-4) % Baso % (Auto) (0-2) % Lymph # (Auto) (1.2-4.9) X10*3/uL Stanton # (Auto) (0.1-1.2) X10*3/uL Eos # (Auto) (0.0-0.4) X10*3/uL Baso # (Auto) (0.0-0.2) X10*3/uL Abs Immat Gran (auto) (0.00-0.03) X10*3/uL Absolute Neuts (auto) (2.0-8.3) X10*3/uL Absolute Nucleated RBC (0.0-0.012) X10*3/uL Nucleated RBC % (auto) (0.0-0.2) /100WBC PT (10.8-13.0) SEC INR (0.9-1.1) APTT (24.1-38.0) SEC Sodium (135-145) mmol/L Potassium (3.3-5.1) mmol/L Chloride (96-108) mmol/L Carbon Dioxide (22-29) mmol/L Anion Gap (12-20) BUN (9-16) mg/dL Creatinine (0.5-1.4) mg/dL Estim Creat Clear Calc Estimated GFR Random Glucose (60-115) mg/dL Calcium (8.4-10.2) mg/dL Magnesium (1.6-2.6) mg/dL Total Bilirubin (0.0-1.0) mg/dL Direct Bilirubin (0.0-0.5) mg/dL AST (5-31) U/L ALT (0-31) U/L Alkaline Phosphatase (39-117) U/L Total Protein (6.5-8.0) g/dL Albumin (3.5-5.0) g/dL Lipase (8-78) U/L Beta HCG, Quant mIU/mL Ethyl Alcohol 12 mg/dL COVID-19 ([facility]) Negative (Negative) COVID-19 Clin Com See Note ECG Data Attestation: I personally reviewed and interpreted this ECG as follows: ECG interpretation date: 04/06/20 ECG interpretation time: 12:11 Interpretation: Rate: 104 Rhythm: sinus tachycardia Gillespie: normal Normal P waves. Normal BEN. Normal QRS complex. ST T wave : normal qTC: normal prior studies: no acute ischemia The study has been interpreted contemporaneously by me. . Critical Care Time Critical Care Time Critical Care Time: Yes Total Critical Care Time: 60 Attestation: I attest to this time spent taking care of the patient Discharge Plan Discharge Clinical Impression: Hypomagnesemia, Alcohol withdrawal Patient Disposition: Home, Self-Care Instructions: Alcohol Withdrawal (ED), Hypomagnesemia (ED) Additional Instructions: return to ED for any worsening symptoms or concerns go to detox if a bed opens Prescriptions: New ondansetron 4 mg tablet,disintegrating 4 mg PO Q8H PRN (Reason: nausea and vomiting) Qty: 20 RF: 0 chlordiazepoxide HCl 25 mg capsule 50 mg PO Q4H PRN (Reason: alcohol withdrawal) Qty: 20 RF: 0 magnesium oxide 400 mg (241.3 mg magnesium) tablet 400 mg PO DAILY 7 Days Qty: 7 RF: 0 No Action clonidine HCl 0.1 mg Tablet 0.1 mg PO TID PRN (Reason: Anxiety) RF: 0 norgestimate-ethinyl estradiol [Tri-Sprintec (28)] 0.18/0.215/0.25 mg-35 mcg (28) Tablet 1 tab PO DAILY RF: 0 magnesium oxide 400 mg (241.3 mg magnesium) Tablet 400 mg PO BIDPC Qty: 10 RF: 0 omeprazole 20 mg capsule,delayed release(DR/EC) 20 mg PO DAILY Qty: 30 RF: 0 potassium chloride 10 mEq capsule, extended release 10 meq PO DAILY Qty: 5 RF: 0 naltrexone 50 mg tablet 50 mg PO DAILY Qty: 30 RF: 0 sertraline 50 mg tablet 50 mg PO DAILY Qty: 30 RF: 1 Vivitrol 380 mg suspension,extended rel recon 380 mg IM Q4W Qty: 1 RF: 5 Stand Alone Forms: Work/School Release
[2020-04-06 08:02] LABS: MANUAL DIFF FLAG NO
[2020-04-06] MEDS: 0.9 % Sodium Chloride 1,000 ML 999 ML IVCONT ×3 (08:03→10:58)
[2020-04-06] MEDS: LORazepam 2 MG/ML VIAL IVPUSH (08:03)
[2020-04-06] MEDS: Magnesium Sulfate/H2O 2 GM/50 ML PIGGYBACK IV (08:03)
[2020-04-06] MEDS: ondansetron HCL 4 MG/2 ML VIAL IVPUSH (08:03)
[2020-04-06 08:09] LABS: Basophils Absolute Auto 0.1 X10*3/uL (0.0-0.2); Basophils Percent Auto 0.5 % (0-2); Eosinophils Percent Auto 0.4 % (0-4); Hematocrit 49.3 % (37-47); Hemoglobin 16.9 g/dl (12.0-16.0); Imm Gran Abs Auto 0.04 X10*3/uL (0.00-0.03); Imm Gran Pct Auto 0.4 % (0.0-0.4); Lymphocytes Absolute Auto 1.4 X10*3/uL (1.2-4.9); Lymphocytes Percent Auto 14.7 % (20-40); Mean Corpuscular HGB Conc 34.3 g/dl (31.0-35.0); Mean Corpuscular Hemoglobin 32.1 pg (27.0-33.0); Mean Corpuscular Volume 93.5 fL (80-98); Mean Platelet Volume 8.7 fL (9.4-12.3); Monocytes Absolute Auto 0.6 X10*3/uL (0.1-1.2); Monocytes Percent Auto 5.7 % (2-11); Neutrophils Absolute Auto 7.6 X10*3/uL (2.0-8.3); Neutrophils Percent Auto 78.3 % (45-73); Platelet Count 321 X10*3/uL (160-400); Red Blood Count 5.27 X10*6/uL (4.20-5.50); Red Cell Distribution Width 12.6 % (11.0-16.0); White Blood Count 9.7 X10*3/uL (4.8-10.8)
[2020-04-06 08:12] LABS: INTERNATIONAL NORM RATIO 1.2 (0.9-1.1); Prothrombin Time 14.2 SEC (10.8-13.0)
[2020-04-06 08:14] LABS: Partial Thromboplastin Time 29.2 SEC (24.1-38.0)
[2020-04-06 08:22] LABS: COVID-19 Test Negative (Negative)
[2020-04-06 08:34] LABS: Ethanol 12 mg/dL
[2020-04-06 08:43] LABS: Alanine Aminotransferase 46 U/L (0-31); Albumin Level 4.9 g/dL (3.5-5.0); Alkaline Phosphatase 79 U/L (39-117); Anion Gap 24 (12-20); Aspartate Amino Transferase 49 U/L (5-31); Bilirubin Direct 0.4 mg/dL (0.0-0.5); Bilirubin Total 1.1 mg/dL (0.0-1.0); Blood Urea Nitrogen 8 mg/dL (9-16); Calcium 9.4 mg/dL (8.4-10.2); Carbon Dioxide 18 mmol/L (22-29); Chloride 103 mmol/L (96-108); Creatinine Clr Calc Pharmacy 112.5; Estimated Glomerular Filt Rate > 60; Glucose Random 129 mg/dL (60-115); Lipase 16 U/L (8-78); Magnesium 1.4 mg/dL (1.6-2.6); Sodium 141 mmol/L (135-145)
[2020-04-06 08:45] LABS: HCG Quantitative < 2 mIU/mL
[2020-04-06] MEDS: Dextrose 5 % and 0.9 % NaCl 1,000 ML 100 ML IVCONT (09:32)
[2020-04-06] MEDS: chlordiazePOXIDE HCl 25 MG CAPSULE 50 MG PO (10:05)
--- NOTE | 2020-04-06 10:35 | MHC.CARE ---
Pt is here for ETOH and being treated with fluids and supportive meds. Pt stated that she was thinking about detox again at [facility] but preferred to self refer. Pt reported feeling sick to her stomach currently and all am.
[2020-04-06 10:47] VITALS: BP 122/74; PULSE 130; RESP 18; O2SAT 96
--- NOTE | 2020-04-06 11:51 | ECG_ITS ---
Test Reason : ABNORMAL VS Blood Pressure : / mmHG Vent. Rate : 104 BPM Atrial Rate : 104 BPM P-R Int : 140 ms QRS Dur : 072 ms QT Int : 338 ms P-R-T Axes : 033 031 014 degrees QTc Int : 444 ms Sinus tachycardia Nonspecific T wave changes Otherwise normal ECG When compared with ECG of 02-MAR-2020 21:33, QRS duration has decreased ST no longer depressed in Inferior leads ST no longer depressed in Anterolateral leads Referred By: Olga Santiago Electronically Signed By:Mynor Robb
== END 2020-04-06 13:02 | disposition home or self-care (01) ==
PROVIDERS: Emergency Provider Emergency Medicine; PCP Nurse Practitioner Family
DX: F10.230 Alcohol dependence with withdrawal, uncomplicated (principal); Y90.0 Blood alcohol level of less than 20 mg/100 ml; E83.42 Hypomagnesemia; Z20.822 Contact with and (suspected) exposure to COVID-19
CPT/HCPCS: 36415; 80048; 80076; 80320; 83690; 83735; 84702; 85025; 85610; 85730; 87635; 93005; 96365; 96366; 96367; 96375; 99284; 99291; J2060; J2405; J3475

== ENCOUNTER → 2020-04-23 08:29 | Outpatient (BNVA) | payer MEDICAID, SELFPAY | PROVIDERS: Visit Provider Internal Medicine Gastroenterology ==

== ENCOUNTER → 2020-05-16 15:23 | Outpatient (BNVA) | payer MEDICAID, SELFPAY | PROVIDERS: Visit Provider Nurse Practitioner Psychiatric/Mental Health | DX: F10.20 Alcohol dependence, uncomplicated (principal) | CPT/HCPCS: 99212 ==

== ENCOUNTER → 2020-06-13 15:57 | Outpatient (BNVA) | payer MEDICAID, SELFPAY | PROVIDERS: Visit Provider Nurse Practitioner Psychiatric/Mental Health ==

== ENCOUNTER → 2020-07-04 16:00 | Outpatient (BNVA) | payer MEDICAID, SELFPAY | PROVIDERS: Visit Provider Nurse Practitioner Psychiatric/Mental Health ==

== ENCOUNTER → 2020-07-16 09:47 | Outpatient (BNVA) | payer MEDICAID, SELFPAY | PROVIDERS: Visit Provider Nurse Practitioner Psychiatric/Mental Health | DX: F10.20 Alcohol dependence, uncomplicated (principal); Z51.81 Encounter for therapeutic drug level monitoring | CPT/HCPCS: 80305; 96372; 99211 ==

== ENCOUNTER → 2020-08-01 11:40 | Outpatient (BNVA) | payer MEDICAID, SELFPAY | PROVIDERS: PCP Nurse Practitioner Family; Visit Provider Nurse Practitioner Psychiatric/Mental Health ==

== ENCOUNTER → 2020-08-08 15:35 | Outpatient (BNVA) | payer MEDICAID, SELFPAY | PROVIDERS: Visit Provider Nurse Practitioner Psychiatric/Mental Health | DX: F10.20 Alcohol dependence, uncomplicated (principal); Z51.81 Encounter for therapeutic drug level monitoring; Z32.02 Encounter for pregnancy test, result negative | CPT/HCPCS: 80305; 81025; 96372; 99211 ==

== ENCOUNTER → 2020-09-09 15:40 | Outpatient (BNVA) | payer MEDICAID, SELFPAY | PROVIDERS: Visit Provider Nurse Practitioner Psychiatric/Mental Health | DX: F10.20 Alcohol dependence, uncomplicated (principal) | CPT/HCPCS: 80305; 81025; 96372; 99211 ==

== ENCOUNTER → 2020-11-21 14:13 | Outpatient (BNVA) | payer MEDICAID, SELFPAY | PROVIDERS: PCP Nurse Practitioner Family; Visit Provider Nurse Practitioner Psychiatric/Mental Health | DX: F10.20 Alcohol dependence, uncomplicated (principal) | CPT/HCPCS: 99212 ==

== ENCOUNTER 2020-11-23 10:38 | Outpatient (REF) | payer MEDICAID, SELFPAY ==
[2020-11-23 11:52] LABS: Alanine Aminotransferase 23 U/L (0-31); Albumin Level 4.4 g/dL (3.5-5.0); Alkaline Phosphatase 80 U/L (39-117); Anion Gap 12 (12-20); Aspartate Amino Transferase 20 U/L (5-31); Bilirubin Total 0.3 mg/dL (0.0-1.0); Blood Urea Nitrogen 10 mg/dL (9-16); Carbon Dioxide 25 mmol/L (22-29); Chloride 107 mmol/L (96-108); Estimated Glomerular Filt Rate > 60; Glucose Random 94 mg/dL (60-115); Potassium 4.5 mmol/L (3.3-5.1); Sodium 139 mmol/L (135-145); Total Protein 6.9 g/dL (6.5-8.0)
== END 2020-11-23 10:39 | disposition home or self-care (01) ==
LOC: HO.LAB 10:38
PROVIDERS: PCP Nurse Practitioner Family; Visit Provider Nurse Practitioner Psychiatric/Mental Health
DX: F10.20 Alcohol dependence, uncomplicated (principal)
CPT/HCPCS: 36415; 80053

== ENCOUNTER → 2020-11-28 15:15 | Outpatient (BNVA) | payer MEDICAID, SELFPAY | PROVIDERS: Visit Provider Nurse Practitioner Psychiatric/Mental Health | DX: Z51.81 Encounter for therapeutic drug level monitoring (principal); F10.20 Alcohol dependence, uncomplicated; Z32.02 Encounter for pregnancy test, result negative | CPT/HCPCS: 80305; 96372; 99212; J2315 ==

== ENCOUNTER → 2020-12-26 13:34 | Outpatient (BNVA) | payer MEDICAID, SELFPAY | PROVIDERS: Visit Provider Nurse Practitioner Psychiatric/Mental Health | DX: Z51.81 Encounter for therapeutic drug level monitoring (principal); F10.20 Alcohol dependence, uncomplicated | CPT/HCPCS: 80305; 81025; 96372; 99212; J2315 ==

== ENCOUNTER → 2021-01-23 10:18 | Outpatient (BNVA) | payer MEDICAID, SELFPAY | PROVIDERS: Visit Provider Nurse Practitioner Psychiatric/Mental Health | DX: F10.20 Alcohol dependence, uncomplicated (principal); F32.9 Major depressive disorder, single episode, unspecified | CPT/HCPCS: 80305; 81025; 96372; 99212 ==

== ENCOUNTER → 2021-02-20 10:15 | Outpatient (BNVA) | payer MEDICAID, SELFPAY | PROVIDERS: Visit Provider Nurse Practitioner Psychiatric/Mental Health | DX: Z51.81 Encounter for therapeutic drug level monitoring (principal); F10.20 Alcohol dependence, uncomplicated; F32.9 Major depressive disorder, single episode, unspecified | CPT/HCPCS: 80305; 81025; 96372; 99212; J2315 ==

== ENCOUNTER → 2021-03-20 10:27 | Outpatient (BNVA) | payer MEDICAID, SELFPAY | PROVIDERS: Visit Provider Nurse Practitioner Psychiatric/Mental Health | DX: Z51.81 Encounter for therapeutic drug level monitoring (principal); F10.20 Alcohol dependence, uncomplicated; F32.9 Major depressive disorder, single episode, unspecified | CPT/HCPCS: 80305; 81025; 96372; 99212 ==

== ENCOUNTER → 2021-04-17 10:14 | Outpatient (BNVA) | payer MEDICAID, SELFPAY | PROVIDERS: Visit Provider Nurse Practitioner Psychiatric/Mental Health | DX: F10.20 Alcohol dependence, uncomplicated (principal); F32.9 Major depressive disorder, single episode, unspecified | CPT/HCPCS: 80305; 96372; 99212 ==

== ENCOUNTER → 2021-05-15 10:29 | Outpatient (BNVA) | payer MEDICAID, SELFPAY | PROVIDERS: Visit Provider Nurse Practitioner Psychiatric/Mental Health | DX: F10.20 Alcohol dependence, uncomplicated (principal); F32.9 Major depressive disorder, single episode, unspecified; Z51.81 Encounter for therapeutic drug level monitoring; Z79.899 Other long term (current) drug therapy | CPT/HCPCS: 80305; 81025; 96372; 99212 ==

== ENCOUNTER 2021-05-18 14:07 | Emergency (ER) | payer MEDICAID, SELFPAY ==
--- NOTE | ~2021-05-18 | US_ITS ---
EXAMINATION: US PELVIC OVARIAN DOPPLER US PELVIC AND TRANSVAGINAL CLINICAL INFORMATION: Right lower quadrant pain with question of ovarian torsion. COMPARISON: None TECHNIQUE: Ultrasound of the pelvis is performed using both transabdominal and transvaginal transducers along with Doppler. Transvaginal imaging is performed due to inadequate visualization transabdominally. FINDINGS: Uterus: The uterus is anteverted and measures 8.1 x 3.6 x 5.0 cm for a volume of 76 mL. The double wall endometrial thickness is 1.1 mm. The uterus is smooth in contour and has normal myometrial echogenicity. No visible fibroid. Adnexa: Both ovaries are visualized. There is normal color flow to the adnexa. There is no ovarian torsion. There is no pelvic ascites or fluid collection. Right ovary measures 2.9 x 1.8 x 1.3 cm for a volume of 3.6 mL and appears normal. Left ovary measures 2.8 x 1.1 x 0.9 cm for a volume of 1.5 mL and appears normal. US/US pelvic ovarian doppler IMPRESSION: Negative study. No evidence of ovarian torsion.
--- NOTE | ~2021-05-18 | CT_ITS ---
EXAMINATION: CT ABDOMEN AND PELVIS WITH CONTRAST CLINICAL INFORMATION: Right lower quadrant pain COMPARISON: 03/01/2020 TECHNIQUE: Multidetector volumetric images were obtained from the superior aspect of the liver through the pubic symphysis following administration 85 mL of Omnipaque 350 intravenous contrast. Sagittal and coronal reformatted images were obtained on the technologist's workstation. Oral contrast: No This CT examination was performed using dose optimization techniques as appropriate, variously including the following: *Automated exposure control *Adjustment of mA and/or kV according to patient size (this includes techniques or standardized protocols for targeted exams where dose is matched to indication/reason for exam; i.e. extremities or head) *Use of iterative reconstruction technique DLP: 720 mGy-cm FINDINGS: LUNG BASES: The visualized lung bases are unremarkable. LIVER, GALLBLADDER, AND BILIARY TREE: The liver is normal in size, shape, and attenuation. No focal hepatic lesion or biliary ductal dilatation is present. The gallbladder is unremarkable with no evidence of radiopaque gallstones, gallbladder wall thickening, or obvious pericholecystic inflammatory changes. PANCREAS: Unremarkable. SPLEEN: Unremarkable. ADRENAL GLANDS: Unremarkable. KIDNEYS AND URETERS: The kidneys are normal in size, shape, and attenuation. No hydronephrosis, hydroureter, or calculi seen. No perinephric stranding. BLADDER: Unremarkable. GASTROINTESTINAL TRACT: The small and large bowel are unremarkable. The appendix is unremarkable. ABDOMINAL WALL: No significant hernia is appreciated. LYMPH NODES: Normal. VASCULAR: Unremarkable. PELVIC VISCERA: Unremarkable. OSSEOUS STRUCTURES: Unremarkable. CT/CT abdomen pelvis w con IMPRESSION: No significant abnormality. Normal retrocecal appendix. Fleischner guidelines were followed.
--- NOTE | ~2021-05-18 | US_ITS ---
EXAMINATION: US PELVIC OVARIAN DOPPLER US PELVIC AND TRANSVAGINAL CLINICAL INFORMATION: Right lower quadrant pain with question of ovarian torsion. COMPARISON: None TECHNIQUE: Ultrasound of the pelvis is performed using both transabdominal and transvaginal transducers along with Doppler. Transvaginal imaging is performed due to inadequate visualization transabdominally. FINDINGS: Uterus: The uterus is anteverted and measures 8.1 x 3.6 x 5.0 cm for a volume of 76 mL. The double wall endometrial thickness is 1.1 mm. The uterus is smooth in contour and has normal myometrial echogenicity. No visible fibroid. Adnexa: Both ovaries are visualized. There is normal color flow to the adnexa. There is no ovarian torsion. There is no pelvic ascites or fluid collection. Right ovary measures 2.9 x 1.8 x 1.3 cm for a volume of 3.6 mL and appears normal. Left ovary measures 2.8 x 1.1 x 0.9 cm for a volume of 1.5 mL and appears normal. US/US pelvic and transvaginal IMPRESSION: Negative study. No evidence of ovarian torsion.
[2021-05-18 14:34] VITALS: BP 112/64; PULSE 74; RESP 18; O2SAT 97; BMI 33.3
[2021-05-18 16:22] LABS: MANUAL DIFF FLAG NO
[2021-05-18 16:24] LABS: Basophils Percent Auto 0.4 % (0-2); Eosinophils Absolute Auto 0.1 X10*3/uL (0.0-0.4); Eosinophils Percent Auto 0.7 % (0-4); Hematocrit 44.1 % (37.0-47.0); Hemoglobin 14.5 g/dl (12.0-16.0); Imm Gran Abs Auto 0.01 X10*3/uL (0.00-0.03); Imm Gran Pct Auto 0.1 % (0.0-0.4); Lymphocytes Absolute Auto 1.5 X10*3/uL (1.2-4.9); Lymphocytes Percent Auto 18.1 % (20-40); Mean Corpuscular HGB Conc 32.9 g/dl (31.0-35.0); Mean Corpuscular Hemoglobin 28.8 pg (27.0-33.0); Mean Corpuscular Volume 87.5 fL (80.0-98.0); Mean Platelet Volume 8.8 fL (9.4-12.3); Monocytes Absolute Auto 0.5 X10*3/uL (0.1-1.2); Monocytes Percent Auto 5.7 % (2-11); Neutrophils Absolute Auto 6.1 x10*3/uL (2.0-8.3); Platelet Count 297 X10*3/uL (160-400); Red Blood Count 5.04 X10*6/uL (4.20-5.50); Red Cell Distribution Width 13.8 % (11.0-16.0); White Blood Count 8.1 X10*3/uL (4.8-10.8)
[2021-05-18 16:44] LABS: Alanine Aminotransferase 16 U/L (0-31); Albumin Level 4.5 g/dL (3.5-5.0); Alkaline Phosphatase 83 U/L (39-117); Anion Gap 13 (12-20); Aspartate Amino Transferase 16 U/L (5-31); Bilirubin Total 0.6 mg/dL (0.0-1.0); Blood Urea Nitrogen 7 mg/dL (9-16); Calcium 9.7 mg/dL (8.4-10.2); Carbon Dioxide 26 mmol/L (22-29); Chloride 104 mmol/L (96-108); Creatinine Clr Calc Pharmacy 135.1; Estimated Glomerular Filt Rate > 60; Glucose Random 100 mg/dL (60-115); Potassium 4.6 mmol/L (3.3-5.1); Sodium 138 mmol/L (135-145); Total Protein 7.2 g/dL (6.5-8.0)
--- NOTE | 2021-05-18 18:27 | ED.GENADULT ---
HPI - General Adult General Chief complaint: Nausea/Vomiting/Diarrhea Stated complaint: r sided abd pain Time Seen by Provider: 05/18/21 18:23 Source: patient Mode of arrival: ambulatory Limitations: no limitations History of Present Illness HPI narrative: this is a 26-year-old female past medical history significant for anxiety, depression, idioventricular rhythm presenting to the emergency department with 2 days of right lower quadrant pain, nausea, vomiting, poor p.o. intake. Patient tells me that she has this burning / pain in the right lower quadrant. She reports the pain is intermittent severe in nature. She tells me this pain awoke her from her sleep at around 03:00, when she woke up with this pain she had episodes of nausea and vomiting. She tells me that the pain stays in the right lower quadrant and is free of radiation. She has no abdominal surgeries. She denies changes in urination. She denies vaginal discharge. Also denies pain with sexual intercourse. Patient denies chest pain, fevers, chills, dizziness, weakness, shortness of breath. Onset (ago): day(s) (2) Location: abdomen Radiation: non-radiation Severity: severe Quality: burning and aching Pain Consistency: constant Relieving factors: none Exacerbating factors: none Associated symptoms: denies other symptoms Treatments prior to arrival: none Related Data Home Medications Medication Instructions Recorded Confirmed clonidine HCl 0.1 mg tablet 0.1 mg PO TID PRN 01/03/20 01/23/21 L norgest/E estradiol-E estrad 1 tab PO DAILY 04/23/20 01/23/21 0.15 mg-30 mcg (84)/10 mcg(7) tabs,3mos (Simpesse) Previous Rx's Medication Instructions Recorded omeprazole 20 mg capsule,delayed 20 mg PO DAILY #30 cap 03/04/20 release naltrexone microspheres 380 mg 380 mg IM Q4W #1 ea 02/20/21 intramuscular suspension,extended release (Vivitrol) sertraline 100 mg tablet 100 mg PO DAILY #30 tab 02/20/21 ondansetron 4 mg disintegrating 4 mg PO ONCE PRN #10 tab 05/18/21 tablet Allergies Allergy/AdvReac Type Severity Reaction Status Date / Time No Known Allergies Allergy Verified 05/18/21 14:38 Review of Systems Review of Systems: Constitutional : No Weight loss, No Fever, No Chills, No Fatigue, No Malaise ENT/Mouth : No sore throat, No Rhinorrhea Eyes: No Eye Pain, No Swelling, No Redness Cardiovascular : No Chest Pain, No SOB, No Dyspnea on Exertion, No Orthopnea, No Edema, No Palpitations Respiratory : No Cough, No Sputum, No Wheezing Gastrointestinal : + Nausea, + Vomiting, No Diarrhea, No Constipation, + abdominal Pain, No Hematochezia, No Melena Genitourinary : No Dysuria, No Urinary Frequency, No Hematuria, Musculoskeletal : No joint pain, No Myalgias, No Joint Swelling Skin : No Skin Lesions, No rash Neuro : No Weakness, No Numbness, No Dizziness, No Headache Psych : No Anxiety/Panic, No Depression All other systems reviewed and are negative Yes all other systems are reviewed and are negative [facility] Past Medical History Attestation statement: The following information was validated with the patient. Source: old records reviewed and nursing notes reviewed Medical History Alcohol abuse Alcohol withdrawal Anxiety Depression Post depression Tonsillectomy planned Family History Family History Maternal Grandmother Breast cancer Social History Social History Household Members: Spouse and Children Housing: House Do you presently have visiting nurse or other home services: No Alcohol intake: never Advance Directives: No Advance Directives Information Provided: No Patient : No service: No Current occupational status: employed Current occupation: [employer] Physical Exam ED Vital Signs: Vital Signs - 24 hr 05/18/21 14:34 05/18/21 21:32 05/18/21 23:41 Temperature 98.8 F 98.2 F Pulse Rate 74 59 69 Respiratory Rate 18 16 17 Blood Pressure 112/64 113/65 130/80 Pulse Oximetry 97 95 97 BMI result Body Mass Index 33.3 VSS Appearance: Alert.? Oriented X3.? No acute distress.? Head: Normocephalic, atraumatic, no step-offs or deformities Eyes: Pupils equal, round and reactive to light.? ENT: Pharynx normal.? Neck: Normal inspection.? Neck supple.? CVS: Normal heart rate and rhythm.? Pulses normal.? Respiratory: No respiratory distress.? Breath sounds normal.? Abdomen: Soft and + tenderness RLQ. Negative psoas and obturator? Skin: Skin warm and dry.? Normal skin color.? Normal skin turgor.? Extremities: No lower extremity edema.? No calf ttp. 5/5 strength to bilateral upper and lower extremities Back: No midline tenderness, no C-spine tenderness, full range of motion, no CVA tenderness bilaterally Neuro: Oriented X 3.? No motor deficit.? No sensory deficit. CN 2-12 intact Course Reevaluation(s) Reevaluation #1: Patient's CBC within normal limits. Chemistry with no acute electrolyte abnormalities. Life his within normal limits. HCG negative. CT with no acute findings a retrocecal appendix is noted however normal. Doppler ultrasound negative, no evidence of torsion. Urine is clean. Upon re-evaluation patient no longer has tenderness the right lower quadrant after administration of Toradol. She tells me she is feeling better. No longer reporting nausea or vomiting. At this time patient will be discharged home I will give her information for GI. Advised her to return with new or worsening symptoms. Outlined worrisome signs and symptoms on discharge. Comfortable discharge home Time: 00:21 Medical Decision Making [facility] Narrative Medical decision making narrative: 1830 26 yo f pmhx anxiety, depression, idioventricular rythem, mdd presents with N/V and RLQ abdominal pain X2 days PE w/ pain w/ palpation to rlq. Normal active bowel sounds. Soft non-tender non distended. RRR. Lungs clear. Neuro nonfocal Plan- labs, UA, CT and US of ovaries to r/o torsion Will rule out torsion, cysts, appendicits, uti Medical Records Medical records reviewed: Yes I reviewed the patient's medical records. Lab Data Lab results reviewed: Yes I reviewed the patient's lab results. Result diagrams: 05/18/21 16:16 05/18/21 16:16 Labs: Lab Results 05/18/21 05/18/21 05/18/21 Range/Units 16:16 16:16 23:44 WBC 8.1 (4.8-10.8) X10*3/uL RBC 5.04 (4.20-5.50) X10*6/uL Hgb 14.5 (12.0-16.0) g/dl Hct 44.1 (37.0-47.0) % MCV 87.5 (80.0-98.0) fL MCH 28.8 (27.0-33.0) pg MCHC 32.9 (31.0-35.0) g/dl RDW 13.8 (11.0-16.0) % Plt Count 297 (160-400) X10*3/uL MPV 8.8 L (9.4-12.3) fL Immature Gran % (Auto) 0.1 (0.0-0.4) % Neut % (Auto) 75.0 H (45-73) % Lymph % (Auto) 18.1 L (20-40) % Hutchinson % (Auto) 5.7 (2-11) % Eos % (Auto) 0.7 (0-4) % Baso % (Auto) 0.4 (0-2) % Lymph # (Auto) 1.5 (1.2-4.9) X10*3/uL Hutchinson # (Auto) 0.5 (0.1-1.2) X10*3/uL Eos # (Auto) 0.1 (0.0-0.4) X10*3/uL Baso # (Auto) 0.0 (0.0-0.2) X10*3/uL Abs Immat Gran (auto) 0.01 (0.00-0.03) X10*3/uL Absolute Neuts (auto) 6.1 (2.0-8.3) x10*3/uL Absolute Nucleated RBC 0.000 (0.0-0.012) X10*3/uL Nucleated RBC % (auto) 0.0 (0.0-0.2) /100WBC Sodium 138 (135-145) mmol/L Potassium 4.6 (3.3-5.1) mmol/L Chloride 104 (96-108) mmol/L Carbon Dioxide 26 (22-29) mmol/L Anion Gap 13 (12-20) BUN 7 L (9-16) mg/dL Creatinine 0.69 (0.5-1.4) mg/dL Estim Creat Clear Calc 135.1 Estimated GFR > 60 Random Glucose 100 (60-115) mg/dL Calcium 9.7 D (8.4-10.2) mg/dL Total Bilirubin 0.6 (0.0-1.0) mg/dL AST 16 (5-31) U/L ALT 16 (0-31) U/L Alkaline Phosphatase 83 (39-117) U/L Total Protein 7.2 (6.5-8.0) g/dL Albumin 4.5 (3.5-5.0) g/dL Lipase 6 L (8-78) U/L Beta HCG, Quant < 2 mIU/mL Urine Color YELLOW Urine Appearance CLEAR Urine pH 7.0 (5.0-8.0) Ur Specific Rozel <= 1.005 (1.005-1.025) Urine Protein TRACE (NEG-TRACE) MG/DL Urine Glucose (UA) NEG (NEG) MG/DL Urine Ketones NEG (NEG) MG/DL Urine Blood 3+ H (NEG) Urine Nitrite NEG (NEG) Ur Leukocyte Esterase NEG (NEG) Urine RBC 0 (0) /HPF Urine WBC 0-2 (0-4) /HPF Ur Squamous Epith Cells 2+ /LPF Urine Bacteria TRACE /LPF Critical Care Time Critical Care Time Critical Care Time: No Discharge Plan Discharge Clinical Impression: Abdominal pain, Nausea & vomiting Patient Disposition: Home, Self-Care Instructions: Acute Nausea and Vomiting (ED), Abdominal Pain (ED) Additional Instructions: Take your medications as prescribed. If you were prescribed antibiotics today, it is important that you take your medication to their entirety, do not skip any doses, do not finish them early. Follow-up with your primary care provider this week. Follow-up with Gastroenterology as needed. However if symptoms worsen or progress you should return to the emergency department. Return to the emergency department with new or worsening symptoms. Such as fevers, chills, chest pain, shortness of breath, nausea, vomiting, dizziness, headache, vision changes, lethargy In case of emergency call 911 US/US pelvic ovarian doppler IMPRESSION: Negative study. No evidence of ovarian torsion. T/CT abdomen pelvis w con IMPRESSION: No significant abnormality. Normal retrocecal appendix. Prescriptions: New ondansetron 4 mg tablet,disintegrating 4 mg PO ONCE PRN (Reason: nausea and vomiting) Qty: 10 0RF No Action clonidine HCl 0.1 mg Tablet 0.1 mg PO TID PRN (Reason: Anxiety) 0RF Label Comments: Pt takes prn Rx Instructions: take 1/2 tab to 1 tab TID PRN omeprazole 20 mg capsule,delayed release(DR/EC) 20 mg PO DAILY Qty: 30 0RF L norgest/e.estradiol-e.estrad [Simpesse] 0.15 mg-30 mcg (84)/10 mcg (7) tablets,dose pack,3 month 1 tab PO DAILY 0RF Vivitrol 380 mg suspension,extended rel recon 380 mg IM Q4W Qty: 1 5RF sertraline 100 mg tablet 100 mg PO DAILY Qty: 30 3RF Referrals: Keesha Rodriguez NP [Primary Care Provider] - 2 days Mark Torres [Physician] - 2 days Stand Alone Forms: Work/School Release
[2021-05-18 18:40] LABS: Lipase 6 U/L (8-78)
[2021-05-18 19:41] LABS: HCG Quantitative < 2 mIU/mL
[2021-05-18] MEDS: iohexoL 350 MG/ML 100 ML INFUS..BTL IV (20:46)
[2021-05-18 21:32] VITALS: BP 113/65; PULSE 59; RESP 16; TEMP 37.1; O2SAT 95
[2021-05-18] MEDS: Ketorolac Tromethamine 15 MG/ML VIAL 30 MG IVPUSH (23:18)
[2021-05-18] MEDS: Ondansetron ODT 4 MG TAB.RAPDIS TRANSLINGU (23:18)
[2021-05-18 23:41] VITALS: BP 130/80; PULSE 69; RESP 17; TEMP 36.8; O2SAT 97
[2021-05-18 23:52] LABS: Appearance Urine CLEAR; Color Urine YELLOW; Glucose Urine UA NEG (NEG); Leukocyte Esterase Urine NEG (NEG); Nitrite Urine NEG (NEG); Specific Gravity - Urine <= 1.005 (1.005-1.025); UACC Culture Trigger NO; Urine Blood 3+ (NEG); Urine Ketones NEG (NEG); Urine Protein TRACE MG/DL (NEG-TRACE)
[2021-05-18 23:57] LABS: Bacteria Urine TRACE /LPF; RBC Urine 0 /HPF (0); Squamous Epithelial Cell Urine 2+ /LPF; WBC Urine 0-2 /HPF (0-4)
== END 2021-05-19 00:28 | disposition home or self-care (01) ==
PROVIDERS: Physician Assistant; Emergency Provider Emergency Medicine Emergency Medical Services; PCP Nurse Practitioner Family
DX: R10.31 Right lower quadrant pain (principal); R11.2 Nausea with vomiting, unspecified; R10.2 Pelvic and perineal pain; F33.1 Major depressive disorder, recurrent, moderate; Z79.899 Other long term (current) drug therapy
CPT/HCPCS: 36415; 74177; 76830; 76856; 80053; 81001; 83690; 84702; 85025; 93975; 96374; 99284; J1885; Q9967

== ENCOUNTER → 2021-06-19 10:33 | Outpatient (BNVA) | payer MEDICAID, SELFPAY | PROVIDERS: Visit Provider Nurse Practitioner Psychiatric/Mental Health | DX: Z51.81 Encounter for therapeutic drug level monitoring (principal); F10.20 Alcohol dependence, uncomplicated; F32.9 Major depressive disorder, single episode, unspecified | CPT/HCPCS: 80305; 81025; 96372; 99212 ==

== ENCOUNTER 2021-07-07 13:06 | Emergency (ER) | payer MEDICAID, SELFPAY | END 2021-07-07 21:32 | disposition left against medical advice (07) | LOC: HO.ED 15:56 | PROVIDERS: Emergency Provider Emergency Medicine; PCP Nurse Practitioner Family | DX: S99.921A Unspecified injury of right foot, initial encounter (principal); X58.XXXA Exposure to other specified factors, initial encounter; Y93.9 Activity, unspecified; Y92.9 Unspecified place or not applicable; Y99.9 Unspecified external cause status ==

== ENCOUNTER → 2021-07-17 10:28 | Outpatient (BNVA) | payer MEDICAID, SELFPAY | PROVIDERS: PCP Nurse Practitioner Family; Visit Provider Nurse Practitioner Psychiatric/Mental Health | DX: F10.20 Alcohol dependence, uncomplicated (principal); F32.9 Major depressive disorder, single episode, unspecified | CPT/HCPCS: 80305; 96372; 99212 ==

== ENCOUNTER → 2021-08-14 10:29 | Outpatient (BNVA) | payer MEDICAID, SELFPAY | PROVIDERS: PCP Nurse Practitioner Family; Visit Provider Nurse Practitioner Psychiatric/Mental Health | DX: Z51.81 Encounter for therapeutic drug level monitoring (principal); F10.20 Alcohol dependence, uncomplicated; F32.9 Major depressive disorder, single episode, unspecified | CPT/HCPCS: 80305; 81025; 96372; 99212 ==

== ENCOUNTER → 2021-09-15 10:50 | Outpatient (BNVA) | payer MEDICAID, SELFPAY | PROVIDERS: PCP Nurse Practitioner Family; Visit Provider Nurse Practitioner Psychiatric/Mental Health | DX: F10.20 Alcohol dependence, uncomplicated (principal) | CPT/HCPCS: 80305; 81025; 96372; 99211; J2315 ==

== ENCOUNTER → 2021-10-13 10:30 | Outpatient (BNVA) | payer MEDICAID, SELFPAY | PROVIDERS: PCP Nurse Practitioner Family; Visit Provider Nurse Practitioner Psychiatric/Mental Health | DX: F10.20 Alcohol dependence, uncomplicated (principal); Z51.81 Encounter for therapeutic drug level monitoring; Z79.899 Other long term (current) drug therapy | CPT/HCPCS: 80305; 81025; 96372; 99212 ==

== ENCOUNTER → 2021-11-10 10:29 | Outpatient (BNVA) | payer MEDICAID, SELFPAY | PROVIDERS: PCP Nurse Practitioner Family; Visit Provider Nurse Practitioner Psychiatric/Mental Health | DX: F10.21 Alcohol dependence, in remission (principal); Z51.81 Encounter for therapeutic drug level monitoring; Z32.01 Encounter for pregnancy test, result positive; Z79.899 Other long term (current) drug therapy | CPT/HCPCS: 80305; 81025; 96372; 99212 ==

== ENCOUNTER → 2021-12-09 10:16 | Outpatient (BNVA) | payer MEDICAID, SELFPAY | PROVIDERS: PCP Nurse Practitioner Family; Visit Provider Nurse Practitioner Psychiatric/Mental Health | DX: F10.20 Alcohol dependence, uncomplicated (principal); Z32.02 Encounter for pregnancy test, result negative | CPT/HCPCS: 80305; 81025; 96372; 99212 ==

== ENCOUNTER → 2022-01-07 10:42 | Outpatient (BNVA) | payer MEDICAID, SELFPAY | PROVIDERS: PCP Nurse Practitioner Family; Visit Provider Nurse Practitioner Psychiatric/Mental Health | DX: F10.20 Alcohol dependence, uncomplicated (principal); Z32.02 Encounter for pregnancy test, result negative | CPT/HCPCS: 80305; 81025; 96372; 99212 ==

== ENCOUNTER → 2022-02-10 10:00 | Outpatient (BNVA) | payer MEDICAID, SELFPAY | PROVIDERS: PCP Nurse Practitioner Family; Visit Provider Nurse Practitioner Psychiatric/Mental Health | DX: F10.20 Alcohol dependence, uncomplicated (principal) | CPT/HCPCS: 81025; 96372; 99212 ==

== ENCOUNTER → 2022-03-10 10:28 | Outpatient (BNVA) | payer MEDICAID, SELFPAY | PROVIDERS: PCP Nurse Practitioner Family; Visit Provider Nurse Practitioner Psychiatric/Mental Health | DX: F10.20 Alcohol dependence, uncomplicated (principal) | CPT/HCPCS: 80305; 81025; 96372; 99212 ==

== ENCOUNTER → 2022-04-09 10:29 | Outpatient (BNVA) | payer MEDICAID, SELFPAY | PROVIDERS: PCP Nurse Practitioner Family; Visit Provider Nurse Practitioner Psychiatric/Mental Health | DX: F10.21 Alcohol dependence, in remission (principal); Z51.81 Encounter for therapeutic drug level monitoring; Z79.899 Other long term (current) drug therapy | CPT/HCPCS: 81025; 96372; 99212 ==

== ENCOUNTER → 2022-05-04 10:30 | Outpatient (BNVA) | payer MEDICAID, SELFPAY | PROVIDERS: PCP Nurse Practitioner Family; Visit Provider Nurse Practitioner Psychiatric/Mental Health | DX: Z51.81 Encounter for therapeutic drug level monitoring (principal); Z32.01 Encounter for pregnancy test, result positive; F10.21 Alcohol dependence, in remission | CPT/HCPCS: 81025; 96372; 99212 ==

== ENCOUNTER → 2022-06-02 10:30 | Outpatient (BNVA) | payer OTHER, SELFPAY | PROVIDERS: PCP Nurse Practitioner Family; Visit Provider Nurse Practitioner Psychiatric/Mental Health | DX: Z51.81 Encounter for therapeutic drug level monitoring (principal); F10.21 Alcohol dependence, in remission; Z79.899 Other long term (current) drug therapy | CPT/HCPCS: 80305; 81025; 96372; 99212 ==

== ENCOUNTER → 2022-07-02 09:45 | Outpatient (BNVA) | payer OTHER, SELFPAY | PROVIDERS: PCP Nurse Practitioner Family; Visit Provider Nurse Practitioner Psychiatric/Mental Health | DX: Z51.81 Encounter for therapeutic drug level monitoring (principal); F10.21 Alcohol dependence, in remission; Z79.899 Other long term (current) drug therapy | CPT/HCPCS: 81025; 99212 ==

== ENCOUNTER → 2022-08-11 09:44 | Outpatient (BNVA) | payer OTHER, SELFPAY | PROVIDERS: PCP Nurse Practitioner Family; Visit Provider Nurse Practitioner Psychiatric/Mental Health | DX: F10.21 Alcohol dependence, in remission (principal) | CPT/HCPCS: 99212 ==

== ENCOUNTER 2022-11-02 09:28 | Outpatient (AMB) | payer OTHER, SELFPAY ==
--- NOTE | 2022-11-02 09:29 | A.OFFVIS_ITS ---
Intake Vital Signs 11/02/22 09:34 BP 118/70 Blood Pressure Location Lt radial Position Sitting Pulse 64 Pulse Source Pulse Oximeter Pulse Oximetry (%) 97 Oxygen Delivery Method Room Air Intake Visit Reasons: mat visit Intake Note: the patient presents for a mat visit [employer] Required: No Allergies No Known Allergies Allergy (Verified 11/02/22 09:35) Do you need a note to return to daycare/school/sports/work: No HPI mat visit HPI Details Patient presents for follow up Continues to do well with recovery Went on a sober camping trip with her children earlier this month Still engaged with recovery supports no questions or concerns at this time [facility] Medical History (Updated 07/02/22 @ 13:10 by Kiana Samano CNP) Alcohol use disorder, severe, in early remission Alcohol use disorder, severe, dependence Tonsillectomy planned Alcohol withdrawal Depression Alcohol abuse Anxiety Post depression Family History Maternal Grandmother Breast cancer Social History Household Members: Spouse and Children Housing: House Do you presently have visiting nurse or other home services: No Alcohol intake: never service: No Current occupational status: employed Current occupation: [employer] Review of Systems Const Reports as per HPI and Reports no additional complaints Physical Exam Vital Signs: Last Vital Signs Pulse 64 11/02/22 09:34 BP 118/70 11/02/22 09:34 Pulse Ox 97 11/02/22 09:34 Oxygen Delivery Method Room Air 11/02/22 09:34 Const General: cooperative and healthy appearing Psych Appearance: well kempt Speech and movement: Clear speech present Affect: normal affect Attitude: cooperative Thought process: Normal thought process present Thought content: Normal thought content present Insight: Good insight present (Psych) Judgement: Good judgement present (Psych) Assessment & Plan Assessment & Plan (1) Alcohol use disorder, severe, in sustained remission: Code(s): F10.21 - Alcohol dependence, in remission Plan: * follow up 8 weeks Coding Level of Care Code Est Pt Level 3 (78354) Diagnoses Alcohol use disorder, severe, in sustained remission F10.21
[2022-11-02 09:34] VITALS: BP 118/70; PULSE 64; O2SAT 97
== END 2022-11-02 09:57 | disposition home or self-care (01) ==
LOC: HO.HCC 09:28
PROVIDERS: PCP Nurse Practitioner Family; Visit Provider Nurse Practitioner Psychiatric/Mental Health
DX: F10.21 Alcohol dependence, in remission (principal)
CPT/HCPCS: 99213

== ENCOUNTER → 2022-11-02 09:28 | Outpatient (BNVA) | payer OTHER, SELFPAY | PROVIDERS: PCP Nurse Practitioner Family; Visit Provider Nurse Practitioner Psychiatric/Mental Health | DX: F10.21 Alcohol dependence, in remission (principal) | CPT/HCPCS: 99212 ==

== ENCOUNTER 2022-11-20 13:00 | Outpatient (AMB) | payer OTHER, SELFPAY ==
--- NOTE | 2022-11-20 13:00 | A.OFFVIS_ITS ---
Intake Vital Signs 11/20/22 13:04 BP 132/76 Blood Pressure Location Lt radial Position Sitting Pulse 82 Pulse Source Pulse Oximeter Pulse Oximetry (%) 95 Oxygen Delivery Method Room Air Intake Visit Reasons: MAT Visit, 30 mins Intake Note: the patient presents for a mat visit Procedure Manager Required: No Allergies No Known Allergies Allergy (Verified 11/20/22 13:05) Do you need a note to return to daycare/school/sports/work: No HPI MAT Visit, 30 mins HPI Details Patient presents for follow up and to discuss possible leave from work Increasing anxiety and panic Has been trying to get into therapy--reaching out Z[facility] Oliva Discussed sx and onset ?PMDD Discussed increasing sertraline dose prior to menstruation Discussed request for leave, she states that she had to call out of work one day due to depression and anxiety that made it impossible to get out of bed . This life underwriter inquired how leave would assist with sx of depression and what did she plan to do during that time to address those sx, patient responded, I don't know, I probably would just stay in all day . Discussed importance of engaging in some form of treatment during this time and avoiding isolation at home. Patient agreeable [facility] Medical History (Updated 11/30/22 @ 10:44 by Kiana Samano CNP) Alcohol use disorder, severe, in early remission Alcohol use disorder, severe, dependence Tonsillectomy planned Alcohol withdrawal Depression Alcohol abuse Anxiety Post depression Family History Maternal Grandmother Breast cancer Social History Household Members: Spouse and Children Housing: House Do you presently have visiting nurse or other home services: No Alcohol intake: never service: No Current occupational status: employed Current occupation: [employer] Review of Systems Const Reports as per HPI Physical Exam Vital Signs: Last Vital Signs Pulse 82 11/20/22 13:04 BP 132/76 11/20/22 13:04 Pulse Ox 95 11/20/22 13:04 Oxygen Delivery Method Room Air 11/20/22 13:04 Const General: cooperative and healthy appearing Psych Appearance: well kempt Speech and movement: Clear speech present Affect: normal affect Attitude: cooperative Thought process: Normal thought process present Thought content: Normal thought content present Insight: Good insight present (Psych) Judgement: Good judgement present (Psych) Assessment & Plan Assessment & Plan (1) Major depressive disorder: Code(s): F32.9 - Major depressive disorder, single episode, unspecified Qualifiers: Major depression recurrence: recurrent Plan: * agreeable to increase dose prior to menses * will seek out therapy --referral to be placed ot [facility] as well * encouraged to seek out EAP * follow up one month Medications: New sertraline 50 mg PO DAILY 30 tabs 3RF Coding Level of Care Code Est Pt Level 3 (84878) Diagnoses Major depressive disorder F32.9 Major depression recurrence: recurrent
[2022-11-20 13:04] VITALS: BP 132/76; PULSE 82; O2SAT 95
== END 2022-11-20 13:33 | disposition home or self-care (01) ==
PROVIDERS: PCP Nurse Practitioner Family; Visit Provider Nurse Practitioner Psychiatric/Mental Health
DX: F10.91 Alcohol use, unspecified, in remission (principal); F33.1 Major depressive disorder, recurrent, moderate
CPT/HCPCS: 99213

== ENCOUNTER → 2022-11-20 13:00 | Outpatient (BNVA) | payer OTHER, SELFPAY | PROVIDERS: PCP Nurse Practitioner Family; Visit Provider Nurse Practitioner Psychiatric/Mental Health | DX: F32.9 Major depressive disorder, single episode, unspecified (principal) | CPT/HCPCS: 99212 ==

== ENCOUNTER 2022-12-31 10:29 | Outpatient (AMB) | payer OTHER, SELFPAY ==
--- NOTE | 2022-12-31 10:30 | A.OFFVIS_ITS ---
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 Has restarted control and has been reaching out to her supports more often. Brighter affect. Continues to do well with recovery. [facility] Medical History (Updated 11/30/22 @ 10:44 by Kiana Samano CNP) Alcohol use disorder, severe, in early remission Alcohol use disorder, severe, dependence Tonsillectomy planned Alcohol withdrawal Depression Alcohol abuse Anxiety Post depression Family History Maternal Grandmother Breast cancer Social History Household Members: Spouse and Children Housing: House Do you presently have visiting nurse or other home services: No Alcohol intake: never service: No Current occupational status: employed Current occupation: [employer] Review of Systems Const Reports as per HPI and Reports no additional complaints Physical Exam Vital Signs: Last Vital Signs Pulse 61 12/31/22 10:36 BP 116/74 12/31/22 10:36 Pulse Ox 98 12/31/22 10:36 Oxygen Delivery Method Room Air 12/31/22 10:36 Const General: cooperative, healthy appearing, alert and awake Nutritional Appearance: average body habitus Psych Appearance: well kempt Speech and movement: Clear speech present Affect: normal affect Attitude: cooperative Thought process: Normal thought process present Thought content: Normal thought content present Insight: Good insight present (Psych) Judgement: Good judgement present (Psych) Assessment & Plan Assessment & Plan (1) Major depressive disorder: Code(s): F32.9 - Major depressive disorder, single episode, unspecified Qualifiers: Major depression recurrence: recurrent Plan: * no changes to current regimen * follow up 2 months Coding Level of Care Code Est Pt Level 3 (93840) Diagnoses Major depressive disorder F32.9 Major depression recurrence: recurrent
[2022-12-31 10:36] VITALS: BP 116/74; PULSE 61; O2SAT 98
== END 2022-12-31 11:06 | disposition home or self-care (01) ==
PROVIDERS: PCP Nurse Practitioner Family; Visit Provider Nurse Practitioner Psychiatric/Mental Health
DX: F10.21 Alcohol dependence, in remission (principal); F33.1 Major depressive disorder, recurrent, moderate
CPT/HCPCS: 99213

== ENCOUNTER → 2022-12-31 10:29 | Outpatient (BNVA) | payer OTHER, SELFPAY | PROVIDERS: PCP Nurse Practitioner Family; Visit Provider Nurse Practitioner Psychiatric/Mental Health | DX: F32.9 Major depressive disorder, single episode, unspecified (principal) | CPT/HCPCS: 99212 ==

== ENCOUNTER 2023-02-12 10:49 | Outpatient (RCR) | payer OTHER, SELFPAY | END 2023-02-12 23:59 | disposition home or self-care (01) | LOC: HO.PHPA 10:49 | PROVIDERS: Visit Provider Psychiatry & Neurology Psychiatry | DX: F32.9 Major depressive disorder, single episode, unspecified (principal) | CPT/HCPCS: 90791 ==

== ENCOUNTER 2023-03-09 08:52 | Outpatient (AMB) | payer SELFPAY ==
[2023-03-09 08:54] VITALS: BP 120/70; PULSE 80; RESP 19; O2SAT 96
--- NOTE | 2023-03-09 08:54 | A.OFFVISCC_ITS ---
Intake Vital Signs 03/09/23 08:54 BP 120/70 Blood Pressure Location Rt radial Position Sitting Respiration 19 Pulse 80 Pulse Source Pulse Oximeter Pulse Oximetry (%) 96 Oxygen Delivery Method Room Air Intake Visit Reasons: mat visit Allergies No Known Allergies Allergy (Verified 12/31/22 10:32) HPI mat visit HPI Details Patient presents for AUD follow up and to re-establish care She reports she has been drinking here and there since August Had 2 episodes in December and January where she was extremely intoxicated and her friend came to care for her children Her friend called [facility] to report that patient was drinking again and unable to care for her children and since then children have been in the care of her best friend She is able to see them once per week. Reviewed timeline and patient had stopped injection in June (per her request) August is when she had a drink for the first time Last drink was February 09 She has since started to attend meetings again with more frequency and has restarted therapy. She would like to resume Vivitrol injections, and has already started taking PO Naltrexone which she had at home--has been taking it for the last week Starts [facility] March 18. [facility] Medical History (Updated 03/09/23 @ 14:32 by Kiana Samano CNP) Alcohol use disorder, severe, in sustained remission Alcohol use disorder, severe, dependence Alcohol use disorder, severe, in early remission Tonsillectomy planned Alcohol withdrawal Depression Alcohol abuse Anxiety Post depression Family History Maternal Grandmother Breast cancer Social History Household Members: Children Household Members Other:: Herself and children reside in the home setting. 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 Review of Systems Const Reports as per HPI Psych Reports anxiety and Reports depression Physical Exam Vital Signs: Last Vital Signs Pulse 80 03/09/23 08:54 Resp 19 03/09/23 08:54 BP 120/70 03/09/23 08:54 Pulse Ox 96 03/09/23 08:54 Oxygen Delivery Method Room Air 03/09/23 08:54 Const General: cooperative and healthy appearing Orientation/consciousness: patient oriented x3 Limitations: no limitations Neuro General: patient oriented x3 Psych Appearance: well kempt Speech and movement: Clear speech present Affect: Sad affect present Attitude: cooperative Thought process: Normal thought process present Thought content: Normal thought content present Insight: Fair insight present (Psych) Judgement: Good judgement present (Psych) Assessment & Plan Assessment & Plan (1) Alcohol use disorder, severe, dependence: Code(s): F10.20 - Alcohol dependence, uncomplicated Plan: * continue PO Naltrexone * Vivitrol ordered * relapse prevention discussion (2) Major depressive disorder: Code(s): F32.9 - Major depressive disorder, single episode, unspecified Qualifiers: Major depression recurrence: recurrent Plan: * refilled sertraline Medications: New naltrexone microspheres ER (Vivitrol) 380 mg IM Q4W 1 ea 5RF Refilled sertraline 100 mg PO DAILY 90 tabs 3RF sertraline 50 mg PO DAILY 30 tabs 3RF Coding Level of Care Code Est Pt Level 4 (35584) Diagnoses Alcohol use disorder, severe, dependence F10.20 Major depressive disorder F32.9 Major depression recurrence: recurrent
== END 2023-03-09 09:26 | disposition home or self-care (01) ==
PROVIDERS: PCP Nurse Practitioner Family; Visit Provider Nurse Practitioner Psychiatric/Mental Health
DX: F10.20 Alcohol dependence, uncomplicated (principal); F32.9 Major depressive disorder, single episode, unspecified
CPT/HCPCS: 99214

== ENCOUNTER → 2023-03-09 08:52 | Outpatient (BNVA) | payer OTHER, SELFPAY | PROVIDERS: PCP Nurse Practitioner Family; Visit Provider Nurse Practitioner Psychiatric/Mental Health | DX: F10.20 Alcohol dependence, uncomplicated (principal); F32.9 Major depressive disorder, single episode, unspecified; Z79.899 Other long term (current) drug therapy | CPT/HCPCS: 99212 ==

== ENCOUNTER 2023-03-11 15:05 | Outpatient (AMB) | payer MEDICAID, SELFPAY ==
--- NOTE | 2023-03-11 15:09 | MHC.AM.SUB ---
Intake Intake Visit Reasons: royal inj Intake Note: the patient presents for a royal inj Placement Secretary Required: No Allergies No Known Allergies Allergy (Verified 03/11/23 15:10) Do you need a note to return to daycare/school/sports/work: No [facility] Medical History (Updated 03/09/23 @ 14:32 by Kiana Samano CNP) Alcohol use disorder, severe, in sustained remission Alcohol use disorder, severe, dependence Alcohol use disorder, severe, in early remission Tonsillectomy planned Alcohol withdrawal Depression Alcohol abuse Anxiety Post depression Family History Maternal Grandmother Breast cancer Social History Household Members: Children Household Members Other:: Herself and children reside in the home setting. Housing: House Do you presently have visiting nurse or other home services: No Alcohol intake: never Comment: sleeping service: No Current occupational status: employed Current occupation: [employer] Assessment & Plan Assessment & Plan Orders: Orders AMB HCG Urine Test Today Z32.01 - Encounter for test, result positive, Z32.02 - Encounter for test, result negative Coding
--- NOTE | 2023-03-11 15:15 | AM.OFFVISNUR ---
Intake Vital Signs 03/11/23 15:17 BP 108/70 Blood Pressure Location Lt radial Position Sitting Pulse 74 Pulse Source Pulse Oximeter Pulse Oximetry (%) 98 Oxygen Delivery Method Room Air Intake Visit Reasons: royal inj Intake Note: the patient presents for a royal inj Medical Technologist Microbiology Required: No Allergies No Known Allergies Allergy (Verified 03/11/23 15:18) Do you need a note to return to daycare/school/sports/work: No Nursing Note Pt. presents for vivitrol injection.? Pt A&O x 4 pleasant and cooperative with care.? ? Pt. reports her recovery is going well.?Denies any breakthrough cravings/urges and also denies any SE from injection other than immediate pain following injection. I educated pt. on ways to decrease pain in injeciton site area including keeping all tight clothing off the area. Pt. will F/U in clinic in four weeks for check in and injection. Office Meds Vivitrol 380 mg intramuscular suspension,extended release Performing Provider: Kiana Samano CNP Performing Location: [facility] Administered by: Valencia Norwood RN on 03/11/23 15:41 Dose Route Admin Location Dispensed Lot Number Expiration Date [facility] [employer] 380 mg IM 380 mg 2022-3030T 08/14/24 31874-671-25 [employer] Results AMB Test Urine AMB Test Urine Negative Last Edit by Pao Buchanan CMA on 03/11/23 15:19 Coding Assessment & Plan Assessment & Plan Orders: Orders AMB HCG Urine Test Today Z32.01 - Encounter for test, result positive, Z32.02 - Encounter for test, result negative AMB Naltrexone Injection Patient Supplied Today F10.20 - Alcohol dependence, uncomplicated
[2023-03-11 15:17] VITALS: BP 108/70; PULSE 74; O2SAT 98
== END 2023-03-11 15:28 | disposition home or self-care (01) ==
PROVIDERS: PCP Nurse Practitioner Family
DX: Z32.02 Encounter for pregnancy test, result negative (principal); Z32.01 Encounter for pregnancy test, result positive; F10.20 Alcohol dependence, uncomplicated

== ENCOUNTER → 2023-03-11 15:05 | Outpatient (BNVA) | payer OTHER, SELFPAY | PROVIDERS: PCP Nurse Practitioner Family | DX: F10.20 Alcohol dependence, uncomplicated (principal); Z32.02 Encounter for pregnancy test, result negative; Z79.899 Other long term (current) drug therapy | CPT/HCPCS: 81025; 96372; J2315 ==

== ENCOUNTER 2023-03-22 09:26 | Outpatient (REF) | payer OTHER, SELFPAY ==
[2023-03-22 09:38] LABS: MANUAL DIFF FLAG NO
[2023-03-22 10:18] LABS: Basophils Percent Auto 0.6 % (0-2); Eosinophils Absolute Auto 0.1 X10*3/uL (0.0-0.4); Eosinophils Percent Auto 1.3 % (0-4); Hematocrit 44.3 % (37.0-47.0); Hemoglobin 14.5 g/dl (12.0-16.0); Imm Gran Abs Auto 0.02 X10*3/uL (0.00-0.03); Imm Gran Pct Auto 0.4 % (0.0-0.4); Lymphocytes Absolute Auto 1.2 X10*3/uL (1.2-4.9); Lymphocytes Percent Auto 21.6 % (20-40); Mean Corpuscular HGB Conc 32.7 g/dl (31.0-35.0); Mean Corpuscular Hemoglobin 28.4 pg (27.0-33.0); Mean Corpuscular Volume 86.9 fL (80.0-98.0); Mean Platelet Volume 9.2 fL (9.4-12.3); Monocytes Absolute Auto 0.5 X10*3/uL (0.1-1.2); Monocytes Percent Auto 9.7 % (2-11); Neutrophils Absolute Auto 3.6 x10*3/uL (2.0-8.3); Neutrophils Percent Auto 66.4 % (45-73); Platelet Count 270 X10*3/uL (160-400); Red Cell Distribution Width 14.2 % (11.0-16.0); White Blood Count 5.4 X10*3/uL (4.8-10.8)
[2023-03-22 10:53] LABS: Alanine Aminotransferase 11 U/L (0-31); Alkaline Phosphatase 64 U/L (39-117); Anion Gap 10 (12-20); Aspartate Amino Transferase 18 U/L (5-31); Bilirubin Total 0.3 mg/dL (0.0-1.0); Blood Urea Nitrogen 14 mg/dL (9-16); Calcium 9.4 mg/dL (8.4-10.2); Carbon Dioxide 27 mmol/L (22-29); Chloride 107 mmol/L (96-108); Estimated Glomerular Filt Rate > 60; Glucose Random 73 mg/dL (60-115); Potassium 4.4 mmol/L (3.3-5.1); Sodium 140 mmol/L (135-145); Total Protein 7.2 g/dL (6.5-8.0)
== END 2023-03-22 09:27 | disposition home or self-care (01) ==
LOC: HO.LAB 09:26
PROVIDERS: Visit Provider Psychiatry & Neurology Psychiatry
DX: F33.1 Major depressive disorder, recurrent, moderate (principal); F41.1 Generalized anxiety disorder
CPT/HCPCS: 36415; 80053; 84443; 85025

== ENCOUNTER → 2023-03-26 12:30 | Outpatient (BNV) | payer OTHER, SELFPAY | PROVIDERS: Visit Provider Psychiatry & Neurology Psychiatry | DX: F10.21 Alcohol dependence, in remission (principal); F41.8 Other specified anxiety disorders; F33.1 Major depressive disorder, recurrent, moderate | CPT/HCPCS: 90792; 99213 ==

== ENCOUNTER 2023-04-01 12:30 | Outpatient (RCR) | payer OTHER, SELFPAY ==
[2023-03-19 10:43] VITALS: BMI 29.1
[2023-03-19 10:44] VITALS: BP 99/71; PULSE 79; TEMP 37.1
--- NOTE | 2023-03-19 11:22 | PC.ADMIT ---
Patient is a 28 year old female who self referred back to [facility] d/t struggling with some depression sxs, history of ETOH use and DCF involvement as a result. Patient's children are currently living with her friend. Patient previously started [facility] in January 2023 however was not able to attend d/t insurance issues. Per integrative assessment patient reports an incident in January drinking ETOH while her children ages 4 and 5 were present. She reports she is currently sober for the past 36 days. Last drink was on February 09, 2023. She reports she is on MAT with Vivitrol last dose was on 03/09/23. She sees Kiana Samano CNP at the [facility]. She has a sponsor and is attending AA daily. 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 According to Integrative Assessment patient has a history of DUI in July 2021, History of ETOH detox x 3, and attending a 90 day program in 2021. Patient reports she adjusted her work schedule to attend [facility]. Patient is alert and oriented x4. Calm and cooperative. Presented with depressed mood and affect. Denied SI, HI. Patient given a copy of her safety/relapse plan. She reports she is at [facility] to work on how to deal with things in her life without using ETOH and to feel her feelings. Medication reconciled with patient and patient's pharmacy.
--- NOTE | 2023-03-19 23:54 | P.HPPSP_ITS ---
HPI Date of Service: 03/19/23 Chief Complaint: MDD HPI Narrative: Patient is a 28 year old female, mother of 2, with a history of alcohol abuse and post- depression. She self-referred to [facility] for support around her alcohol addiction. She has a 3 year history of DCF involvement and initially relapsed 6 months ago following a 13-month period of recovery. She wasn't drinking daily but was experiencing some black-outs, which were occurring while her kids were in her care. She recently confided in her best friend that she started drinking again, and upon the urging of her best friend, DCF was informed. Children have been staying with her best friend (her children's Godmother). It's now been 36 days since she last drank. She is back on Vivitrol since 03/11, working with Kiana Samano at [facility]. She currently denies any urges or cravings to use alcohol. Denies any other substance use. Currently she reports her mood is good, stable . She denies any depressive symptoms, hopelessness, helplessness or SI. No issues with irritability or lability. Denies any hx of tish or psychosis. Sleep, appetite and energy are intact. Past Psychiatric History: IP hospitalizations: unclear if she had psychiatric admission as she says her filed for Section 12 and she was admitted here, but there are no [facility] admission records found PHP/IOP:[facility] 01/2020 Detox a few times, CSSx3, TSS x1 (for 60 days) [place] [facility] x1: 11/2019 for 5 days at [facility] Denies hx of suicide attempts or SIB (except one instance noted in assessment - age 13 superficial cut) Outpatient: [facility]- [facility] Te[facility]. PCP prescribes medications OP therapy: Zuri Oliva at [facility] Trials: Lexapro, clonidine (recently was on, not needing it anymore now) CURRENT MEDICATIONS: Zoloft 150 mg qd (recently increased from 100 mg) Vivitrol 380 mg IM q 4wks [facility] daily vitamin B12 melatonin [facility] Medical History (Updated 03/30/23 @ 11:04 by Betzy Desai RN) History of gestational diabetes Hepatic steatosis GERD (gastroesophageal reflux disease) Alcohol use disorder, severe, in sustained remission Alcohol use disorder, severe, in early remission Alcohol use disorder, severe, dependence Tonsillectomy planned Alcohol withdrawal Depression Alcohol abuse Anxiety Post depression Narrative: Denies hx of surgeries or seizures Denies concussions or TBI LMP: 3 months ago (on BCP) Ht: 5'5 Wt: 175 lbs ALL: NKDA Family History: Father when pt was age 1 of addiction. Mother when pt was age 4 of addiction. 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 longest period of sobriety was 13 months, relapsed last summer 2022 for 6 months, last drink 02/09. on vivitrol Remote hx of recreational cocaine, marijuana, hallucinogens, stimulants/adderall, in early 20s, denies regular or problematic use/abuse. Last use age 20. No nicotine, minimal caffeine. Trauma History: Patient reports history of emotional abuse in childhood. traumatic loss of parents at a young age, raised by her grandparents who have also since Diagnostics Vital Signs (24Hr): Vital Signs - 24 hr 03/19/23 10:44 Temperature 98.7 F Pulse Rate 79 Blood Pressure 99/71 BMI result Body Mass Index 29.1 Meds/Allergies Meds Home Medications Medication Instructions Recorded Confirmed Type L norgest/E estradiol-E estrad 1 tab PO DAILY 03/19/23 03/19/23 History 0.15 mg-30 mcg (84)/10 mcg(7) tabs,3mos (Simpesse) Allergies Allergies Allergy/AdvReac Type Severity Reaction Status Date / Time No Known Allergies Allergy Verified 03/11/23 15:18 Mental Status Exam Mental Status Exam Narrative: Alert, oriented, in no acute distress. Calm, cooperative, engaged. No psychomotor agitation or neurovegetative retardation. Eye contact maintained. Mood anxious, affect variable, mood congruent. Speech normal. Thought process linear, coherent. Thought content related to stressors, denies any helplessness, hopelessness or SI. No aggressive ideation or HI. No paranoia or delusional content elicited. No evidence of psychosis. Insight and judgment fair but adequate. Assessment & Plan Assessment & Plan (1) MDD (major depressive disorder), recurrent episode, moderate: Status: Acute Code(s): F33.1 - Major depressive disorder, recurrent, moderate (2) Other specified anxiety disorders: Status: Acute Code(s): F41.8 - Other specified anxiety disorders (3) Alcohol dependence: Status: Acute Code(s): F10.20 - Alcohol dependence, uncomplicated Plan Admit to PHP continue regular medications, including Vivitrol monthly injection routine lab work and UDS as appropriate MassPat reviewed monitor as per protocol Patient educated on: diagnosis, medication risk/benefits and substance abuse Informed Consent: understands Reason for continued partial hosp. stay Substantial Risk for: inability to function, rapid decompensation and med/psych decompensation Certification I certify that partial hospital treatment is medically necessary due to the symptoms and problems resulting from the patient's mental illness and the failure to treat the patient at the partial hospital level of care would likely result in the patient requiring inpatient psychiatric care which could not be prevented at a less intensive level of care. Time Spent With Patient Time: Total time managing care of this patient today __60__ minutes.
--- NOTE | 2023-03-25 14:23 | HO.PHP ---
Client's case has been opened and reviewed in treatment team.
--- NOTE | 2023-03-26 15:27 | P.PNPSP_ITS ---
Subjective Subjective Date of Service: 03/26/23 Reason For Visit: MDD Interim History: Patient seen for follow-up. No acute issues or concerns. Reports being exhausted today. 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 She is missing her children. Currently she is on weekly supervised visits through [facility]. CHildren ages 4 and 5 are doing fine, staying at their Godmother's home. They are both in preschool. She Facetimes them every night. She has found her DCF worker helpful and supportive. She reports her mood is fine , she denies any depressive symptoms, anxiety is well-managed. She denies any alcohol or subst ance use. No cravings in roderick interim. She has been compliant on medications, which are well-tolerated. She has her next Vivitrol injection in 2 weeks. Sleep, appetite, energy are stable. She denies any hopelessness, SI. Denies AVH or HI. Mental Status Exam Mental Status Exam Narrative: Alert, oriented, in no acute distress. Calm, cooperative, engaged. No psychomotor agitation or neurovegetative retardation. Eye contact maintained. Mood fine , affect variable, mood congruent. Speech normal. Thought process linear, coherent. Thought content related to stressors, denies any helplessness, hopelessness or SI.? No aggressive ideation or HI. No paranoia or delusional content elicited. No evidence of psychosis. Insight and judgment impaired. Diagnostics Vital Signs (24Hr): BMI result Body Mass Index 29.1 Assessment & Plan Assessment & Plan (1) Alcohol use disorder, severe, dependence: Status: Acute Code(s): F10.20 - Alcohol dependence, uncomplicated (2) Other specified anxiety disorders: Status: Acute Code(s): F41.8 - Other specified anxiety disorders (3) MDD (major depressive disorder), recurrent episode, moderate: Status: Acute Code(s): F33.1 - Major depressive disorder, recurrent, moderate Plan on monthly Vivitrol continue current treatment continue to monitor Patient educated on: diagnosis, medication risk/benefits and substance abuse Informed Consent: understands Reason for contiued partial hosp. stay Substantial Risk for: rapid decompensation and med/psych decompensation Certification I certify that partial hospital treatment is medically necessary due to the symptoms and problems resulting from the patient's mental illness and the failure to treat the patient at the partial hospital level of care would likely result in the patient requiring inpatient psychiatric care which could not be prevented at a less intensive level of care. Total time managing care of this patient today __30__ minutes. Discharge Plan Discharge Attending provider: Grecia Geronimo Medications: No Action L norgest/e.estradiol-e.estrad [Simpesse] 0.15 mg-30 mcg (84)/10 mcg (7) tablets,dose pack,3 month 1 tab PO DAILY Vivitrol 380 mg suspension,extended rel recon 380 mg IM Q4W Qty: 1 5RF sertraline 100 mg tablet 100 mg PO DAILY Qty: 90 3RF sertraline 50 mg tablet 50 mg PO DAILY Qty: 30 3RF Patient Comments: Patient takes prior to her menses for a few days.
--- NOTE | 2023-03-31 12:27 | HO.PHP ---
PHP staff member and Xiomara reached out to [facility] to place a referral for Substance IOP. PHP staff member left a voicemail and is awaiting a call back.
--- NOTE | 2023-04-01 15:52 | PC.NURSE ---
Appointment with [facility] at [address] [place] [address]. Office Number [phone]. Appointment on 04/09/23 at 3:15 pm.
--- NOTE | 2023-04-01 17:42 | P.PNPSP_ITS ---
Subjective Subjective Date of Service: 04/01/23 Reason For Visit: MDD Interim History: Patient seen for follow-up, anticipating discharge at the end of program today.? Reports no acute issues or concerns. Medication compliant, medications well- tolerated. Denies any adverse effects.? Mood is stable.? Denies any hopelessness or SI. Denies thoughts of harming self or others at this time.bDenies any aggressive ideation or HI. Denies any paranoia or AH or VH. Sleep, appetite, energy stable. Mental Status Exam Mental Status Exam Narrative: Alert, oriented, in no acute distress. Calm, cooperative, engaged. No psychomotor agitation or neurovegetative retardation. Eye contact maintained. Mood fine , affect variable, mood congruent. Speech normal. Thought process linear, coherent. Thought content related to stressors, denies any helplessness, hopelessness or SI.? No aggressive ideation or HI. No paranoia or delusional content elicited. No evidence of psychosis. Insight and judgment impaired. Diagnostics Vital Signs (24Hr): BMI result Body Mass Index 29.1 Assessment & Plan Assessment & Plan (1) Alcohol use disorder, moderate, in early remission: Status: Acute Code(s): F10.21 - Alcohol dependence, in remission (2) Other specified anxiety disorders: Status: Acute Code(s): F41.8 - Other specified anxiety disorders (3) MDD (major depressive disorder), recurrent episode, moderate: Status: Acute Code(s): F33.1 - Major depressive disorder, recurrent, moderate Plan Discharge from [facility] continue regular medications will defer further medication management to outpatient provider No refills needed at this time per patient Patient educated on: diagnosis, medication risk/benefits and substance abuse Informed Consent: understands Reason for contiued partial hosp. stay Substantial Risk for: stable for discharge Certification I certify that partial hospital treatment is medically necessary due to the symptoms and problems resulting from the patient's mental illness and the failure to treat the patient at the partial hospital level of care would likely result in the patient requiring inpatient psychiatric care which could not be prevented at a less intensive level of care. Total time managing care of this patient today __30__ minutes. Discharge Plan Discharge Attending provider: Grecia Geronimo Additional Instructions: Appointment with [facility] at [address] [place] [address]. Office Number [phone]. Appointment on 04/09/23 at 3:15 pm. Medications: Continued L norgest/e.estradiol-e.estrad [Simpesse] 0.15 mg-30 mcg (84)/10 mcg (7) tablets,dose pack,3 month 1 tab PO DAILY sertraline 50 mg tablet 50 mg PO DAILY Qty: 30 3RF Patient Comments: Patient takes prior to her menses for a few days. Rx Instructions: take week leading up to menses Vivitrol 380 mg suspension,extended rel recon 380 mg IM Q4W Qty: 1 5RF sertraline 100 mg tablet 100 mg PO DAILY Qty: 90 3RF Stand Alone Forms: Patient Portal Discharge page
== END 2023-04-01 23:59 | disposition home or self-care (01) ==
LOC: HO.PHPA 12:30
PROVIDERS: Visit Provider Psychiatry & Neurology Psychiatry
DX: F33.1 Major depressive disorder, recurrent, moderate (principal); F41.8 Other specified anxiety disorders; F10.20 Alcohol dependence, uncomplicated
CPT/HCPCS: 90791; 90853

== ENCOUNTER 2023-04-08 09:55 | Outpatient (AMB) | payer OTHER, SELFPAY ==
--- NOTE | 2023-04-08 09:56 | AM.OFFVISNUR ---
Intake Vital Signs 04/08/23 10:06 BP 124/76 Blood Pressure Location Lt radial Position Sitting Pulse 84 Pulse Source Pulse Oximeter Pulse Oximetry (%) 96 Oxygen Delivery Method Room Air Intake Visit Reasons: Christina Inj Intake Note: the patient presents for a christina inj Tile Presser Required: No Allergies No Known Allergies Allergy (Verified 04/08/23 09:58) Do you need a note to return to daycare/school/sports/work: No Nursing Note Patient in for Vivitrol injection, she is alert and oriented x4, smiling, denies any cravings and or complications. Patient will follow up in 4 weeks for next injection. Office Meds Vivitrol 380 mg intramuscular suspension,extended release Performing Provider: Kiana Samano CNP Performing Location: [facility] Administered by: Valencia Norwood RN on 04/08/23 10:04 Dose Route Admin Location Dispensed Lot Number Expiration Date [employer] Vibrator Equipment Tester 380 mg IM LG 380 mg 2023-1027T 06/14/25 [id number] [email or web address] Comments: Patient tolerated injection well with no stated or noted side effects. She agrees to calling [facility] with any comments, questions or concerns. Results AMB Test Urine AMB Test Urine Negative Last Edit by Pao Buchanan CMA on 04/08/23 10:10 Coding Assessment & Plan Assessment & Plan Orders: Orders AMB HCG Urine Test Today Z32.01 - Encounter for test, result positive, Z32.02 - Encounter for test, result negative AMB Naltrexone Injection Patient Supplied (NC) Today F10.20 - Alcohol dependence, uncomplicated
[2023-04-08 10:06] VITALS: BP 124/76; PULSE 84; O2SAT 96
== END 2023-04-08 10:24 | disposition home or self-care (01) ==
PROVIDERS: PCP Nurse Practitioner Family
DX: Z32.02 Encounter for pregnancy test, result negative (principal); Z32.01 Encounter for pregnancy test, result positive; F10.20 Alcohol dependence, uncomplicated

== ENCOUNTER → 2023-04-08 09:55 | Outpatient (BNVA) | payer OTHER, SELFPAY | PROVIDERS: PCP Nurse Practitioner Family | DX: F10.20 Alcohol dependence, uncomplicated (principal); Z32.02 Encounter for pregnancy test, result negative; Z79.899 Other long term (current) drug therapy | CPT/HCPCS: 81025; 96372; J2315 ==

== ENCOUNTER 2023-05-06 09:52 | Outpatient (AMB) | payer OTHER, SELFPAY ==
--- NOTE | 2023-05-06 09:57 | AM.OFFVISNUR ---
Intake Vital Signs 05/06/23 10:03 BP 110/74 Blood Pressure Location Lt radial Position Sitting Pulse 73 Pulse Source Pulse Oximeter Pulse Oximetry (%) 98 Oxygen Delivery Method Room Air Intake Visit Reasons: Christina Inj Intake Note: the patient presents for a christina inj Cheesemaking Laborer Required: No Allergies No Known Allergies Allergy (Verified 05/06/23 09:58) Do you need a note to return to daycare/school/sports/work: No Nursing Note Patient in for vivitrol injection today, injection went well with no stated or noted complications. Pt admits having cravings at times, but acknowledges she thinks they are psychological when in social situations. She is going to , has a sponser and is attending IOP and states things are going great . Office Meds Vivitrol 380 mg intramuscular suspension,extended release Performing Provider: Cristine Hutchins NP Performing Location: [facility] Administered by: Valencia Norwood RN on 05/06/23 09:58 Dose Route Admin Location Dispensed Lot Number Expiration Date [facility] Colloid Mill Operator 380 mg IM RG 380 mg 2023-1030T 07/15/25 [id number] [facility] Results AMB Test Urine AMB Test Urine Negative Last Edit by Pao Buchanan CMA on 05/06/23 10:11 Coding Assessment & Plan Assessment & Plan Orders: Orders AMB HCG Urine Test Today Z32.01 - Encounter for test, result positive, Z32.02 - Encounter for test, result negative AMB Naltrexone Injection Patient Supplied (NC) Today F10.20 - Alcohol dependence, uncomplicated
[2023-05-06 10:03] VITALS: BP 110/74; PULSE 73; O2SAT 98
== END 2023-05-06 10:35 | disposition home or self-care (01) ==
PROVIDERS: PCP Nurse Practitioner Family
DX: Z32.02 Encounter for pregnancy test, result negative (principal); Z32.01 Encounter for pregnancy test, result positive; F10.20 Alcohol dependence, uncomplicated

== ENCOUNTER → 2023-05-06 09:52 | Outpatient (BNVA) | payer OTHER, SELFPAY | PROVIDERS: PCP Nurse Practitioner Family | DX: F10.20 Alcohol dependence, uncomplicated (principal); Z32.02 Encounter for pregnancy test, result negative; Z79.899 Other long term (current) drug therapy | CPT/HCPCS: 81025; 96372; J2315 ==

== ENCOUNTER 2023-06-03 10:08 | Outpatient (AMB) | payer OTHER, SELFPAY ==
--- NOTE | 2023-06-03 10:07 | AM.OFFVISNUR ---
Intake Vital Signs 06/03/23 10:10 BP 126/82 Blood Pressure Location Lt brachial Position Sitting Pulse 63 Pulse Source Pulse Oximeter Pulse Oximetry (%) 99 Oxygen Delivery Method Room Air Intake Visit Reasons: Christina Inj Allergies No Known Allergies Allergy (Verified 06/03/23 10:11) Nursing Note Patient to office today for monthly injection. She is alert and oriented x4, in good spirits, smiling, speaking in clear/full sentences. States injection is going well, denies cravings. Patient will see Kiana VELASQUEZ at next visit for provider check in. Office Meds Vivitrol 380 mg intramuscular suspension,extended release Performing Provider: Kiana Samano CNP Performing Location: [facility] Administered by: Valencia Norwood RN on 06/03/23 13:20 Dose Route Admin Location Dispensed Lot Number Expiration Date [facility] Inspection Engineer 380 mg IM RG 380 mg 2023-3025T 06/14/25 12482-651-11 [employer] Results AMB Test Urine AMB Test Urine Negative Last Edit by Amrita Carroll CMA on 06/03/23 10:17 Coding Assessment & Plan Assessment & Plan Orders: Orders AMB HCG Urine Test Today Cristine Hutchins NP Z32.02 - Encounter for test, result negative AMB Naltrexone Injection Patient Supplied (NC) Today Kiana Samano CNP F10.20 - Alcohol dependence, uncomplicated Medications: New Vivitrol ER (naltrexone microspheres) 380 mg IM ONCE 1 ea 0RF NS Kiana Samano CNP F10.20 - Alcohol dependence, uncomplicated
[2023-06-03 10:10] VITALS: BP 126/82; PULSE 63; O2SAT 99
== END 2023-06-03 10:31 | disposition home or self-care (01) ==
PROVIDERS: PCP Nurse Practitioner Family
DX: F10.20 Alcohol dependence, uncomplicated (principal); Z32.02 Encounter for pregnancy test, result negative

== ENCOUNTER → 2023-06-03 10:08 | Outpatient (BNVA) | payer OTHER, SELFPAY | PROVIDERS: PCP Nurse Practitioner Family | DX: F10.20 Alcohol dependence, uncomplicated (principal); Z32.02 Encounter for pregnancy test, result negative; Z79.899 Other long term (current) drug therapy | CPT/HCPCS: 81025; 96372; J2315 ==

== ENCOUNTER 2023-07-02 12:51 | Outpatient (AMB) | payer OTHER, SELFPAY ==
--- NOTE | 2023-07-02 12:55 | A.OFFVISCC_ITS ---
Intake Visit Reasons: MAT/ Christina Inj Allergies No Known Allergies Allergy (Verified 06/03/23 10:11) HPI HPI MAT/ Christina Inj: Details: Patient presents for AUD treatment follow up and vivitrol injection Complete 90 day IOP at [facility] in [place] 5 months in recovery now sees children more frequently PCP appt in August --roxy [facility] Medical History (Updated 03/30/23 @ 11:04 by Betzy Desai RN) History of gestational diabetes Hepatic steatosis GERD (gastroesophageal reflux disease) Alcohol use disorder, severe, in sustained remission Alcohol use disorder, severe, in early remission Alcohol use disorder, severe, dependence Tonsillectomy planned Alcohol withdrawal Depression Alcohol abuse Anxiety Post depression Family History Maternal Grandmother Breast cancer Social History Household Members: None Household Members Other:: Herself and children reside in the home setting. Housing: House Do you presently have visiting nurse or other home services: No Alcohol intake: never Comment: sleeping Patient Tobacco Use Status: Never used Tobacco service: No Current occupational status: employed Current occupation: [employer] Physical Exam Const General: cooperative and healthy appearing Orientation/consciousness: patient oriented x3 Limitations: no limitations Neuro General: patient oriented x3 Psych Appearance: well kempt Speech and movement: Clear speech present Affect: normal affect Attitude: cooperative Thought process: Normal thought process present Thought content: Normal thought content present Insight: Good insight present (Psych) Judgement: Good judgement present (Psych) Office Meds Vivitrol 380 mg intramuscular suspension,extended release Performing Provider: Kiana Samano CNP Performing Location: [facility] Administered by: Valencia Norwood RN on 07/02/23 13:14 Dose Route Admin Location Dispensed Lot Number Expiration Date [facility] Leases And Land Supervisor 380 mg IM RG 380 mg 2023-3021T 06/14/25 26307-708-37 [employer] Assessment & Plan Assessment & Plan (1) Alcohol use disorder, severe, dependence: Code(s): F10.20 - Alcohol dependence, uncomplicated Category: Medical Plan: * tolerated injection * relapse prevention discussion * follow up 4 weeks (2) Major depressive disorder: Code(s): F32.9 - Major depressive disorder, single episode, unspecified Category: Medical Qualifiers: Major depression recurrence: recurrent Plan: * no change to sertraline dose Orders: Orders AMB Naltrexone Injection Patient Supplied (NC) Today F10.20 - Alcohol dependence, uncomplicated
== END 2023-07-02 13:16 | disposition home or self-care (01) ==
PROVIDERS: PCP Nurse Practitioner Family; Visit Provider Nurse Practitioner Psychiatric/Mental Health
DX: F10.20 Alcohol dependence, uncomplicated (principal); F32.9 Major depressive disorder, single episode, unspecified
CPT/HCPCS: 99213

== ENCOUNTER → 2023-07-02 12:51 | Outpatient (BNVA) | payer OTHER, SELFPAY | PROVIDERS: PCP Nurse Practitioner Family; Visit Provider Nurse Practitioner Psychiatric/Mental Health | DX: F10.20 Alcohol dependence, uncomplicated (principal); F32.9 Major depressive disorder, single episode, unspecified; Z79.899 Other long term (current) drug therapy; Z51.81 Encounter for therapeutic drug level monitoring | CPT/HCPCS: 96372; 99212; J2315 ==

== ENCOUNTER 2023-08-05 08:58 | Outpatient (AMB) | payer OTHER, SELFPAY ==
--- NOTE | 2023-08-05 09:49 | AM.OFFVISNUR ---
Intake Intake Visit Reasons: Christina Inj Allergies No Known Allergies Allergy (Verified 06/03/23 10:11) Nursing Note Patient here today in clinic for injection. Pt is alert and oriented x4, in good spirits, speaking in clear/full sentences. Denies any complications with previous injection. Office Meds Vivitrol 380 mg intramuscular suspension,extended release Performing Provider: Kiana Samano CNP Performing Location: [facility] Administered by: Valencia Norwood RN on 08/05/23 10:27 Dose Route Admin Location Dispensed Lot Number Expiration Date [facility] Iron Plastic Bullet Maker 380 mg IM RG 380 mg 2024-3001T 09/14/25 64569-345-06 [employer] Results AMB Test Urine AMB Test Urine Negative Last Edit by Valencia Norwood RN on 08/05/23 10:27 Coding Assessment & Plan Assessment & Plan Orders: Orders AMB Naltrexone Injection Patient Supplied (NC) Today F10.21 - Alcohol dependence, in remission AMB HCG Urine Test Today F10.21 - Alcohol dependence, in remission Medications: New Vivitrol ER (naltrexone microspheres) 380 mg IM ONCE 1 ea 0RF NS F10.21 - Alcohol dependence, in remission
== END 2023-08-05 09:56 | disposition home or self-care (01) ==
PROVIDERS: PCP Nurse Practitioner Family
DX: F10.21 Alcohol dependence, in remission (principal)

== ENCOUNTER → 2023-08-05 08:58 | Outpatient (BNVA) | payer OTHER, SELFPAY | PROVIDERS: PCP Nurse Practitioner Family | DX: F10.21 Alcohol dependence, in remission (principal); Z32.02 Encounter for pregnancy test, result negative | CPT/HCPCS: 81025; 96372; J2315 ==

== ENCOUNTER 2023-09-02 14:45 | Outpatient (AMB) | payer OTHER, SELFPAY ==
--- NOTE | 2023-09-02 16:12 | AM.OFFVISNUR ---
Intake Visit Reasons: Christina Allergies No Known Allergies Allergy (Verified 06/03/23 10:11) Nursing Note patient to office on 09/01 for vivitrol injection, which was given in the RG per orders. Patient denies any complications or concerns from previous injection. Pt alert and oriented x4, in good spirits, speaking in clear/full sentences, acknowledges 6 months of sobriety, was excited to let me know she is leading an AA meeting and feels she is doing well. Will see myself RN and provifder next visit for check in. Office Meds Vivitrol 380 mg intramuscular suspension,extended release Performing Provider: Kiana Samano CNP Performing Location: [facility] Administered by: Valencia Norwood RN on 09/02/23 08:52 Dose Route Admin Location Dispensed Lot Number Expiration Date [facility] Wardrobe Image Consultant 380 mg IM RG 380 mg 2023-3033T 09/14/25 87505-505-51 [employer] Assessment & Plan Assessment & Plan Orders: Orders AMB Naltrexone Injection Patient Supplied (NC) 09/02/23 F10.20 - Alcohol dependence, uncomplicated Medications: New Vivitrol ER (naltrexone microspheres) 380 mg IM ONCE 1 ea 0RF NS F10.20 - Alcohol dependence, uncomplicated
== END 2023-09-02 15:10 | disposition home or self-care (01) ==
PROVIDERS: PCP Nurse Practitioner Family
DX: F10.20 Alcohol dependence, uncomplicated (principal)

== ENCOUNTER → 2023-09-02 14:45 | Outpatient (BNVA) | payer OTHER, SELFPAY | PROVIDERS: PCP Nurse Practitioner Family | DX: F10.20 Alcohol dependence, uncomplicated (principal) | CPT/HCPCS: 96372; J2315 ==

== ENCOUNTER 2023-09-30 15:47 | Outpatient (AMB) | payer OTHER, SELFPAY ==
--- NOTE | 2023-10-01 15:02 | AM.OFFVISNUR ---
Intake Visit Reasons: Christina Allergies No Known Allergies Allergy (Verified 06/03/23 10:11) Nursing Note Patient Presents for Vivitrol Injection. Current Dose 380mg . Given in the RG with no noted or stated complication. Denies any issues with previous injection. Denies symptoms, and denies any break through cravings. Last appt with provider was >3 months, will follow up with RN in 4 weeks for injection. Will need to see provider for check in October . Office Meds Vivitrol 380 mg intramuscular suspension,extended release Performing Provider: Kiana Samano CNP Performing Location: [facility] Administered by: Valencia Norwood RN on 09/30/23 15:04 Dose Route Admin Location Dispensed Lot Number Expiration Date [facility] Ruling Machine Operator 380 mg IM LG 380 mg 2024-1011T 12/15/25 94250-689-23 [employer] Assessment & Plan Assessment & Plan Orders: Orders AMB Naltrexone Injection Patient Supplied (NC) 09/30/23 F10.20 - Alcohol dependence, uncomplicated Medications: New Vivitrol ER (naltrexone microspheres) 380 mg IM ONCE 1 ea 0RF NS F10.20 - Alcohol dependence, uncomplicated
== END 2023-09-30 16:36 | disposition home or self-care (01) ==
PROVIDERS: PCP Nurse Practitioner Family
DX: F10.20 Alcohol dependence, uncomplicated (principal)

== ENCOUNTER → 2023-09-30 15:47 | Outpatient (BNVA) | payer OTHER, SELFPAY | PROVIDERS: PCP Nurse Practitioner Family | DX: F11.20 Opioid dependence, uncomplicated (principal); Z51.81 Encounter for therapeutic drug level monitoring; Z79.899 Other long term (current) drug therapy | CPT/HCPCS: 96372; J2315 ==

== ENCOUNTER 2023-11-19 10:15 | Outpatient (AMB) | payer OTHER, SELFPAY ==
--- NOTE | 2023-11-19 10:25 | MHC.AM.SUB ---
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 discussed recent portal message where patient stated she was feeling unfocused states she was having a rough couple of days and that her message did not reflect an ongoing issue for her she will be starting school in 2 weeks--working on her masters still engaged with provider and sponsor Denies any cravings for alcohol--finds injeciton helpful [facility] Medical History (Updated 11/19/23 @ 14:48 by Kiana Samano CNP) History of gestational diabetes Hepatic steatosis GERD (gastroesophageal reflux disease) Alcohol use disorder, severe, in sustained remission Alcohol use disorder, severe, in early remission Alcohol use disorder, severe, dependence Tonsillectomy planned Alcohol withdrawal Depression Alcohol abuse Anxiety Post depression Family History Maternal Grandmother Breast cancer Social History Household Members: None Household Members Other:: Herself and children reside in the home setting. Housing: House Do you presently have visiting nurse or other home services: No Alcohol intake: never Comment: sleeping Patient Tobacco Use Status: Never used Tobacco service: No Current occupational status: employed Current occupation: [employer] Review of Systems Const Reports as per HPI and Reports no additional complaints Physical Exam Const General: cooperative, healthy appearing and well groomed Nutritional Appearance: average body habitus Orientation/consciousness: patient oriented x3 Limitations: no limitations Neuro General: patient oriented x3 Psych Appearance: well kempt Speech and movement: Clear speech present Affect: normal affect Attitude: cooperative Thought process: Normal thought process present Thought content: Normal thought content present Insight: Good insight present (Psych) Judgement: Good judgement present (Psych) Office Meds Vivitrol 380 mg intramuscular suspension,extended release Performing Provider: Kiana Samano CNP Performing Location: [facility] Administered by: Valencia Norwood RN on 11/19/23 14:12 Dose Route Admin Location Dispensed Lot Number Expiration Date [facility] Home Worker 380 mg IM LG 380 mg 2024-1014T 02/14/26 82716-124-85 [email or web address] Assessment & Plan Assessment & Plan (1) Alcohol use disorder, moderate, in early remission: Code(s): F10.21 - Alcohol dependence, in remission Category: Medical Plan: follow up 4 weeks relapse prevention discussion Orders: Orders AMB Naltrexone Injection Patient Supplied (NC) Today F10.21 - Alcohol dependence, in remission
== END 2023-11-19 10:59 | disposition home or self-care (01) ==
PROVIDERS: PCP Nurse Practitioner Family; Visit Provider Nurse Practitioner Psychiatric/Mental Health
DX: F10.21 Alcohol dependence, in remission (principal)
CPT/HCPCS: 99213

== ENCOUNTER → 2023-11-19 10:15 | Outpatient (BNVA) | payer OTHER, SELFPAY | PROVIDERS: PCP Nurse Practitioner Family; Visit Provider Nurse Practitioner Psychiatric/Mental Health | DX: F10.21 Alcohol dependence, in remission (principal) | CPT/HCPCS: 96372; J2315 ==

== ENCOUNTER 2024-01-26 15:14 | Outpatient (AMB) | payer OTHER, SELFPAY ==
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
--- NOTE | 2024-01-26 15:57 | AM.OFFVISNUR ---
Intake Visit Reasons: Vivitrol Injection Allergies No Known Allergies Allergy (Verified 06/03/23 10:11) Nursing Note Patient Presents for vivitrol Injection. Current Dose 380mg. Given in the with no noted or stated complications. Denies any issues with previous injection. Denies symptoms, and denies any break through cravings. Will follow up with RN in 4 weeks for injection. Will need to see provider for check in February, has not been seen in months due to injection delay. Office Meds Vivitrol 380 mg intramuscular suspension,extended release Performing Provider: Kiana Samano CNP Performing Location: [facility] Administered by: Valencia Norwood RN on 01/26/24 16:07 Dose Route Admin Location Dispensed Lot Number Expiration Date [facility] Local Area Network Administrator 380 mg IM RG 380 mg 2024-1027T 07/15/26 13552-226-59 [employer] Results AMB Test Urine AMB Test Urine Negative Last Edit by Valencia Norwood RN on 01/26/24 16:07 Assessment & Plan Assessment & Plan Orders: Orders AMB Naltrexone Injection Patient Supplied (NC) Today F10.20 - Alcohol dependence, uncomplicated AMB HCG Urine Test Today F10.20 - Alcohol dependence, uncomplicated Medications: New Vivitrol ER (naltrexone microspheres) 380 mg IM ONCE 1 ea 0RF NS F10.20 - Alcohol dependence, uncomplicated
== END 2024-01-26 15:46 | disposition home or self-care (01) ==
PROVIDERS: PCP Nurse Practitioner Family
DX: F10.20 Alcohol dependence, uncomplicated (principal)

== ENCOUNTER → 2024-01-26 15:14 | Outpatient (BNVA) | payer OTHER, SELFPAY | PROVIDERS: PCP Nurse Practitioner Family | DX: F10.20 Alcohol dependence, uncomplicated (principal); Z32.02 Encounter for pregnancy test, result negative; Z79.899 Other long term (current) drug therapy | CPT/HCPCS: 81025; 96372; J2315 ==

== ENCOUNTER 2024-02-23 15:14 | Outpatient (AMB) | payer OTHER, SELFPAY ==
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
== END 2024-02-23 16:53 | disposition home or self-care (01) ==
PROVIDERS: PCP Nurse Practitioner Family; Visit Provider Nurse Practitioner Psychiatric/Mental Health
DX: F10.20 Alcohol dependence, uncomplicated (principal)
CPT/HCPCS: 99214

== ENCOUNTER → 2024-02-23 15:14 | Outpatient (BNVA) | payer OTHER, SELFPAY | PROVIDERS: PCP Nurse Practitioner Family; Visit Provider Nurse Practitioner Psychiatric/Mental Health | DX: F10.21 Alcohol dependence, in remission (principal); F33.1 Major depressive disorder, recurrent, moderate; Z79.899 Other long term (current) drug therapy | CPT/HCPCS: 81025; 96372; J2315 ==

== ENCOUNTER 2024-04-07 09:00 | Outpatient (AMB) | payer OTHER, SELFPAY ==
[2024-04-07 09:00] VITALS: BP 130/80; PULSE 98; RESP 19; O2SAT 98
--- OUTSIDE RECORDS SUMMARY | 2024-04-07 09:28 | XMS_ITS | Continuity of Care Document ---
Author Name [facility] Organization [facility] Care Team Providers Care Treasury Analyst Name Role Phone [facility] Unavailable Unavailable Problems Combined list of problems from Department of Defense and Veterans Affairs facilities. It does not include entries that were removed or entered in error. Problem Status Onset Date Problem Type Date of Resolution Comments Source Diagnosis: ICD-10-CM Z02.89 Encounter for other administrative examinations Active Diagnosis PA [facility] [place] [facility] Results Combined list of recent chemistry, hematology and other laboratory results from Department of Defense and Veterans Affairs, ranging from 15 months to all on record, depending upon the facility. Order Name Results Value Reference Range Date Interpretation Specimen Comments Source T-SPOT TB PANEL MYCOBACTER IUM TUBERCULOS IS STIMULATED GAMMA INTERFERON [INTERPRET ATION] IN BLOOD QUALITATIV E Negative 03/01 Specimen Type: BLOOD Comment: A negative test result does not exclude the possibility of exposure to or infection with Mycobacteri um tuberculosi s (M. tuberculosi s). Patients with recent exposure to TB infected individuals exhibiting a negative T-SPOT.TB result should be considered for retesting within 6 weeks or if other relevant clinical symptoms indicate. Results from T-SPOT.TB testing must be used in conjunction with each individual' s epidemiolog ical history, current medical status, and results of other diagnostic evaluations . The T-SPOT.TB test is qualitative and results are reported as positive, borderline, or negative, given that the test controls perform as expected. In line with the Centers for Disease Control and Prevention' s 2010 recommendat ion to report quantitativ e measurement s alongside the qualitative result, the laboratory provides spot counts for information al purposes only. The T-SPOT.TB test should not be interpreted as a quantitativ e test. For additional information , please refer to [email or web address] [email or web address]/faq/FA Q215 (This link is being provided for information al/ educational purposes only.) Test Performed by Sam Patrick, [facility], [address] [place] [address] Sarabjit Marcus M.D., Ph.D., Director of Laboratorie s , CLIA [id number] TEST PERFORMED AT: , Ordering Provider: WILMER ANDRES Report Released Date/Time: Mar 01, 2024 10:22 AM Reporting Lab: [facility] [address] [facility] [address] Performing Lab: [facility] [address] [address] [facility] T-SPOT TB PANEL MYCOBACTER IUM TUBERCULOS IS STIMULATED GAMMA INTERFERON ESAT-6 AG SPOT COUNT [#] IN BLOOD 0 03/01 Specimen Type: BLOOD Comment: A negative test result does not exclude the possibility of exposure to or infection with Mycobacteri um tuberculosi s (M. tuberculosi s). Patients with recent exposure to TB infected individuals exhibiting a negative T-SPOT.TB result should be considered for retesting within 6 weeks or if other relevant clinical symptoms indicate. Results from T-SPOT.TB testing must be used in conjunction with each individual' s epidemiolog ical history, current medical status, and results of other diagnostic evaluations . The T-SPOT.TB test is qualitative and results are reported as positive, borderline, or negative, given that the test controls perform as expected. In line with the Centers for Disease Control and Prevention' s 2010 recommendat ion to report quantitativ e measurement s alongside the qualitative result, the laboratory provides spot counts for information al purposes only. The T-SPOT.TB test should not be interpreted as a quantitativ e test. For additional information , please refer to [email or web address] [email or web address] [email or web address]/faq/FA Q215 (This link is being provided for information al/ educational purposes only.) Test Performed by [facility], [facility], [address] [place] [address] Sarabjit Marcus M.D., Ph.D., Director of Laboratorie s , CLIA [id number] TEST PERFORMED AT: , Ordering Provider: WILMER ANDRES Report Released Date/Time: Mar 01, 2024 10:22 AM Reporting Lab: [facility] [address] [facility] [address] Performing Lab: [facility] [id number] [place] [address] T-SPOT TB PANEL MYCOBACTER IUM TUBERCULOS IS STIMULATED GAMMA INTERFERON CFP10 AG SPOT COUNT [#] IN BLOOD 0 03/01 Specimen Type: BLOOD Comment: A negative test result does not exclude the possibility of exposure to or infection with Mycobacteri um tuberculosi s (M. tuberculosi s). Patients with recent exposure to TB infected individuals exhibiting a negative T-SPOT.TB result should be considered for retesting within 6 weeks or if other relevant clinical symptoms indicate. Results from T-SPOT.TB testing must be used in conjunction with each individual' s epidemiolog ical history, current medical status, and results of other diagnostic evaluations . The T-SPOT.TB test is qualitative and results are reported as positive, borderline, or negative, given that the test controls perform as expected. In line with the Centers for Disease Control and Prevention' s 2010 recommendat ion to report quantitativ e measurement s alongside the qualitative result, the laboratory provides spot counts for information al purposes only. The T-SPOT.TB test should not be interpreted as a quantitativ e test. For additional information , please refer to [email or web address] [email or web address]/faq/FA Q215 (This link is being provided for information al/ educational purposes only.) Test Performed by [facility], [facility], [address] [place] [address] Sarabjit Marcus M.D., Ph.D., Director of Laboratorie s , CLIA [id number] TEST PERFORMED AT: , Ordering Provider: WILMER ANDRES E Report Released Date/Time: Mar 01, 2024 10:22 AM Reporting Lab: [facility] [address] [facility] [address] Performing Lab: [place] [id number] [facility] T-SPOT TB PANEL MITOGEN STIMULATED GAMMA INTERFERON POSITIVE CONTROL SPOT COUNT [#] IN BLOOD Passed 03/01 Specimen Type: BLOOD Comment: A negative test result does not exclude the possibility of exposure to or infection with Mycobacteri um tuberculosi s (M. tuberculosi s). Patients with recent exposure to TB infected individuals exhibiting a negative T-SPOT.TB result should be considered for retesting within 6 weeks or if other relevant clinical symptoms indicate. Results from T-SPOT.TB testing must be used in conjunction with each individual' s epidemiolog ical history, current medical status, and results of other diagnostic evaluations . The T-SPOT.TB test is qualitative and results are reported as positive, borderline, or negative, given that the test controls perform as expected. In line with the Centers for Disease Control and Prevention' s 2010 recommendat ion to report quantitativ e measurement s alongside the qualitative result, the laboratory provides spot counts for information al purposes only. The T-SPOT.TB test should not be interpreted as a quantitativ e test. For additional information , please refer to [email or web address] [email or web address] [email or web address]/faq/FA Q215 (This link is being provided for information al/ educational purposes only.) Test Performed by [facility], [facility], [address] [place] [address] Sarabjit Marcus M.D., Ph.D., Director of Laboratorie s , [place] [id number] TEST PERFORMED AT: , Ordering Provider: WILMER ANDRES Report Released Date/Time: Mar 01, 2024 10:22 AM Reporting Lab: [facility] [address] [facility] [address] Performing Lab: [facility] [address] [address] [facility] T-SPOT TB PANEL GAMMA INTERFERON NEGATIVE CONTROL SPOT COUNT [#] IN BLOOD Passed 03/01 Specimen Type: BLOOD Comment: A negative test result does not exclude the possibility of exposure to or infection with Mycobacteri um tuberculosi s (M. tuberculosi s). Patients with recent exposure to TB infected individuals exhibiting a negative T-SPOT.TB result should be considered for retesting within 6 weeks or if other relevant clinical symptoms indicate. Results from T-SPOT.TB testing must be used in conjunction with each individual' s epidemiolog ical history, current medical status, and results of other diagnostic evaluations . The T-SPOT.TB test is qualitative and results are reported as positive, borderline, or negative, given that the test controls perform as expected. In line with the Centers for Disease Control and Prevention' s 2010 recommendat ion to report quantitativ e measurement s alongside the qualitative result, the laboratory provides spot counts for information al purposes only. The T-SPOT.TB test should not be interpreted as a quantitativ e test. For additional information , please refer to [email or web address] [email or web address] [employer] [email or web address]/faq/FA Q215 (This link is being provided for information al/ educational purposes only.) [facility], [facility], [address] [place] [address] Sarabjit Marcus M.D., Ph.D., Director of Laboratorie s , CLIA [id number] TEST PERFORMED AT: , Ordering Provider: WILMER ANDRES Report Released Date/Time: Mar 01, 2024 10:22 AM Reporting Lab: [facility] [address] [facility] [address] Performing Lab: [facility] [address] [address] [facility] MMRV (IGG) IMMUNE STATUS PANEL MEASLES VIRUS IGG AB [PRESENCE] IN SERUM BY IMMUNOASSA Y REACTIVE 03/01 Specimen Type: SERUM Comment: A result of 'REACTIVE' indicates presence of IgG to Measles, Mumps, Rubella or Varicella following exposure to these viruses through either infection or vaccination . If quantitativ e index values are required for clinical interpretat ion, call Virology Reference lab during weekday business hours. Ordering Provider: WILMER ANDRES Report Released Date/Time: Mar 01, 2024 10:22 AM Reporting Lab: [address] [address] Performing Lab: [address] [address] [facility] MMRV (IGG) IMMUNE STATUS PANEL MUMPS VIRUS IGG AB [PRESENCE] IN SERUM BY IMMUNOASSA Y REACTIVE 03/01 Specimen Type: SERUM Comment: A result of 'REACTIVE' indicates presence of IgG to Measles, Mumps, Rubella or Varicella following exposure to these viruses through either infection or vaccination . If quantitativ e index values are required for clinical interpretat ion, call Virology Reference lab during weekday business hours. Ordering Provider: WILMER ANDRES Report Released Date/Time: Mar 01, 2024 10:22 AM Reporting Lab: [address] [address] Performing Lab: [address] [address] [facility] MMRV (IGG) IMMUNE STATUS PANEL RUBELLA VIRUS IGG AB [PRESENCE] IN SERUM OR PLASMA BY IMMUNOASSA Y REACTIVE 03/01 Specimen Type: SERUM Comment: A result of 'REACTIVE' indicates presence of IgG to Measles, Mumps, Rubella or Varicella following exposure to these viruses through either infection or vaccination . If quantitativ e index values are required for clinical interpretat ion, call Virology Reference lab during weekday business hours. Ordering Provider: WILMER ANDRES Report Released Date/Time: Mar 01, 2024 10:22 AM Reporting Lab: [address] [address] Performing Lab: [address] [address] [facility] MMRV (IGG) IMMUNE STATUS PANEL VARICELLA ZOSTER VIRUS IGG AB [PRESENCE] IN SERUM BY IMMUNOASSA Y NON-REAC TIVE 03/01 Specimen Type: SERUM Comment: A result of 'REACTIVE' indicates presence of IgG to Measles, Mumps, Rubella or Varicella following exposure to these viruses through either infection or vaccination . If quantitativ e index values are required for clinical interpretat ion, call Virology Reference lab during weekday business hours. Ordering Provider: WILMER ANDRES Report Released Date/Time: Mar 01, 2024 10:22 AM Reporting Lab: [facility] [address] [facility] [address] Performing Lab: [facility] [address] [facility] [address] [facility] HEPATITI S B SURFACE ANTIBODY (HBsAb)- WH HEPATITIS B VIRUS SURFACE AB [PRESENCE] IN SERUM BY IMMUNOASSA Y Non Reactive 03/01 Specimen Type: SERUM No comment entered. Ordering Provider: WILMER ANDRES Report Released Date/Time: Mar 01, 2024 10:22 AM Reporting Lab: [facility] [address] [facility] [address] Performing Lab: [facility] [address] [facility] [address] [facility] Encounters Combined list of: 1) Encounters from Department of Veterans Affairs facilities going backup to the last 18 months, not all VA inpatient encounters are included; 2) Encounters from the Department of Defense facilities going backup to 280 months. Location Location Details Encounter Type Encounter Number Reason For Visit Attending Provider ADM Date DC Date Status Disposition Source [facility] OFFICE O/P NEW LOW 30 MIN [id number] Diagnos is: ICD-10- CM Z02.89 Encount er for other adminis trative examina tions MANUEL ANDRES 03/01 [facility]
--- OUTSIDE RECORDS SUMMARY | 2024-04-07 09:28 | XMS_ITS | Clinical Summary ---
Author Organization [facility] ity Address [address] [place] [address] Care Team Providers Care Blown Film Extrusion Operator Name Role Phone Unavailable Primary Care Provider Unavailabl e Social History Tobacco Use Types Packs/Day Years Used Date Smoking Tobacco: Never Assessed Comments Unknown Sex and Gender Information Value Date Recorded Sex Assigned at Not on file Legal Sex Female 8:08 PM EST Gender Identity Not on file Sexual Orientation Not on file Plan of Treatment Health Maintenance Due Date Last Done Comments DTaP,Tdap,and Td Vaccines (1 - Tdap) 02/27/2012 Hepatitis B Vaccines (1 of 3 - 19+ 3-dose series) 02/27/2012 Cervical Cancer Screening: P ap Smear 2014 COVID-19 Vaccine ( - 2023-2 5 season) 2023 Influenza Vaccine (#1) 2023 HIB Vaccines Aged Out No longer eligi ble based on patient's age to complete this topic HPV Vaccines Aged Out No longer eligi ble based on patient's age to complete this topic Hepatitis A Vaccines Aged Out No long er eligible based on patient's age to complete this topic IPV Vaccines Aged Out No longer eligi ble based on patient's age to complete this topic MMR Vaccines Aged Out No longer eligi ble based on patient's age to complete this topic Meningococcal ACWY Vaccine Aged Out N o longer eligible based on patient's age to complete this topic Meningococcal B Vacine Aged Out No lo nger eligible based on patient's age to complete this topic Pneumococcal Vaccine: Pediat rics (0 to 5 Years) and At-Risk Patients (6 to 64 Years) Aged Out No longer eligible b ased on patient's age to complete this topic RSV Immunization Patients Un guera 20 months Aged Out No longer eligible b ased on patient's age to complete this topic Varicella Vaccines Aged Out No longer eligible based on patient's age to complete this topic
--- NOTE | 2024-04-07 10:43 | AM.OFFVISNUR ---
Vital Signs 04/07/24 09:00 BP 130/80 Blood Pressure Location Rt radial Position Sitting Respiration 19 Pulse 98 Pulse Oximetry (%) 98 Oxygen Delivery Method Room Air Intake Visit Reasons: Injection Allergies No Known Allergies Allergy (Verified 06/03/23 10:11) Nursing Note Patient Presents for vivitrol Injection. Given in the LG with no noted or stated complications. Denies any issues with previous injection. Denies symptoms, and denies any break through cravings. Will follow up with RN in 4 weeks for injection. Will need to see provider for check in next month as well . Office Meds Vivitrol 380 mg intramuscular suspension,extended release Performing Provider: Kiana Samano CNP Performing Location: [facility] Administered by: Valencia Norwood RN on 04/07/24 14:57 Dose Route Admin Location Dispensed Lot Number Expiration Date [facility] Landscape [employer]er 380 mg IM LG 380 mg 2024-1043T 10/15/26 01672-821-10 [employer] Results AMB Test Urine AMB Test Urine Negative Last Edit by Valencia Norwood RN on 04/07/24 14:58 AMB 14 Panel Urine Drug Screen Urine Marijuana (THC) Negative Last Edit by Valencia Norwood RN on 04/07/24 14:59 Urine Cocaine Negative Last Edit by Valencia Norwood RN on 04/07/24 14:59 Urine Morphine Negative Last Edit by Valencia Norwood RN on 04/07/24 14:59 Urine Methamphetamine Negative Last Edit by Valencia Norwood RN on 04/07/24 14:59 Urine Amphetamine Negative Last Edit by Valencia Norwood RN on 04/07/24 14:59 Urine Benzodiazepine Negative Last Edit by Valencia Norwood RN on 04/07/24 14:59 Urine Barbiturates Negative Last Edit by Valencia Norwood RN on 04/07/24 14:59 Urine Methadone Negative Last Edit by Valencia Norwood RN on 04/07/24 14:59 Urine Buprenorphine Negative Last Edit by Valencia Norwood RN on 04/07/24 14:59 Urine Tricyclic Antidepressant Negative Last Edit by Valencia Norwood RN on 04/07/24 14:59 Urine MDMA Negative Last Edit by Valencia Norwood RN on 04/07/24 14:59 Urine Oxycodone Negative Last Edit by Valencia Norwood RN on 04/07/24 14:59 Urine Phencyclidine Negative Last Edit by Valencia Norwood RN on 04/07/24 14:59 Urine Propoxyphene Negative Last Edit by Valencia Norwood RN on 04/07/24 14:59 Assessment & Plan Assessment & Plan Orders: Orders AMB 14 Panel Urine Drug Screen Today F10.21 - Alcohol dependence, in remission AMB Naltrexone Injection Patient Supplied (NC) Today F10.21 - Alcohol dependence, in remission AMB HCG Urine Test Today F10.21 - Alcohol dependence, in remission Medications: New Vivitrol ER (naltrexone microspheres) 380 mg IM ONCE 1 ea 0RF NS F10.21 - Alcohol dependence, in remission Coding
== END 2024-04-07 11:38 | disposition home or self-care (01) ==
PROVIDERS: PCP Nurse Practitioner Family
DX: F10.21 Alcohol dependence, in remission (principal)

== ENCOUNTER → 2024-04-07 09:00 | Outpatient (BNVA) | payer OTHER, SELFPAY | PROVIDERS: PCP Nurse Practitioner Family | DX: F10.21 Alcohol dependence, in remission (principal) | CPT/HCPCS: 80307; 81025; 96372; J2315 ==

== ENCOUNTER → 2024-05-02 16:04 | Outpatient (BNVA) | payer OTHER, SELFPAY | PROVIDERS: PCP Nurse Practitioner Family | DX: F10.21 Alcohol dependence, in remission (principal) | CPT/HCPCS: 96372; J2315 ==

== ENCOUNTER → 2024-05-02 16:04 | Outpatient (AMB) | payer OTHER, SELFPAY ==
[2024-05-02 14:36] VITALS: BP 120/80; PULSE 88; RESP 20
[2024-05-02 16:00] VITALS: BP 130/80; PULSE 88; RESP 19; O2SAT 99
--- OUTSIDE RECORDS SUMMARY | 2024-05-02 18:42 | XMS_ITS | Clinical Summary ---
Author Organization [facility] ity Address [address] [place] [address] Care Team Providers Care Honing Machine Operator Semiautomatic Name Role Phone Unavailable Primary Care Provider [...]
--- NOTE | 2024-05-03 08:15 | AM.OFFVISNUR ---
Vital Signs 05/02/24 14:36 05/02/24 16:00 BP 120/80 130/80 Blood Pressure Location Rt brachial Rt brachial Position Sitting Sitting Respiration 20 19 Pulse 88 88 Pulse Source Pulse Oximeter Pulse Oximeter Pulse Oximetry (%) 99 Oxygen Delivery Method Room Air Intake Visit Reasons: Vivitrol Injection Allergies No Known Allergies Allergy (Verified 06/03/23 10:11) Nursing Note Patient Presents for vivitrol Injection. Current Dose 380mg . Given in the RG with no noted or stated complication. Denies any issues with previous injection. Denies symptoms, and denies any break through cravings. Will follow up with RN in 4 weeks for injection. Office Meds Vivitrol 380 mg intramuscular suspension,extended release Performing Provider: Kiana Samano CNP Performing Location: [facility] Administered by: Valencia Norwood RN on 05/03/24 10:54 Dose Route Admin Location Dispensed Lot Number Expiration Date [facility][NOTE 3] [employer]ger 380 mg IM RG 380 mg 2024-1036T 08/14/26 24808-764-37 [employer] Assessment & Plan Assessment & Plan Orders: Orders AMB Naltrexone Injection - Practice Supplied 05/02/24 F10.21 - Alcohol dependence, in remission Coding
== END ==
LOC: HO.HCC 16:04
PROVIDERS: PCP Nurse Practitioner Family
DX: F10.21 Alcohol dependence, in remission (principal)

== ENCOUNTER → 2024-05-30 16:17 | Outpatient (BNVA) | payer OTHER, SELFPAY | PROVIDERS: PCP Nurse Practitioner Family | DX: F10.21 Alcohol dependence, in remission (principal) | CPT/HCPCS: 96372; J2315 ==

== ENCOUNTER → 2024-06-27 16:07 | Outpatient (BNVA) | payer OTHER, SELFPAY | PROVIDERS: PCP Nurse Practitioner Family; Visit Provider Internal Medicine | DX: F10.21 Alcohol dependence, in remission (principal) | CPT/HCPCS: 81025; 96372; J2315 ==

== ENCOUNTER → 2024-06-27 16:07 | Outpatient (AMB) | payer OTHER, SELFPAY ==
--- NOTE | 2024-06-27 16:25 | AM.OFFVISNUR ---
Vital Signs 06/27/24 16:50 BP 126/82 Blood Pressure Location Rt brachial Position Sitting Intake Visit Reasons: Injection Allergies No Known Allergies Allergy (Verified 06/03/23 10:11) Nursing Note Xiomara presents for 4 week AUD follow up and Vivitrol injection. Xiomara is alert and oriented x4,calm and cooperative with appropriate affect. Xiomara proudly reports just about 17 months of sobriety and is being re-unified/regaining full custody of her children after a 5 years this July; her children are 5 and 7 years old. Xiomara reports no cravings or symptoms between injections. Xiomara attends weekly AA meetings and has a sponsor for support. Four week nursing follow-up scheduled for next injection- she needs appointments on Wednesday or . Office Meds Vivitrol 380 mg intramuscular suspension,extended release Performing Provider: Ariadna Sethi MD Performing Location: [facility] Administered by: Rosie Herring RN on 06/27/24 16:52 Dose Route Admin Location Dispensed Lot Number Expiration Date [facility] [employer] Consultant 380 mg IM RG 380 mg 2024-1048T 11/14/26 36986-514-45 [employer] Comments: Patient present for 4 week AUD follow up and Vivitrol injection. No concerns stated or observed regarding previous injection; injection tolerated well. Educated on signs and symptoms of infection and urged to call [facility] if any concerns arise. Patient verbalized understanding. Follow up made in 4 weeks. Results AMB Test Urine AMB Test Urine Negative Last Edit by Rosie Herring RN on 06/27/24 16:52 Assessment & Plan Assessment & Plan Orders: Orders AMB Naltrexone Injection - Practice Supplied Today F10.21 - Alcohol dependence, in remission AMB HCG Urine Test Today F10.21 - Alcohol dependence, in remission Medications: New Vivitrol ER (naltrexone microspheres) 380 mg IM ONCE 1 ea 0RF NS F10.21 - Alcohol dependence, in remission Coding
--- OUTSIDE RECORDS SUMMARY | 2024-06-27 16:36 | XMS_ITS | Clinical Summary ---
Author Organization [facility] ity Address [address] [place] [address] Care Team Providers Care Community Education Specialist Name Role Phone Unavailable Primary Care Provider [...] - 2023-2 5 season) 2023 Influenza Vaccine (Season Ended) 2024 HIB Vaccines Aged Out No longer eligi [...] age to complete this topic Meningococcal B Vaccine Aged Out No l onger eligible based on patient's age to complete [...]
[2024-06-27 16:50] VITALS: BP 126/82
== END ==
LOC: HO.HCC 16:08
PROVIDERS: PCP Nurse Practitioner Family; Visit Provider Internal Medicine
DX: F10.21 Alcohol dependence, in remission (principal)

== ENCOUNTER → 2024-07-25 15:57 | Outpatient (BNVA) | payer OTHER, SELFPAY | PROVIDERS: PCP Nurse Practitioner Family | DX: F10.21 Alcohol dependence, in remission (principal) | CPT/HCPCS: 81025; 96372; J2315 ==

== ENCOUNTER → 2024-07-25 15:57 | Outpatient (AMB) | payer OTHER, SELFPAY ==
[2024-07-25 16:17] VITALS: BP 121/71; PULSE 66; O2SAT 99
--- NOTE | 2024-07-25 16:17 | AM.OFFVISNUR ---
Vital Signs 07/25/24 16:17 BP 121/71 Blood Pressure Location Rt brachial Position Sitting Pulse 66 Pulse Source Pulse Oximeter Pulse Oximetry (%) 99 Oxygen Delivery Method Room Air Intake Visit Reasons: Injection Allergies No Known Allergies Allergy (Verified 06/03/23 10:11) Nursing Note Xiomara presents today for 4 week AUD check in and Vivitrol injection. Xiomara is alert, oriented calm and cooperative. Xiomara reports no issues or breakthrough cravings and reports stability in sustained remission. She continues with weekly AA meetings and reports that she is going to a sober convention/event in another part of the state in September. Xiomara will be going to court in the beginning of August for final reunification with her children. Follow up appointment made in four weeks. Office Meds Vivitrol 380 mg intramuscular suspension,extended release Performing Provider: Ariadna Sethi MD Performing Location: [facility] Administered by: Rosie Herring RN on 07/25/24 16:44 Dose Route Admin Location Dispensed Lot Number Expiration Date [facility] [employer] Driver 380 mg IM LG 380 mg 2024-1059T 12/15/26 05825-874-87 [employer] Comments: Pt denies any issues with previous injection and tolerated injection well. Pt educated on signs and symptoms of infection- urged to call [facility] with any questions or concerns. Pt verbalized understanding. follow-up appointment made in 4 weeks for next injection. Results AMB Test Urine AMB Test Urine Negative Last Edit by Rosie Herring RN on 07/25/24 16:23 Assessment & Plan Assessment & Plan Orders: Orders AMB HCG Urine Test Today F10.21 - Alcohol dependence, in remission AMB Naltrexone Injection - Practice Supplied Today F10.21 - Alcohol dependence, in remission Coding
--- OUTSIDE RECORDS SUMMARY | 2024-07-25 18:51 | XMS_ITS | Clinical Summary ---
Author Organization [facility] ity Address [address] [place] [address] Care Team Providers Care Clinical Staff Pharmacist Name Role Phone Unavailable Primary Care Provider [...]
== END ==
LOC: HO.HCC 15:57
PROVIDERS: PCP Nurse Practitioner Family
DX: F10.21 Alcohol dependence, in remission (principal)

== ENCOUNTER 2024-08-23 14:52 | Outpatient (AMB) | payer OTHER, SELFPAY ==
--- OUTSIDE RECORDS SUMMARY | 2024-08-23 15:20 | XMS_ITS | Clinical Summary ---
Author Organization [facility] ity Address [address] [place] [address] Care Team Providers Care Senior Functional Analyst Name Role Phone Unavailable Primary Care Provider [...] 2023-2 5 season) 2023 Influenza Vaccine (#1) 2024 HIB Vaccines Aged Out No longer [...] 5 Years) and At-Risk Patients (6 to 49 Years) Aged Out No longer eligible b ased on patient's age to complete this topic RSV Immunization Patients Un guera 20 months Aged Out No longer eligible b ased on patient's age to complete this topic Varicella Vaccines Aged Out No longer eligible based on patient's age to complete this topic
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
== END 2024-08-23 16:42 | disposition home or self-care (01) ==
LOC: HO.HCC 14:52
PROVIDERS: PCP Nurse Practitioner Family; Visit Provider Internal Medicine
DX: F10.21 Alcohol dependence, in remission (principal)
CPT/HCPCS: 99213

== ENCOUNTER 2024-09-21 14:17 | Outpatient (AMB) | payer OTHER, SELFPAY ==
--- OUTSIDE RECORDS SUMMARY | 2024-09-21 14:20 | XMS_ITS | Clinical Summary ---
Author Organization [facility] ity Address [address] [place] [address] Care Team Providers Care Supervisor Loading Name Role Phone Unavailable Primary Care Provider [...] Screening: P ap Smear 2014 COVID-19 Vaccine (1 - 2023-2 5 season) 2023 Depression Screening 02/16/2024 Influenza Vaccine (#1) 2024 HIB Vaccines Aged [...]
[2024-09-21 14:23] VITALS: BP 100/60; PULSE 88; O2SAT 98
--- NOTE | 2024-09-21 14:23 | A.OFFVIS_ITS ---
Vital Signs 09/21/24 14:23 Weight 178 lb BP 100/60 Pulse 88 Pulse Oximetry (%) 98 Intake Visit Reasons: mat visit Allergies No Known Allergies Allergy (Verified 09/21/24 14:24) HPI Comments Details: The patient is a 29-year-old female presents for follow-up visit related to alcohol use disorder in remission with naltrexone tablets. Denies consumption of alcohol, opiates, or other substances. Reports looking forward to and extend the weekend getaway to [place] and getting children ready to start school in the fall. [facility] Medical History Alcohol use disorder, severe, in sustained remission History of gestational diabetes Hepatic steatosis GERD (gastroesophageal reflux disease) Alcohol use disorder, severe, in early remission Alcohol use disorder, severe, dependence Tonsillectomy planned Alcohol withdrawal Alcohol abuse Post depression Family History Maternal Grandmother Breast cancer Social History Household Members: None Household Members Other:: Herself and children reside in the home setting. Housing: House Do you presently have visiting nurse or other home services: No Alcohol intake: never Comment: sleeping Patient Tobacco Use Status: Never used Tobacco service: No Current occupational status: employed Current occupation: [employer] Review of Systems Const All systems reviewed & are unremarkable except as noted in HPI and below Physical Exam Vital Signs: Last Vital Signs Pulse 88 09/21/24 14:23 BP 100/60 09/21/24 14:23 Pulse Ox 98 09/21/24 14:23 Const General: cooperative and well groomed Orientation/consciousness: patient oriented x3 Limitations: no limitations Neuro General: patient oriented x3 Psych Appearance: well kempt Mental Status: mental status grossly normal Speech and movement: Normal speech and movement present Affect: normal affect Attitude: cooperative Thought process: Normal thought process present Thought content: Normal thought content present Insight: Good insight present (Psych) Judgement: Good judgement present (Psych) Assessment & Plan Assessment & Plan (1) Alcohol use disorder, severe, in sustained remission: Comment: She is doing well Code(s): F10.21 - Alcohol dependence, in remission Category: Medical Plan The plan of care is to continue with naltrexone 50 mg daily and follow up in two months or sooner, if needed. Patient Instructions: - Continue with naltrexone tablets as prescribed. - Follow up in two months or sooner, if needed. - Call with questions, concerns, or to report side effects/new onset of symptoms to [facility]. - The patient verbalized understanding and agreed with plan of care. Coding Level of Care Code Tele Est Pt Level 3 (88944) Diagnoses Alcohol use disorder, severe, in sustained remission F10.21
== END 2024-09-21 14:40 | disposition home or self-care (01) ==
LOC: HO.HCC 14:17
PROVIDERS: PCP Nurse Practitioner Family; Visit Provider Clinical Nurse Specialist Psychiatric/Mental Health
DX: F10.21 Alcohol dependence, in remission (principal)
CPT/HCPCS: 99213